=== PATIENT | male | born 1940 | race Caucasian/White ===

== ENCOUNTER 2018-11-12 08:39 | Inpatient (IN) ==
[2018-11-12] MEDS ORDERED: SALINE LOCK IV FLUID XX ONE (08:44)
[2018-11-12] MEDS ORDERED: TYLENOL PO PRN (08:44)
[2018-11-12] MEDS ORDERED: PERCOCET-10 PO PRN (09:49)
[2018-11-12 10:44] LABS: BASO# 0.02 X1000 (0.0-0.2); BASO% 0.2 % (0.0-0.8); EOS# 0.12 X1000 (0.0-0.7); EOS% 1.5 % (0.0-10.0); HEMATOCRIT 43.7 % (42.0-52.0); HEMOGLOBIN 13.6 g/dL (14.0-18.0); IMM GRAN# 0.05 X1000 (0.0-0.04); IMM GRAN% 0.6 % (0.0-0.5); LYMPH# 0.48 X1000 (1.2-3.4); LYMPH% 5.9 % (20.5-51.1); MCH 31.9 PG (27-31); MCHC 31.1 g/dL (33-37); MCV 102.6 FL (81-99); MONO# 0.45 X1000 (0.11-0.59); MONO% 5.5 % (1.7-9.3); MPV 10.3 FL (7.4-10.4); NEUT# 7.05 X1000 (1.4-6.5); NEUT% 86.3 % (42.2-75.2); PLT 183 X1000 (130-400); RBC 4.26 XMIL (4.7-6.1); RDW 16.9 % (11.5-14.5); WBC 8.17 X1000 (4.8-10.8)
[2018-11-12 10:48] LABS: ALLEN TEST YES; BLOOD TYPE ARTERIAL; HCO3-(ACT) 28.4 mmoll (20.0-26.0); METHB 0.6 % (0.0-1.5); O2(CT) 23.2 mL/dL (15.0-23.0); PO2(98.6) 58 mmHg (60-100); SAMPLE BLOOD; SAO2 89.9 % (95.0-100.0); THB 18.9 g/dL (11.5-17.4)
[2018-11-12 10:50] LABS: MODALITY ROOM AIR
[2018-11-12 10:57] LABS: AGAP 12; ALB/GLOB RATIO 1.3; ALBUMIN 3.9 g/dL (3.5-5.0); ALKALINE PHOSPHATASE 90 U/L (32-122); BUN 21 mg/dL (8-22); CALCIUM 10.3 mg/dL (8.8-10.2); CHLORIDE 101 mmol/L (98-107); CK PROFILE 31 U/L (24-204); COSMO 293; CREATININE 0.9 mg/dL (0.7-1.2); ESTIMATED GFR > 60; GLUCOSE 117 mg/dL (70-104); GOT 16 U/L (10-34); GPT 31 U/L (10-44); POTASSIUM 4.3 mmol/L (3.5-5.1); SODIUM 145 mmol/L (136-145); TCO2 32 mmol/L (25-35); TOTAL BILIRUBIN 0.75 mg/dL (0.20-1.00); TOTAL PROTEIN 6.8 g/dL (6.3-8.3)
[2018-11-12 11:05] LABS: PCO2(98.6) 51 mmHg (35-45)
[2018-11-12 11:07] LABS: O2HB 87.8 % (95.0-99.0)
[2018-11-12 11:16] LABS: BANDS 6 % (0-1); LYMPHS 6 % (21-51); MONO 4 % (1-9); SEGS 84 % (42-75)
--- NOTE | 2018-11-12 12:09 | Diag Imaging Result Doc PS360 ---
EXAM: MRI LOW EXT JT W/WO CON-RIGHT 11/12/2018 HISTORY: FALL PAIN RT HIP TECHNIQUE: Axial proton density fat sat, T1, T1 fat sat with contrast, coronal T1 STIR and post contrast T1 fat sat. Sagittal T2 fat sat. COMMENT: There are no previous MR studies of the pelvis. 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 There is an effusion. There is also apparent nondisplaced fracture of the femoral neck. Neither of these abnormalities were visible on the CT of the pelvis dated 07/21/2018. There is bone marrow edema all around the acetabulum particularly posteriorly. There is contrast enhancement in the femoral head and neck as well as in the acetabulum and capsule of the hip. There is some abnormal enhancement anterior to the piriformis muscle and posterior to the hip. 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 Apparent involvement of the femoral neck with inflammatory change and apparently nondisplaced fracture. Correlation with plain radiographs and/or CT is recommended. Electronically signed by Baltazar Barker 11/12/2018 12:07 PM
--- NOTE | 2018-11-12 12:10 | Diag Imaging Result Doc PS360 ---
XRAY HIP UNILATERAL RT - 11/12/2018 INDICATION: RIGHT HIP PAIN TECHNIQUE: COMPARISON: None FINDINGS: There is no fracture or dislocation. There is some mild narrowing of the superior joint space. There is some flattening of the femoral head, or else congenital widening of the proximal femoral neck which may lead to cam type femoral acetabular impingement. There is also moderate vascular calcification of the femoral arteries. IMPRESSION: Osteoarthritis of the right hip flattening of the femoral head. There may be a cam type femoral acetabular impingement. Vascular disease. Electronically signed by Manuel Virgen 11/12/2018 12:08 PM
[2018-11-12] MEDS: NEURONTIN PO SCH ×3 (13:24→16:36)
[2018-11-12] MEDS: LASIX PO SCH ×2 (13:24→23:08)
[2018-11-12] MEDS: ALDACTONE PO SCH (13:24)
--- NOTE | 2018-11-12 16:40 | CONSULTATION ---
DATE OF CONSULTATION: 11/12/2018 CHIEF COMPLAINT: Right hip pain. HISTORY OF PRESENT ILLNESS: Mr. Alcantara is a 78-year-old male who was admitted to the hospital for some shortness of breath and right hip pain. Orthopedics was consulted to evaluate his hip. He has been having hip pain for several months now. It has been progressively getting worse. He has pain in the groin area. Pain is worse when he is up and on it a lot. Does feel better when he is off of it. PAST MEDICAL HISTORY: Depression, diabetes, diabetic neuropathy, reflux, arrhythmia. PAST SURGICAL HISTORY: Prostate resection, 5 back surgeries, thoracotomy, cholecystectomy, kidney surgery, right knee scope. SOCIAL HISTORY: He lives with a spouse. He denies any smoking. MEDICATIONS: Per the medical record. ALLERGIES: Liraglutide REVIEW OF SYSTEMS: Positive for some shortness of breath and right hip pain. PHYSICAL EXAMINATION: General: Well-developed male who is resting in his bed. He is in no acute distress. Head and Neck: Normocephalic, atraumatic. Respirations: Nonlabored breathing. Cardiovascular: Regular pulse. Abdomen: Soft and nondistended. Musculoskeletal: On right hip exam, he has pain with any movement of the hip. He is neurovascularly intact to the right lower extremity with a good 5/5 strength in the muscle groups and good sensation to light touch to all the toes. RADIOGRAPHS: A 2-view of the right hip shows end-stage degenerative changes of the right hip. MRI showed the same thing with some AVN of the head. ASSESSMENT: Right hip osteoarthritis. PLAN: I discussed with Mr. Alcantara about his hip. Unfortunately, he has got a lot of hip osteoarthritis there. He is definitely a candidate for right total hip arthroplasty. He will more than likely need to follow up with one of my partners who does total hip arthroplasty, which is either Dr. Mackay or Dr. Dias. Once he is out of the hospital, he can be worked up on an outpatient basis, and then we can schedule this electively for him and get his hip better. cc: MD Jonathan Mcclendon, DO
[2018-11-12] MEDS: NORVASC PO SCH (23:08)
[2018-11-12] MEDS: LIORESAL PO SCH (23:08)
[2018-11-12] MEDS: MESTINON PO SCH (23:09)
[2018-11-13 00:42] LABS: URINE SOURCE CATH
[2018-11-13 00:45] LABS: BILIRUBIN URINE NEGATIVE (NEGATIVE); BLOOD URINE SMALL (NEGATIVE); COLOR YELLOW; GLUCOSE URINE NEGATIVE (NEGATIVE); KETONE URINE NEGATIVE (NEGATIVE); LEUKOCYTES URINE NEGATIVE (NEGATIVE); NITRITE URINE NEGATIVE (NEGATIVE); PROTEIN URINE NEGATIVE (NEGATIVE); SP GRAVITY URINE 1.012; TURBIDITY URINE CLEAR (CLEAR); UR EPITHELIAL CELLS <10 /HPF (<10); URINE RBC <10 /HPF (<10); URINE WBC <10 /HPF (<10); UROBILINOGEN URINE NORMAL (NORMAL)
[2018-11-13 00:46] LABS: URINE BACTERIA 1+ /HPF
[2018-11-13] MEDS: MESTINON PO SCH ×4 (01:49→16:37)
[2018-11-13] MEDS: ZOFRAN IV PRN (05:44)
[2018-11-13 05:56] LABS: HEMATOCRIT 46.9 % (42.0-52.0); HEMOGLOBIN 14.3 g/dL (14.0-18.0); MCH 31.4 PG (27-31); MCHC 30.5 g/dL (33-37); MCV 103.1 FL (81-99); MPV 9.9 FL (7.4-10.4); RBC 4.55 XMIL (4.7-6.1); RDW 17.2 % (11.5-14.5); WBC 8.06 X1000 (4.8-10.8)
[2018-11-13 06:13] LABS: MAGNESIUM 1.8 mg/dL (1.5-2.7); PHOSPHORUS 3.9 mg/dL (2.7-4.5)
[2018-11-13 06:17] LABS: ALB/GLOB RATIO 1.2; ALBUMIN 3.9 g/dL (3.5-5.0); CALCIUM 9.1 mg/dL (8.8-10.2); CREATININE 1.3 mg/dL (0.7-1.2); POTASSIUM 4.2 mmol/L (3.5-5.1); TOTAL BILIRUBIN 1.27 mg/dL (0.20-1.00); TOTAL PROTEIN 7.2 g/dL (6.3-8.3)
--- NOTE | 2018-11-13 07:49 | EKG Report ---
Test Performed on : 11/13/2018 07:19:41 AM Test Reason : Edema Blood Pressure : / mmHG Vent. Rate : 103 BPM Atrial Rate : 103 BPM P-R Int : 164 ms QRS Dur : 130 ms QT Int : 390 ms P-R-T Axes : 052 089 034 degrees QTc Int : 510 ms Sinus tachycardia. Right bundle branch block Abnormal ECG When compared with ECG of 06-SEP-2015 10:11, No significant change was found Unconfirmed Result
--- NOTE | 2018-11-13 08:32 | Diag Imaging Result Doc PS360 ---
EXAM: CT PELVIS W/CONTRAST INDICATION: Right hip n/d fracture with effusion (infected?) TECHNIQUE: This exam was performed using automated exposure control, adjustment of mA or kV according to patient size, and/or use of iterative reconstruction technique. COMPARISON: CTs dated 07/21/2018 and 04/09/2018 and an MRI dated 11/12/2018 FINDINGS: There is osteonecrosis at the right femoral head that can be seen on the recent MRI but was not present on the previous CTs. There is sclerosis indicating at least part of this is chronic. However, there are linear bony defects at the superior aspect of the femoral head through the affected region that corresponds to linear signal abnormality that is seen on the MRI indicating collapse and fragmentation of the femoral head with an acute component. These are essentially small fractures. No discrete fracture line can be identified involving the the femoral neck specifically. However, linear signal abnormality that extends into the femoral neck seen on the recent MRI is suspicious for a stress phenomenon that may develop into a bouchra fracture. There is a prominent joint effusion. This probably is simply a result of the osteonecrosis and acute collapse. Infectious component is less likely. There are stable bony defects associated with the right ilium, which are likely sites of bone harvest related to prior back surgery. There are extensive surgical changes associated with the lower lumbar spine. Review of the intrapelvic structures reveals uncomplicated diverticulosis coli and extensive aortoiliac atherosclerotic calcification. A Rodriguez catheter is in place. IMPRESSION: Right femoral head osteonecrosis with at least a partial chronic component. However, there is acute fragmentation/collapse at the right femoral head that is probably the cause of the right joint effusion. Electronically signed by Jan Miller 11/13/2018 8:30 AM
--- NOTE | 2018-11-13 08:58 | HISTORY AND PHYSICAL ---
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 He presents to the Internal Medicine service complaining of increasing shortness of breath, lower extremity swelling and progressive right hip pain. He suffered a fall back in August at his residence, was evaluated at that time in the office with plain radiography failing to demonstrate any evidence of acute fracture and was managed conservatively. He returns today with worsening right hip pain, inability to find a position of comfort and inability to bear weight. He denies any fevers chills or night sweats. He fell on August 27. He also reports such issues with urinary incontinence and increased dysuria and his shortness of breath appears to be worsening, longer periods of recovery are reported, previously at 2 to 3 minutes now out at least 15 minutes or more. Historical radiologic studies demonstrating the presence of avascular necrosis. He was considered a candidate for elective total hip arthroplasty, but secondary to long-term use of anticoagulation following thrombosis of venous ligation, it was felt that he could be watched conservatively. He presents now with accelerated pain for surgical re-evaluation. He is admitted to the internal medicine service for further preoperative cardiac workup as well as additional diagnostic imaging and reconsideration for total hip arthroplasty. MEDICATIONS ON ADMISSION: 1. Percocet 10 1 every 6-8 hours p.r.n. 2. Aspirin 325 mg once daily. 3. Neurontin 400 mg t.i.d. 4. Mestinon 60 mg every 4 hours. 5. Vitamin D 1000 international units once daily. 6. Baclofen 10 mg p.o. b.i.d. 7. Metformin 1000 mg once daily. 8. Prevacid 30 mg once daily. 9. Cymbalta 30 mg once daily. 10. Imuran 50 mg once daily. 11. Amlodipine 2.5 mg b.i.d. 12. Bystolic 10 mg once daily. 13. Icar C 1 p.o. daily. 14. Vitamin B12 1000 mcg injectable once a month. 15. Soliris 10 mg/mL, 900 mg every 2 weeks. 16. Atorvastatin 20 mg once daily. 17. Prednisone 20 mg once daily. 18. Lasix 40 mg once daily. 19. Aldactone 12.5 mg once daily. 20. Trulicity 1.5 mg once weekly. PAST MEDICAL HISTORY: As per chart. FAMILY HISTORY: Father at 80 years old, cardiac problems. Mother 28 secondary to complications of diabetes. He has no siblings. Patient is with no children for more than 54 years. He is medically disabled since January 2002 secondary to degenerative low back disease. 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 His initial injury starting in the in 1960. Patient has more than 100 pack year history but quitting in 2010 and an occasional glass a wine 1 to 2 per day. Patient's last annual wellness visit in December 2017 and last CCP physical in June 2018. PAST SURGICAL HISTORY: 1. Laminectomy with fusion in 1996 and 2001. 2. Cervical fusion x2 in 1986. 3. Cholecystectomy in 2008. 4. Knee surgery in 1984 and in 2015. 5. Lung biopsy in 1997. 6. Historical prostate biopsies in 2005 and 2006 reported as normal. 7. TURP in April 2008. 8. Carpal tunnel release in 2009. 9. Neck surgery in 2010. 10. Kidney stone removal in 2005. 11. Additional procedures epidural injections in 08/07 and 11/06, radio ablated procedure for low back pain n 02/06 cystoscopy in September 08. Vein ablation of the lower extremity in 2014 and vein ablation of the right lower extremity complicated by DVT in 2016. HOSPITALIZATIONS: 1. Kidney stone disease and 1970. 2. Percutaneous removal of kidney stones in 2006. 3. Cardiac admission in 2007. 4. Surgery unknown in 2010. 5. And there been no hospitalizations since 2010 as of the fall of 2017. HISTORY: The patient was recently started on GLP-1 for rising hemoglobin A1c from 5.6 to 6.3 as well as accelerated weight gain. He does have overall worsening of proteinuria as well. Despite the presence of peripheral vascular disease as manifested by a carotid disease in 2009, he has multiple risk factors for coronary disease but no definitive diagnosis of atherosclerotic coronary artery disease bu cardiac cath or previous myocardial event (such as an IN). His last stress test noted to be August 2017. He had a calcium score in July 2018 - LAD at 428 right coronary at 172 and circumflex at 175. Some additional studies in June 2018: CT scan of the abdomen and pelvis demonstrating presence of liver cyst bilateral kidney stones, extensive diverticular disease, gastric diverticulum and peripheral vascular disease involving the aorta and iliac system. He has a presence of a chronic right saphenous vein distal thrombosis and a CT scan of the bony pelvis in July 2018 without evidence of fracture. PHYSICAL EXAMINATION: VITAL SIGNS: Vitals on admission blood pressure 120/70, pulse 76, oxygen at 87, temperature 96.5 degrees. Patient weighing 255 with BMI of 42.42. HEENT: Normocephalic, atraumatic. NECK: Soft and supple without lymphadenopathy or bruits. CARDIOVASCULAR: Regular rate and rhythm without murmurs, gallops, or rubs. LUNGS: Clear. ABDOMEN: Obese and protuberant without focal areas of palpatory tenderness, rebound or guarding. EXTREMITIES: 2+ pitting edema. Changes of the lower extremity consistent with chronic venous stasis. He does have some superficial lateral ulcers on the distal left lateral shank. These areas will be assessed over the course of his hospitalization. NEUROLOGICAL: Cranial nerves 2-12 are grossly intact. Patient is alert and oriented without any cognitive deficiencies. He is unable to stand without assistance and unable to stand for more than 1 or 2 minutes without assistance and significant exacerbation of pain. ADMISSION LABORATORY: White blood cell count 8.17, hemoglobin and hematocrit 13.6 and 43.7 with platelets at 183,000. Blood gas obtained showing a pH is 74, pCO2 51, pO2 at 58, bicarb at 28.4, lactate mildly elevated at 2.7, sodium 145, potassium 4 3, chloride 101. BUN and creatinine at 21 and 0.9, glucose at 117 calcium at 10.3, AST and ALT are normal. ProBNP is normal. Urinalysis with the presence of hematuria and 1+ bacteria. Blood cultures are also obtained at the time of admission. 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 The possibility of an infection cannot be excluded., Involvement of the femoral MAC with inflammatory changes and findings consistent with a nondisplaced fracture. Clinical correlation with plain radiography plus or minus CT scan is recommended. X-ray showing osteoarthritis of the right hip and flattening of the femoral head. Possibility of CAM type femoral acetabular impingement is noted and the presence of radiographic vascular disease is noted as well. CT scan of the pelvis bony windows with contrast is pending at the time of dictation. IMPRESSION: A 78-year-old, with history of fall in the context of history of avascular necrosis of the right hip with persistent and accelerated pain involving the right hip with changes about the right hip on MRI that are suggestive of ongoing deterioration. Cannot rule out the presence of superimposed septic hip although the patient is afebrile, hemodynamically stable and continues to have a normal white blood cell count. We will be obtaining blood cultures and re-evaluation with CT scan with bony windows and comparing this to his most recent study in early April. In the interim, workup preoperatively for possible total hip arthroplasty. Last stress test is noted as above. We will seek the opinion of cardiology to reduce his perioperative risk. The patient understands the course of treatment and plan. No further issues at this time. Note is dictated on the morning following admission. cc: Jonathan Van DO MTDNikita
[2018-11-13] MEDS ORDERED: BYSTOLIC PO SCH (09:00)
[2018-11-13] MEDS ORDERED: IMURAN PO SCH ×2 (09:00→11:27)
[2018-11-13] MEDS ORDERED: ICAR-C PO SCH (09:00)
[2018-11-13] MEDS ORDERED: PREDNISONE PO SCH (09:00)
[2018-11-13] MEDS: ASPIRIN PO SCH ×2 (09:59→10:50)
[2018-11-13] MEDS: NEURONTIN PO SCH ×3 (09:59→16:38)
[2018-11-13] MEDS: NORVASC PO SCH (10:00)
[2018-11-13] MEDS: LASIX PO SCH (10:01)
[2018-11-13] MEDS: ALDACTONE PO SCH (10:01)
[2018-11-13] MEDS: LIORESAL PO SCH (10:01)
--- NOTE | 2018-11-13 10:34 | Diag Imaging Result Doc PS360 ---
EXAM: CHEST-PORTABLE 11/13/2018 HISTORY: shortness of breath TECHNIQUE: AP portable at 1019 COMMENT: Patient is rotated slightly to the right. The inspiration is less optimal than on 09/06/2015. There are no definite focal opacities. The possibility of mild interstitial pulmonary edema cannot be excluded however. IMPRESSION: Questionable pulmonary edema. Electronically signed by aBltazar Barker 11/13/2018 10:32 AM
--- NOTE | 2018-11-13 10:41 | PROGRESS NOTE ---
DATE: 11/12/2018 TRANSFER/CRITICAL CARE ICU NOTE: INDICATION FOR TRANSFER FROM THE FLOOR TO THE INTENSIVE CARE UNIT: Hypotensive with blood pressure 100/41, tachycardic at pulse rate of 102 and hypoxic at 85 on room air. INTERVAL CLINICAL HISTORY: Mr. Alcantara was admitted yesterday for inability to ambulate spontaneously on his hip due to acute on chronic fracture. Patient has history of avascular necrosis involving the right hip, was admitted. MRI and CT scan show acute versus subacute fracture of the femoral head. He is currently awaiting definitive orthopedic evaluation and surgical recommendations. I was called this morning at approximately 5:30 with regards to patient having episodes of tremor. Patient was noted to be slightly hypertensive at 147/109 with pulse rate at 90, afebrile, and saturating 100% on 2 L nasal cannula. Rodriguez had been inserted and was noted to have the presence of hematuria, and I was notified accordingly. There were some issues with regards to blood clots within the bladder lumen, and these were expelled through the catheter once the catheter was introduced. Since then, he has had somewhat blood-tinged urine. He has had approximately 1300 mL out. He is being transferred to the intensive care unit following a portable chest x-ray on the floor and ABG, the results of which are pending at this time. We might need additional respiratory assistance and support in the form of BiPAP or even ventilatory support should he continue to decompensate from a respiratory and hemodynamic status. I did discuss with the patient this morning today's happenings, including orthopedic consultation and opinion, neurologic opinion with regards to potential exacerbation of myasthenia gravis, and cardiac opinion with regards to perioperative risk assessment. PHYSICAL EXAMINATION: HEENT: Unremarkable. Cardiac: Tachycardic, but regular rate and rhythm. Lungs: Appear to be clear with poor inspiratory effort. There are no wheezes, rhonchi or rales. Abdomen: Continues to be markedly protuberant and obese without tenderness. Extremities: With marked interval improvement in lower extremity edema. Cool to touch and mild cyanosis suggested in the toes. Neurological: Cranial nerves 2-12 are grossly intact. He does have resting tremor of the upper and lower extremities. LABORATORY: Obtained this morning at approximately 6 o'clock: Sodium 146, potassium 4.2, chloride 98, BUN and creatinine at 21 and 1.3. This would represent a decrease in his kidney function from 0.9 to 1.3. Glucose at 125, calcium at 91, magnesium at 18, phosphorus at 39. AST and ALT are normal. Comparative blood gas is not readily available for review. Complete blood count demonstrating a white blood cell count at 8.06, H and H at 14.3 and 46.9 with platelets at 181. IMPRESSION: A 78-year-old with hypotension and hypoxia, with chronic compensated respiratory failure now with hypoxia. Etiology is queried. Certainly myasthenia gravis should be considered in the differential diagnosis for respiratory compromise. I do feel that it is prudent at this juncture with him clinically declining to be transferred to a higher level of care, and therefore we will be transferring him to the intensive care unit to provide respiratory supportive care as indicated. In the interim, awaiting formal neurologic opinion, awaiting formal orthopedic opinion and awaiting a formal cardiology opinion. There is also a concern that this might represent delirium tremens. The patient has a history of regular alcohol use. This will be explored as the day progresses. Some additional laboratory off this morning's laboratory will be ordered. Awaiting chest x-ray and awaiting ABG. Will likely consult respiratory if indicated and critical care should he decline and require ventilatory management. The patient understands the course of treatment and plan. The is not present at the time of advising the patient that he will be moved to the ICU. No further issues at this time. Note is dictated on the morning of transfer at 10:02 a.m. cc: Jonathan Van DO
[2018-11-13 11:00] LABS: ALLEN TEST YES; BE 7.6 mmoll (-3.0-3.0); BLOOD TYPE ARTERIAL; HCO3-(ACT) 30.8 mmoll (20.0-26.0); METHB 0.7 % (0.0-1.5); O2(CT) 16.9 mL/dL (15.0-23.0); O2HB 93.6 % (95.0-99.0); PCO2(98.6) 47 mmHg (35-45); PO2(98.6) 71 mmHg (60-100); SAMPLE BLOOD; THB 12.8 g/dL (11.5-17.4); pH(98.6) 7.45 (7.35-7.45)
[2018-11-13 11:03] LABS: MODALITY NRB
[2018-11-13] MEDS ORDERED: VITAMIN D PO SCH (11:27)
--- NOTE | 2018-11-13 11:39 | CONSULTATION ---
DATE OF CONSULTATION: 11/13/2018 HISTORY: Mr. Alcantara is 78 years old. He had a spell of shaking this morning with question of neurologic event. History from his attentive is that when she arrived this morning, he seemed to be shaky all over. Description does not sound like clonic activity. At times, he seemed to be shaking one limb more than another, but that was never consistent, sometimes on the right, and sometimes on the left. He seemed to have some trouble speaking clearly to her. The episode resolved in about 45 minutes by report. There is Rodriguez catheter in place and there was no bowel incontinence. There was no tongue biting. There was no postictal state. He reports being awake and aware during the episode. He reports no trouble understanding what his said to him, but he recognized that his speech seemed to be a little bit difficult. He reports no prior similar spell. He has never had diagnosed seizure. reports "TIA" diagnosed 20 years ago with no clear neurologic features to that episode. There was no residual deficit. Our computer chart shows brain MRI with and without contrast 05/08/2016 showing typical white matter changes and nothing remarkable. I do not see any more recent brain imaging report in this computer system. His home medication list has 25 entries. He told me he thinks that is about the right number, and that he takes everything exactly as directed, never misses a dose with anything. He supervises medications himself. There is report of diagnosis of myasthenia gravis made a few years ago. He had presented with facial drooping, possibly eyelid drooping, slurred speech, trouble swallowing. He did not have diplopia. He did not have definite weakness in the limbs. He does not recall details of workup leading to that diagnosis. He has been taking pyridostigmine most of the time since then. He believes it provides benefit, but he reports he does not notice significant change in strength if he is late with a dose. As above, he told me he never misses a dose of anything. He had IVIG infusions in the past. He recently started Soliris, and a few months ago he added azathioprine. All of this is from his and his 's recollection. I do not have any documentation of myasthenia diagnosis and management. Workup here this admission includes lab showing initial hypercalcemia of 10.3, corrected to 9.1 earlier this morning. Blood sugars have been slightly elevated. Creatinine was 0.9 on admission and 1.3 today. Admission ABG showed PO2 58, pCO2 51, and pH 7.4. There is 1+ bacteriuria. PHYSICAL EXAMINATION: On exam now, Mr. Alcantara is awake, alert, and attentive. He seems appropriate. Speech is soft but not dysarthric and not nasal. Language function is intact. Memory of recent and remote events is good. I did not test his cognitive function more thoroughly. Head and neck are unremarkable. Visual thrasher are full tested grossly by confrontational finger counting. Extraocular movements are full. There is no ptosis. Facial motility is little bit diminished bilaterally, but symmetric. Gag is intact. Tongue is midline. Palate elevates in midline. Shoulder shrug is good bilaterally. He has good power in the arms and legs. I did not test him vigorously for fatiguing in the limb muscles due to his reported discomfort in the hip and back with motor testing. He did well on [id number] testing. He has very slight tremulousness now, but there is no classifiable tremor, and no significant shaking. There is no asterixis or myoclonus. Limb tone is symmetric. Plantar response is silent bilaterally. Reflexes are absent at the ankles and 1+ symmetrically at the wrists. He has a stocking pattern of sensory loss on gross testing. I did not test his gait. IMPRESSION: 1. Episode of generalized shaking. Features are not typical of seizure, myoclonus, other specific neurologic or neuromuscular problem. Report that he was awake and aware throughout the episode of generalized shaking is reassuring. I do not have any urgent suggestion for management changes from neurologic standpoint regarding this shaking episode. If he has further episodes, if he has episodes with altered awareness or altered consciousness, or if he has episodes with neurologic change, we might reconsider workup. 2. Previously diagnosed myasthenia gravis. He and confirm he has been very stable in recent months. His minimal trouble with swallowing and coughing is at baseline, by his report. He does not notice any problems in the last few days more than baseline. 3. I encouraged him to be careful with his medicines after discharge, and to keep Neurology followup with Dr. Cruz. Thanks for asking Neurology to see Mr. Alcantara. cc: MD Jonathan Oliva III, DO MTDD
[2018-11-13] MEDS ORDERED: ROCEPHIN 1 GM in NS 50 ML IV SCH (12:00)
[2018-11-13] MEDS ORDERED: VANCOMYCIN 1 GM/NS 1 GM/250 ML IVPB IV SCH (12:00)
[2018-11-13] MEDS: LEVOPHED 8 MG in D5 1/2 NS 250 ML IV SCH (12:39)
--- NOTE | 2018-11-13 14:07 | CARDIOLOGY CONSULTATION ---
DATE: 11/13/2018 FAMILY PHYSICIAN: Dr. Alexandro Van. REASON FOR CONSULTATION: Cardiology was consulted for hypotension, likely sepsis, preoperative evaluation. HISTORY OF PRESENT ILLNESS: Mr. Alcantara is a 81-year-old gentleman with past medical history of spondylosis, multinodular goiter, myasthenia gravis, iron deficiency anemia, avascular necrosis of the right hip, history of thrombosis of the right popliteal vein following saphenous vein ligation, nonobstructive coronary atherosclerosis, diabetes, renal insufficiency, hypertension. He suffered a fall back in August, was evaluated at that time. Has noticed increasing worsening hip pain and this worsened. His radiology studies demonstrated avascular necrosis of his hip. The patient was admitted as part of preoperative workup for consideration of total hip replacement today. He became hypotensive with altered mental status, transferred to ICU, started on Levophed drip and antibiotics. 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 There is acute fragmentation collapse of the right femoral head next. Chest x-ray, questionable pulmonary edema. He is currently unresponsive. History was obtained from the chart. REVIEW OF SYSTEMS: A 14-point review of systems could not be obtained. PAST MEDICAL HISTORY: 1. Last stress test 2017 was negative for ischemia. 2. Coronary calcification. 3. Hypertension. 4. Hyperlipidemia. 5. Diabetes. 6. Peripheral vascular disease. 7. Bilateral carotid disease. 8. Venous insufficiency. 9. Chronic kidney disease. 10. Myasthenia. 11. Sleep apnea. 12. Chronic pain syndrome. MEDICATIONS: 1. Percocet. 2. Aspirin. 3. Neurontin. 4. Mestinon. 5. Baclofen. 6. Metformin. 7. Prevacid. 8. Cymbalta. 9. Imuran. 10. Amlodipine. 11. Bystolic 10. 12. Atorvastatin 20. 13. Prednisone 20. 14. Aldactone 12.5. 15. Trulicity. These were the home medications. In the ICU, he was started on Levophed drip and antibiotics of ceftriaxone, and vancomycin has been started. Blood cultures have been pending. PHYSICAL EXAMINATION: Vital Signs: Blood pressure was 100/41. Heart: First and second heart sounds were heard. The patient is on a Levophed drip. There was no S3 gallop. Respiratory System: Distant breath sounds. Abdomen: Soft. Central nervous system: Could not be assessed. The patient is disoriented, somnolent. LABORATORY EXAMINATION: Sodium 146, potassium 4.2, BUN 21, creatinine 1.3. Hematology: WBC 8, hemoglobin 14.3, platelet count of 181,000, hematocrit 46. Blood cultures taken today as well as yesterday pending. ASSESSMENT AND PLAN: 1. Mr. Jan Alcantara is a 78-year-old gentleman who has been having significant discomfort with hip, has fracture, and surgery is contemplated for the hip from a cardiac standpoint. Today, he had an episode of hypotension, disorientation, and this may be related to sepsis and/or steroid insufficiency. Would recommend continuing Levophed and antibiotics as planned. 2. As far as cardiac status is concerned, electrocardiogram revealed normal sinus rhythm, right bundle branch block. No change from previous. Electrocardiogram. His calcium scores were elevated, however, his stress test in July 2017 revealed no evidence of ischemia. 3. We will get an echocardiogram to assess cardiac and valvular function. 4. Once he is stable from a cardiac standpoint, would recommend proceeding with surgery if required. Given the hypotension episode, it could be elected related to infective etiology in the hip. His white counts were normal, however, this could also be related to hypotension secondary to having been on longstanding steroids. Dr. Van will also adjust medications accordingly. He will also need a CT scan to make sure as to why he is disoriented to rule out any significant intracranial pathology. 5. We will also get an EKG in the morning. 6. Continue with all other medications. Thank you for the consult. We will follow hospital course. cc: MD Jonathan Noel, DO
--- NOTE | 2018-11-13 14:13 | PROGRESS NOTE ---
DATE: 11/13/2018 SUBJECTIVE: We were called to see patient for hypotension and altered mental status. OBJECTIVE: Mr. Alcantara was moved from the floor down to the intensive care unit for concerns with hypoxia and hypotension. He has a history of myasthenia gravis as well as long-term steroid use. He was admitted yesterday for refractory hip pain, this in the context of known avascular necrosis and recent fall, x-rays demonstrating abnormalities within a have suggestive of possible septic arthritis. Considering his precipitous fall in blood pressure it is concerning that this may represent septic shock as a result of a necrotic and potentially infected hip he has been started on fluids with a single bolus of 500, to be followed by another 500 as well as the vasopressors. There is some concern with his myasthenia medicine with concurrent steroid use and the potential for diaphragmatic dysfunction and failure resulting in emergent need for respiratory support. Never the less, he is likely adrenal insufficient. The stress of this infection is likely enough to facilitate myasthenia flare versus adrenal crisis and the steroids might provide additional support. We will start him at 60 mg IV every 8. We will also be I am asking infectious disease to offer us an opinion. Vancomycin has been started as well as Rocephin 1 gram each daily. There may be some concern with regards to peripheral access as well and a central line may be more appropriate in this individual. Admission blood cultures are still pending at the time of this dictation. Current vitals without baseline rate fluids at 65 mL an hour status post 1 bolus of normal saline of 500 mL and now on of vasopressor support, blood pressure 98/50. PLAN: Further management and recommendations as clinical course continues. Cardiology is at the bedside at this time with cardiac opinion. No new and/or additional recommendations at this time. We will follow up later this evening for any update. cc: Jonathan Van DO
[2018-11-13] MEDS: SOLU-MEDROL IV SCH ×2 (14:31→21:00)
[2018-11-13] MEDS: NS 1,000 ML IV PRN ×2 (15:15→23:58)
--- NOTE | 2018-11-13 16:34 | ECHO REPORT ---
ORDER DATE: 11/13/2018 INDICATIONS: Shortness breath, diabetes, lower extremity edema, hip fracture. FINDINGS: 1. The right atrium appears normal in size. 2. There is mild tricuspid regurgitation. RV systolic pressure of 22. 3. Normal RV size and systolic function. 4. I do not see any significant pulmonic insufficiency. 5. Normal left atrial size with a dimension of 3.6 cm. 6. No mitral prolapse. Trace mitral regurgitation. 7. Normal LV size, end-diastolic dimension of 5.2. Normal wall thicknesses with a posterior and interventricular septal wall thickness of 1.1 cm each. Normal LV systolic function. The estimated EF is in the 60% to 65% range with normal wall motion. 8. Aortic valve opens well. It is trileaflet. I do not see any significant stenosis or insufficiency. 9. Aorta appears normal in visualized segments. 10. There may be a scant anterior pericardial effusion, but I believe this is more likely pericardial fat. There is no evidence of tamponade type physiology. 11. On some views, there is a roughly 6.0 cm cystic type lesion that I believe appears in the liver. This is a somewhat compromised difficult view. I would recommend a targeted imaging modality to assess this if clinically indicated. 12. This was a somewhat difficult study with the patient unable to be adequately cooperative with the exam. cc: MD Jonathan Ortiz,
[2018-11-13] MEDS: MAXIPIME 2 GM in NS 100 ML IV SCH (17:17)
--- NOTE | 2018-11-13 17:33 | Diag Imaging Result Doc PS360 ---
EXAM: CT HEAD W/O CONTRAST INDICATION: AMS TECHNIQUE: This exam was performed using automated exposure control, adjustment of mA or kV according to patient size, and/or use of iterative reconstruction technique. COMPARISON: None. FINDINGS: There is patchy low attenuation in the periventricular and subcortical white matter suggesting mild to moderate microangiopathy. There is age-appropriate mild diffuse brain atrophy. There is no definite acute infarct given the limited sensitivity of CT versus MRI. There is no discrete intracranial mass, mass effect, or intracranial hemorrhage. The surrounding soft tissues and bony structures are essentially unremarkable. IMPRESSION: Chronic appearing white matter changes as described. No definite acute intracranial pathology. Electronically signed by Jan Miller 11/13/2018 5:30 PM
--- NOTE | 2018-11-13 17:39 | PROGRESS NOTE ---
DATE: 11/13/2018 P.m. round ICU/critical care note This would be ICU day #1 and hospital day #2. Mr. Alcantara was brought down from the floor this morning after presenting with hypotension and hypoxia. He is currently on vasopressor support with blood pressure at 128/85, saturating at 92% on 100% non-rebreather with a heart rate of 81. Cardiology has seen the patient today making no new and/or additional recommendations. Infectious disease is currently consulting making recommendations for right hip joint aspiration, some adjustments in medication have been made including transitioning from Rocephin to Maxipime and from vancomycin to daptomycin. All oral medications have been temporarily suspended and he has been started on stress dose Solu-Medrol at 60 mg IV q.8. Cumulative I's and O's 2316 in and 1750 out for a total of 566. IMPRESSION: 78-year-old with hypotension and hypoxia with possible right septic arthritis. I appreciate the input of cardiology perhaps perioperatively and Infectious Disease as it relates to medical management. Blood cultures from yesterday's admission continue to be pending. He will remain in the ICU tonight on fluids, IV steroids and vasopressors. I will ask respiratory if they are familiar with following FVC (forced vital capacity) and NIF (negative inspiratory force) as it relates to monitoring myasthenia gravis patients pulmonary function. It is my understanding that these indicators may begin falling prior to a significant change in his ABG. No new and/or additional recommendations at this time. We will continue to follow clinically. I have spoken personally with the who is at the bedside this evening and have made myself available for after hours calls. cc: Jonathan Van DO
[2018-11-13] MEDS: CUBICIN 700 MG in NS 100 ML IV SCH (18:00)
--- NOTE | 2018-11-13 18:24 | INFECTIOUS DISEASE CONSULT REP ---
DATE: 11/13/2018 CONCLUSION: The patient appears to be in a septic condition, the exact etiology of which is uncertain to me. He does have on CT scan a right femoral head osteonecrosis with a right joint effusion. The effusion may be infected. The patient on urinalysis has bacteria but no white cells, but still urinary tract infection is a possibility. Chest x-ray shows pulmonary edema and it does not look like he has a pneumonia. RECOMMENDATIONS: I have discontinued vancomycin and Rocephin, and I put the patient on a combination of daptomycin and cefepime. I have also requested to have the patient's right hip aspirated under CT guidance, and the fluid has been ordered to be cultured and to have a body fluid analysis, which includes cell count and crystals. I am going to go ahead and stop the patient's Crestor since it can interact with daptomycin to increase the risk of muscle toxicity. DISCUSSION: The patient is unable to provide a history and no family member is present. According to the CT scan, the patient was complaining of shortness of breath, lower extremity swelling and progressive right hip pain. His CBC shows a white count of 8060, hemoglobin 14.3 and platelet count 181,000. Arterial blood gases show a pH of 7.45, a pO2 of 71, and a pCO2 of 47. Creatinine is 1.3, GFR is 54. Urinalysis showed bacteria but no white cells. Blood cultures are pending. Chest x-ray shows pulmonary edema. CT scan of the pelvis shows right femoral head osteonecrosis with a right joint effusion. PAST MEDICAL HISTORY: Positive for spondylosis of the lumbar spine, multinodular goiter, myasthenia gravis, lower extremity edema, avascular necrosis of the right hip, benign prostatic hypertrophy, thrombosis of the right popliteal vein following saphenous vein ligation, atherosclerotic peripheral vascular disease, chronic pain syndrome, diabetes with renal involvement, and hypertension. PAST SURGICAL HISTORY: Positive for laminectomy with fusion, cervical fusion, cholecystectomy, knee surgery, lung biopsy, prostate biopsies, transurethral resection of the prostate, carpal tunnel release, neck surgery, kidney stone removal, epidural injections, radioablation procedure for low back pain, cystoscopy, vein ablation of the lower extremity. MEDICATIONS: The patient's home medications include the following: Norvasc, Lipitor, Imuran, baclofen, Celebrex, Lasix, Neurontin, Prevacid, meloxicam, metformin, methocarbamol, Bystolic, oxycodone, Mestinon, Xarelto, Crestor, Ozempic, Aldactone, Flomax and Brintellix. REVIEW OF SYSTEMS: This was unable to be obtained from the patient. PHYSICAL EXAMINATION: Vital signs: Temperature is 99.6 degrees, pulse 79, respirations 23, blood pressure 121/67. The patient is 5 feet 6 inches tall and weighs 253 pounds. Generally this is an obese, elderly male who appears to be ill. Head, eyes, ears, nose and throat: There is no drainage from the nose or ears. When the patient did talk I could not understand what he was saying. Neck: No pain with movement. Lungs clear to auscultation. Cardiovascular: Heart rate is regular. Abdomen is soft and nontender. Neurologic: The patient is lethargic. As mentioned above, he did talk but I could not understand what he was saying. He did move his arms and legs to request. Thank you for the consult. cc: MD Jonathan Spencer, DO
--- NOTE | 2018-11-13 18:39 | OPERATIVE NOTE ---
PROCEDURE DATE: 11/13/2018 PROCEDURE: Left internal jugular vein central venous line placement with ultrasound guidance. PREOPERATIVE DIAGNOSES: 1. Poor venous access. 2. Severe back pain and hip pain. POSTOPERATIVE DIAGNOSES: 1. Poor venous access. 2. Severe back pain and hip pain. DESCRIPTION OF PROCEDURE: We did a preprocedure ultrasound to be sure the left internal jugular vein was patent, and it was. We then lowered the patient to flat position but not a Trendelenburg position. We then prepped and draped the left neck. We then under ultrasound guidance anesthetized the skin. I made a stab incision and accessed the left internal jugular vein. We then passed the guidewire through the needle without difficulty. We dilated the tract and then passed the triple-lumen catheter over the wire. We were able to aspirate blood from each lumen, and irrigated each lumen with saline. We secured the flange to the skin with silk contained within the tray. A Biostep paste was placed at the exit site and a sterile OpSite dressing was applied. He tolerated it well. A chest x-ray was ordered. cc: MD Jonathan Hernandez DO
--- NOTE | 2018-11-13 19:54 | Diag Imaging Result Doc PS360 ---
EXAM: CHEST-PORTABLE INDICATION: cvl placement TECHNIQUE: One view COMPARISON: 11/13/2018 FINDINGS: There is a newly placed left jugular line. The tip projects over the upper center mediastinum and is probably in the brachiocephalic vein. There is no evidence of pneumothorax postplacement. The chest is stable, otherwise. IMPRESSION: Interval placement of a left central line with the tip projecting over the upper center mediastinum, probably in the brachiocephalic vein. No evidence of pneumothorax postplacement. Electronically signed by Jan Miller 11/13/2018 7:52 PM
[2018-11-13] MEDS ORDERED: LIPITOR PO SCH (21:00)
[2018-11-13] MEDS: PERCOCET-10 PO SCH (21:00)
[2018-11-13] MEDS ORDERED: LIORESAL PO SCH (21:00)
[2018-11-13] MEDS ORDERED: NORVASC PO SCH (21:00)
[2018-11-14] MEDS: MAXIPIME 2 GM in NS 100 ML IV SCH ×3 (00:05→16:33)
[2018-11-14 05:12] LABS: ALLEN TEST YES; BLOOD TYPE ARTERIAL; METHB 0.4 % (0.0-1.5); O2(CT) 16.8 mL/dL (15.0-23.0); O2HB 96.9 % (95.0-99.0); PO2(98.6) 133 mmHg (60-100); SAMPLE BLOOD; SAO2 98.5 % (95.0-100.0); THB 12.2 g/dL (11.5-17.4); pH(98.6) 7.35 (7.35-7.45)
[2018-11-14 05:17] LABS: MODALITY BI PAP; PCO2(98.6) 56 mmHg (35-45)
[2018-11-14] MEDS: SOLU-MEDROL IV SCH ×3 (06:15→20:03)
[2018-11-14 06:46] LABS: INR 1.01; PROTIME 14.1 Seconds (11.0-16.0)
[2018-11-14 06:47] LABS: PTT 34.1 Seconds (22.3-41.8)
[2018-11-14] MEDS ORDERED: NS 500 ML IV ONE (06:47)
[2018-11-14 06:56] LABS: BASO# 0.01 X1000 (0.0-0.2); BASO% 0.1 % (0.0-0.8); HEMATOCRIT 38.5 % (42.0-52.0); HEMOGLOBIN 11.6 g/dL (14.0-18.0); IMM GRAN# 0.12 X1000 (0.0-0.04); IMM GRAN% 0.8 % (0.0-0.5); LYMPH# 0.28 X1000 (1.2-3.4); LYMPH% 1.8 % (20.5-51.1); MCH 31.2 PG (27-31); MCHC 30.1 g/dL (33-37); MCV 103.5 FL (81-99); MONO# 0.53 X1000 (0.11-0.59); MONO% 3.4 % (1.7-9.3); MPV 10.6 FL (7.4-10.4); NEUT# 14.77 X1000 (1.4-6.5); NEUT% 93.9 % (42.2-75.2); PLT 142 X1000 (130-400); RBC 3.72 XMIL (4.7-6.1); RDW 17.4 % (11.5-14.5); WBC 15.71 X1000 (4.8-10.8)
[2018-11-14 07:15] LABS: AGAP 13; ALKALINE PHOSPHATASE 68 U/L (32-122); BUN 28 mg/dL (8-22); CALCIUM 8.5 mg/dL (8.8-10.2); CHLORIDE 107 mmol/L (98-107); COSMO 302; CREATININE 1.1 mg/dL (0.7-1.2); ESTIMATED GFR > 60; GLUCOSE 168 mg/dL (70-104); GOT 21 U/L (10-34); GPT 25 U/L (10-44); POTASSIUM 4.2 mmol/L (3.5-5.1); SODIUM 147 mmol/L (136-145); TCO2 27 mmol/L (25-35); TOTAL BILIRUBIN 0.95 mg/dL (0.20-1.00); TOTAL PROTEIN 6.1 g/dL (6.3-8.3)
[2018-11-14 07:21] LABS: LYMPHS 2 % (21-51); MONO 4 % (1-9); SEGS 94 % (42-75)
[2018-11-14] MEDS: PERCOCET-10 PO SCH ×2 (08:26→20:01)
[2018-11-14] MEDS: NS 1,000 ML IV PRN (08:59)
[2018-11-14] MEDS ORDERED: PREDNISONE PO SCH (09:00)
--- NOTE | 2018-11-14 11:59 | PROGRESS NOTE ---
DATE: 11/14/2018 Mr. Alcantara is seen today for his hip pain. He is currently decompensated and may have some evidence of sepsis. He is scheduled to undergo a hip aspiration today just to rule out a infected hip. We will need to follow the results of this. If there is significant hip infection, we may need to consider just debridement and irrigation. Unless he has a significant improvement in his medical condition then he is not going to be a stable surgical candidate for elective hip replacement this Friday. We will follow along the results of the CT aspiration of his hip. cc: MD Jonathan Del Castillo, DO
--- NOTE | 2018-11-14 13:06 | PROGRESS NOTE ---
DATE: 11/14/2018 SUBJECTIVE: This will be hospital day #3, ICU day #2. The patient continues on vasopressor support secondary to hypotension. Over the past 12 to 24 hours the patient's general cognitive presentation has improved significantly. He is alert and communicative, more back towards his baseline, certainly unlike he was yesterday. VITALS: T-max 99.6 degrees, currently at 98.4, blood pressure at 109/66, as low as 85/57. He has been running between 91 to 134 systolic, and diastolic of 52 to 77. Saturation at 94%. Is and Os, are 3392 in and 1950 out for +1.44 L, cumulatively at +1.50 L. DIAGNOSTIC DATA: Laboratories are reviewed this morning. His white blood cell count is 15.71, hemoglobin and hematocrit 11.6 and 38.5, with platelets at 142,000. PT/INR at 14.1 and 1.0. ABG, pH at 7.35, pCO2 at 56, pO2 at 133, lactate at 1.0, saturation at 98.5. Additional labs this morning including chemistry sodium 147, potassium 4.2, chloride 107, bicarb 27, BUN and creatinine at 28 and 1.1. AST and ALT are normal at 21 and 25. Point of care glucose ranging between 72 and 188, likely increased due to Solu-Medrol. Initial blood cultures after 48 hours are noted to be negative. PHYSICAL EXAMINATION: HEENT: Unremarkable. Cardiovascular: Distant heart sounds. Lungs: Clear, with poor inspiratory effort secondary to body habitus. No wheeze or rhonchi. Abdomen: Protuberant, with decreased bowel sounds. He is tender in the right upper quadrant and right lower quadrant to palpation, without rebound or guarding. Extremities: The extremities demonstrate some trace pretibial edema in the right lower extremity and 1+ dorsal pedal edema. The left is unremarkable. Extremities are without cyanosis, but are cool to touch. Neurologic: Cranial nerves 2-12 appear to be grossly intact. IMPRESSION: A 78-year-old, with possible right hip septic arthritis secondary to avascular necrosis complicated by fall, now with ongoing clinical deterioration of the hip and acute fracture by diagnostic imaging. 1. Cardiovascular. He has radiographic coronary disease, without history of [place] or percutaneous intervention. He had a calcium score back in the fall which is noted and has had several historical stress tests perioperatively for procedures in the past, which he has passed without issues. The patient's blood pressure continues to require vasopressor support and Cardiology continues to follow clinically in this regard. Optimization of cardiac status perioperatively is appreciated. The patient's normal globe changer happens to be solutions delivery consultant this weekend, and I have not yet talked to him in this regard. 2. From a respiratory standpoint, the patient continues with supplemental oxygen. Concern over the past 12 to 24 hours for impending respiratory failure secondary to myasthenia gravis flare, NIF is estimated at greater than -60. We will continue to follow this on a b.i.d. schedule. He will continue with nocturnal respiratory support in the form of CPAP. This will be adjusted by Respiratory Therapy. ABG is reviewed today showing a slight increase in bicarbonate, with a slight decrease in pH. We will continue to follow clinically today. He seems to be breathing much better today than he was yesterday, much of this due to his improved cognition. 3. GI. No issues of concern at this time. Considering that he is significantly improved from a cognitive standpoint we will resume his oral medications and advance his diet as tolerated. 4. Orthopedic. Patient presenting with fall, with hip fracture on top of a history of avascular necrosis of the right hip. Infectious Disease recommending right hip arthrocentesis. I have talked personally with the interventional radiologist today who his willing to proceed with this procedure, however, ultimately he will likely need his hip replaced secondary to the presence of baseline avascular necrosis and now complicated by a nondisplaced fracture. He continues on coverage for septic arthritis per Infectious Disease. He remains afebrile. 5. Hematology. Elevated white blood cell count, likely due to steroids. 6. Infectious Disease. Blood cultures to date are noted to be negative. Hip aspirate will be cultured for the presence of microorganism. DISPOSITION: The patient remains a full code. He is markedly improved from yesterday's initial presentation to the ICU. I have expressed concern that he still requires vasopressor support. He appears to be tolerating this without much difficulty. We will continue to follow clinically in this regard. Note is dictated on the morning of rounds. cc: DO WILLY Martinez
[2018-11-14] MEDS ORDERED: MORPHINE IV ONE (13:07)
--- NOTE | 2018-11-14 14:13 | Diag Imaging Result Doc PS360 ---
EXAM: CT DRAIN ABDOMEN ABSCESS W/IMG INDICATION: septic R hip arthritis TECHNIQUE: COMPARISON: 11/13/2018 FINDINGS: Risks, benefits, and alternatives were discussed with the patient and informed consent was obtained. The patient was placed in a supine position and was prepped and draped in sterile fashion. 2 mg of IV morphine was administered for the procedure and local anesthesia was achieved with 1% lidocaine solution. Using CT guidance, a 20-gauge spinal needle was inserted into the right hip joint capsule at approximately 4 mL of blood-tinged synovial fluid was aspirated. This was sent for laboratory analysis. There were no known complications. IMPRESSION: Technically successful CT-guided right hip arthrocentesis. Electronically signed by Jan Miller 11/14/2018 2:11 PM
[2018-11-14] MEDS: LEVOPHED 8 MG in D5 1/2 NS 250 ML IV SCH (14:17)
[2018-11-14] MEDS: NS 1,000 ML IV SCH (14:17)
[2018-11-14] MEDS: MESTINON PO SCH ×2 (14:17→20:02)
[2018-11-14] MEDS: NEURONTIN PO SCH ×2 (14:17→16:34)
[2018-11-14 14:54] LABS: BODY FLUID SOURCE SYNOVIAL FLUID
[2018-11-14 14:55] LABS: WBC BF 5690 /cumm
[2018-11-14 15:18] LABS: MONOS 16 %; POLYS 84 %
--- NOTE | 2018-11-14 15:59 | CARDIOLOGY PROGRESS NOTE ---
DATE: 11/14/2018 CHIEF COMPLAINT: Pain in the hip, abdominal distention. Shortness of breath. SUBJECTIVE: is feeling somewhat better. He has been given antibiotics and IV fluids. He is on oxygen. His chest x-ray yesterday was read as no evidence of pneumothorax. Chest was stable. His EKG today shows sinus rhythm with right bundle branch block and a nonspecific ST in inferolateral leads. His white count is 15,710. He does have neutrophilia. His blood gases on BiPAP assistance showed a pH of 7.35, CO2 of 56, pO2 of 133. Sodium 147, potassium 4.2, BUN 28, creatinine 1.1. His C-reactive protein is very high at 310.14. That is consistent with acute inflammatory process. OBJECTIVE: Vital signs: Blood pressure 109/66, pulse 86, respirations 21, temperature 98.4. General: He is awake, follows commands. HEENT: Unremarkable. Chest: Diminished breath sounds at bases. Heart: Heart sounds regular and rhythmic. I do not hear a gallop or murmur. Abdomen: His abdomen is distended, slightly tympanitic. Extremities: Showed no significant edema. Neurological: Follow commands, moves all 4 extremities. IMPRESSION: 1. 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 2. The patient has abnormal electrocardiogram with a history of coronary atherosclerosis with a negative stress test done most recently on July 2017. Last echocardiogram was done 11/13 and it shows normal left ventricular systolic function. 3. History of myasthenia gravis and chronic pain syndrome. RECOMMENDATION: At this time, the patient is being considered as candidate for hip surgery. Dr. Mackay has been involved in the case. From a cardiology viewpoint, I find no contraindication to proceeding. I will be following him after the surgery. Thank you for the opportunity to participate in his care. cc: MD Jonathan Mcclendon DO
[2018-11-14] MEDS: HUMALOG SUBQ SCH ×2 (16:33→20:02)
[2018-11-14] MEDS: CUBICIN 700 MG in NS 100 ML IV SCH (16:33)
[2018-11-14] MEDS: GLUCOPHAGE PO SCH (20:02)
[2018-11-15] MEDS: MESTINON PO SCH ×4 (02:07→20:46)
[2018-11-15] MEDS: MAXIPIME 2 GM in NS 100 ML IV SCH ×3 (02:07→16:03)
[2018-11-15] MEDS: NS 1,000 ML IV SCH ×2 (03:08→13:29)
[2018-11-15] MEDS: SOLU-MEDROL IV SCH ×3 (05:42→20:50)
[2018-11-15 06:00] LABS: BASO# 0.01 X1000 (0.0-0.2); BASO% 0.1 % (0.0-0.8); HEMATOCRIT 33.9 % (42.0-52.0); HEMOGLOBIN 10.4 g/dL (14.0-18.0); IMM GRAN# 0.08 X1000 (0.0-0.04); IMM GRAN% 0.6 % (0.0-0.5); LYMPH# 0.36 X1000 (1.2-3.4); LYMPH% 2.7 % (20.5-51.1); MCH 31.7 PG (27-31); MCHC 30.7 g/dL (33-37); MCV 103.4 FL (81-99); MONO# 0.44 X1000 (0.11-0.59); MONO% 3.3 % (1.7-9.3); MPV 10.4 FL (7.4-10.4); NEUT# 12.27 X1000 (1.4-6.5); NEUT% 93.3 % (42.2-75.2); PLT 126 X1000 (130-400); RBC 3.28 XMIL (4.7-6.1); RDW 17.1 % (11.5-14.5); WBC 13.16 X1000 (4.8-10.8)
[2018-11-15] MEDS: PREVACID SOLUTAB PO SCH (06:19)
[2018-11-15 06:28] LABS: LYMPHS 2 % (21-51); MONO 4 % (1-9); SEGS 94 % (42-75)
[2018-11-15 06:41] LABS: AGAP 12; ALB/GLOB RATIO 1.1; ALKALINE PHOSPHATASE 68 U/L (32-122); BUN 26 mg/dL (8-22); CALCIUM 7.6 mg/dL (8.8-10.2); CHLORIDE 109 mmol/L (98-107); COSMO 296; CREATININE 0.8 mg/dL (0.7-1.2); ESTIMATED GFR > 60; GLUCOSE 119 mg/dL (70-104); GOT 27 U/L (10-34); GPT 28 U/L (10-44); POTASSIUM 3.9 mmol/L (3.5-5.1); SODIUM 146 mmol/L (136-145); TCO2 25 mmol/L (25-35); TOTAL BILIRUBIN 0.61 mg/dL (0.20-1.00); TOTAL PROTEIN 5.7 g/dL (6.3-8.3)
[2018-11-15] MEDS: HUMALOG SUBQ SCH ×4 (06:51→20:50)
[2018-11-15] MEDS: ZOFRAN IV PRN (08:13)
[2018-11-15] MEDS: PERCOCET-10 PO SCH ×2 (08:19→20:46)
[2018-11-15] MEDS: IMURAN PO SCH (08:19)
[2018-11-15] MEDS: GLUCOPHAGE PO SCH ×2 (08:19→20:50)
[2018-11-15] MEDS: NEURONTIN PO SCH ×3 (08:20→16:03)
--- NOTE | 2018-11-15 09:22 | PROGRESS NOTE ---
DATE: 11/15/2018 SUBJECTIVE: Seeing Mr. Alcantara today for follow-up of his DJD of the hip. He did undergo successful aspiration of the hip yesterday. Gram stain showed 2+ white blood cells, but no organisms. There is only roughly 4-5 mL of aspirate. Clinically, he is slightly better today. Cardiology has felt like he is stable. He continues to require intermittent oxygen and ICU support at the present time. I have discussed with him that unless he has a significant improvement in his medical condition and is certainly stable, I would not necessarily recommend proceeding with elective hip replacement this Friday. We will currently leave him on the schedule. However, it may be better to maximize his medical evaluation and even discharge him where he is stable for several days or up to a week prior to considering an elective hip replacement. We will check his medical condition again tomorrow, but at this point, I am somewhat reluctant to pursue an elective hip replacement given his overall medical status. cc: MD Jonathan Del Castillo, DO
[2018-11-15] MEDS ORDERED: CALCIUM GLUCONATE IV PUSH ONE (10:06)
[2018-11-15] MEDS ORDERED: LASIX IV ONE (10:11)
--- NOTE | 2018-11-15 11:00 | PROGRESS NOTE ---
DATE: 11/15/2018 INDICATION FOR PROLONGED HOSPITALIZATION: Awaiting final culture. DISPOSITION: Right hip joint arthrocentesis for rule out septic joint. Over the past 24 hours the patient has been weaned off vasopressor support and has been off for now nearly 10 hours. His current blood pressure 126/56, heart rate at 80, saturating 92% on 50% Ventimask. Consultative notes from Cardiology and Orthopedics are reviewed. Infectious Disease has not yet rounded on the patient. Patient underwent a right hip joint aspiration yesterday per Interventional Radiology. 4 mL of blood-tinged synovial fluid was aspirated. There are 2+ white blood cells, but no organisms seen. Culture is pending at the time of dictation. Patient has no complaints or concerns this morning with the exception of persistent right hip pain. OBJECTIVE: Vitals: Mean arterial pressure at 108. Respiratory rate at 19. Pulse at 78 saturating 94% on 50% Ventimask. HEENT: Unremarkable. Presence of left internal jugular central venous line is noted. Normocephalic, atraumatic. Pupils are unremarkable. Neck: Otherwise unremarkable. Cardiovascular: Distant heart sounds with regular rate and rhythm. There are no murmurs, gallops, or rubs. Lungs: With decreased breath sounds throughout without evidence of rales or rhonchi. Abdomen: Persistent with protuberance with normoactive bowel sounds. Nonspecific tenderness the right upper and right lower quadrant are still appreciated. Extremities: Demonstrating the presence of trace to 1+ pitting edema in the right lower extremity, as well as dorsal pedal edema. Some early dorsal pedal edema is noted in the left. Persistence of superficial ulceration with surrounding cellulitis at the left lateral shank. Neurologic: Cranial nerves 2-12 are grossly intact. Patient is alert oriented x3 without any cognitive deficiencies. LABORATORY: Additional labs for today. White blood cell count 13.16, hemoglobin and hematocrit at 10.4 and 33.6 with platelets at 126,000. Sodium at 146, chloride at 109, potassium at 3.9. BUN and creatinine at 26 and 0.8. AST and ALT at 27 and 28 respectively. Calcium at 7.6, falling from an admission at 10.3 to 9.1 to 8.5, now to 7.6. Historical lactate at 1.6. Historical folate at 28.6. Additional labs forthcoming for tomorrow, including a CBC, a CMP and a D-dimer as well as an iron panel. Joint aspirate is currently under review for the presence of bacterial organism and B12 is currently pending. Fecal occult blood analysis is anticipated as well. INPUT AND OUTPUT: He is +4.95 L up. IMPRESSION: A 78-year-old with avascular necrosis of the right hip with subsequent collapse, inability to bear weight. He has been evaluated by Orthopedics and underwent a joint aspirate yesterday to rule out the presence of septic arthritis. I have spoken to Orthopedics who expresses reluctance with proceeding secondary to multiple comorbidities. Certainly if the hip culture is positive, he is a contraindication for a total hip arthroplasty secondary to need for long-term IV antibiotics and then reconsideration after approximately 3 months. In the event that it is not infected, further medical maximization is indicated. Concerns would be transitioning back to need for vasopressors. Additional concerns with falling hemoglobin and hematocrit and falling platelets and now a bowel movement which appears to be some melanotic in nature. He has been off of vasopressors since 12:30 this morning. We will continue to follow in this regard. We have resumed many of his oral medications. I appreciate Infectious Disease's input, Cardiology's input, as well as Orthopedics input on this very complicated case. There are no new and/or additional recommendations at this time. The patient has been off vasopressors and is otherwise hemodynamically stable. He could theoretically be a candidate for transfer later this evening or tomorrow should he remain clinically stable, he can be moved back to the 4th floor for ongoing medical management. cc: Jonathan Van DO
--- NOTE | 2018-11-15 11:10 | Diag Imaging Result Doc PS360 ---
EXAM: CHEST-PORTABLE INDICATION: Hypoxia TECHNIQUE: One view COMPARISON: 11/13/2018 FINDINGS: The position of the left central line has not changed. Interstitial markings appear slightly less prominent than the previous study suggesting marginal improvement of the already very mild interstitial edema. Mildly prominent central vasculature suggesting mild pulmonary venous congestion is stable. No new consolidation is identified. Cardiac silhouette is stable. IMPRESSION: Marginal decrease in prominence of the interstitial markings suggesting improvement of the already mild interstitial edema. Stable chest, otherwise. Electronically signed by Jan Miller 11/15/2018 11:08 AM
--- NOTE | 2018-11-15 11:33 | CARDIOLOGY PROGRESS NOTE ---
DATE: 11/15/2018 CHIEF COMPLAINT: The patient was hypotensive, septic. SUBJECTIVE: Mr. Alcantara is in good spirits today. He has some discomfort in the hip. Yesterday he underwent CT-guided hip aspiration which has yielded inflammatory fluid suggesting an inflammatory process. He had 2+ white cells on the Gram stains. No germs were isolated. Culture is ongoing at this time. His Levophed was discontinued, and his blood pressure is holding well. OBJECTIVE: This morning, vital signs show blood pressure 126/56, pulse 78, respirations 19, temperature is 99.2. He is awake. He is on a partial rebreather mask. HEENT is unremarkable. Chest: Symmetrical breath sounds. I do not hear rales. Heart sounds are regular and rhythmic. No gallop or murmur. His telemetry shows sinus rhythm. His ECG this morning showed sinus rhythm with right bundle. That is pretty much the pattern that he has had before. Abdomen is nontender. Extremities showed no significant edema. Neurologic: Follows commands. Moves all 4 extremities. DIAGNOSTIC DATA: White cell count is 13,160, hemoglobin 10.4, hematocrit 33.9, platelet count is 126,000. Sodium is 146, potassium 3.9, BUN is 26, creatinine 0.8. Albumin is 3.0. His blood gases from yesterday showed pCO2 of 56, pH is 7.35, pO2 is 133. IMPRESSION: 1. The patient had episode of hypotension, probably related to sepsis. He is clinically better. 2. Coronary atherosclerosis with negative stress test in the past. 3. Abnormal EKG with right bundle branch block. No evidence of congestive heart failure. Echocardiogram and pro BNP are normal. 4. History of myasthenia gravis. 5. Chronic hypercarbic respiratory failure/dysfunction. 6. History of chronic pain syndrome. RECOMMENDATIONS: At this time, the patient appears to be stable cardiac smith. We will observe on current management per Dr. Jonathan Van and Infectious Disease Service. At this time, we will stand by. I would suggest to consider discussing with pulmonary process improvement consultant regarding the logistics of getting him through general anesthesia in case the decision is made to proceed with hip surgery. cc: MD Jonathan Mcclendon, DO CHLOED
[2018-11-15] MEDS: CUBICIN 700 MG in NS 100 ML IV SCH (16:03)
[2018-11-16] MEDS: MAXIPIME 2 GM in NS 100 ML IV SCH ×3 (00:19→15:59)
[2018-11-16] MEDS: MESTINON PO SCH ×4 (02:26→21:04)
[2018-11-16] MEDS: SOLU-MEDROL IV SCH ×3 (05:33→21:04)
[2018-11-16] MEDS: ZOFRAN IV PRN (05:36)
[2018-11-16 06:14] LABS: BASO# 0.01 X1000 (0.0-0.2); BASO% 0.1 % (0.0-0.8); HEMATOCRIT 34.5 % (42.0-52.0); HEMOGLOBIN 10.5 g/dL (14.0-18.0); IMM GRAN# 0.06 X1000 (0.0-0.04); IMM GRAN% 0.6 % (0.0-0.5); LYMPH# 0.31 X1000 (1.2-3.4); MCH 31.4 PG (27-31); MCHC 30.4 g/dL (33-37); MCV 103.3 FL (81-99); MONO# 0.34 X1000 (0.11-0.59); MONO% 3.3 % (1.7-9.3); NEUT# 9.52 X1000 (1.4-6.5); PLT 134 X1000 (130-400); RBC 3.34 XMIL (4.7-6.1); RDW 17.1 % (11.5-14.5); WBC 10.24 X1000 (4.8-10.8)
[2018-11-16] MEDS: HUMALOG SUBQ SCH ×4 (06:29→21:05)
[2018-11-16 06:30] LABS: AGAP 10; ALB/GLOB RATIO 1.1; ALKALINE PHOSPHATASE 56 U/L (32-122); BUN 26 mg/dL (8-22); CALCIUM 8.2 mg/dL (8.8-10.2); CHLORIDE 111 mmol/L (98-107); COSMO 296; CREATININE 0.8 mg/dL (0.7-1.2); ESTIMATED GFR > 60; GLUCOSE 111 mg/dL (70-104); GOT 21 U/L (10-34); GPT 32 U/L (10-44); IRON SATURATION 40 %; POTASSIUM 3.9 mmol/L (3.5-5.1); SODIUM 146 mmol/L (136-145); TCO2 25 mmol/L (25-35); TIBC 203 ug/dL; TOTAL BILIRUBIN 0.47 mg/dL (0.20-1.00); TOTAL IRON 81 ug/dL (53-167); TOTAL PROTEIN 5.7 g/dL (6.3-8.3); UNBOUND IRON 122 ug/dL (112-346)
[2018-11-16] MEDS: PREVACID SOLUTAB PO SCH (06:30)
[2018-11-16 06:40] LABS: LYMPHS 4 % (21-51); MONO 2 % (1-9); SEGS 94 % (42-75)
--- NOTE | 2018-11-16 07:13 | EKG Report ---
Test Performed on : 11/16/2018 06:59:41 AM Test Reason : abnormal ECG/respiratory failure Blood Pressure : / mmHG Vent. Rate : 067 BPM Atrial Rate : 067 BPM P-R Int : 164 ms QRS Dur : 136 ms QT Int : 448 ms P-R-T Axes : 057 067 034 degrees QTc Int : 473 ms Normal sinus rhythm. Right bundle branch block Abnormal ECG When compared with ECG of 15-NOV-2018 07:21, (Unconfirmed) No significant change was found Unconfirmed Result
[2018-11-16] MEDS: NS 1,000 ML IV SCH (08:04)
--- NOTE | 2018-11-16 08:08 | EKG Report ---
Test Performed on : 11/15/2018 07:21:16 AM Test Reason : EKG Blood Pressure : / mmHG Vent. Rate : 082 BPM Atrial Rate : 082 BPM P-R Int : 170 ms QRS Dur : 130 ms QT Int : 418 ms P-R-T Axes : 059 053 007 degrees QTc Int : 488 ms Normal sinus rhythm. Right bundle branch block Abnormal ECG When compared with ECG of 14-NOV-2018 05:19, (Unconfirmed) No significant change was found Unconfirmed Result
--- NOTE | 2018-11-16 08:12 | EKG Report ---
Test Performed on : 11/14/2018 05:19:34 AM Test Reason : hypotension Blood Pressure : / mmHG Vent. Rate : 080 BPM Atrial Rate : 080 BPM P-R Int : 178 ms QRS Dur : 138 ms QT Int : 412 ms P-R-T Axes : 045 066 008 degrees QTc Int : 475 ms Normal sinus rhythm. Right bundle branch block T wave abnormality, consider lateral ischemia Abnormal ECG When compared with ECG of 13-NOV-2018 07:19, Nonspecific T wave abnormality, worse in Inferior leads T wave inversion now evident in Lateral leads Unconfirmed Result
--- NOTE | 2018-11-16 08:29 | Diag Imaging Result Doc PS360 ---
EXAM: CT ANGIOGRM PULMONARY ARTERIES 11/16/2018 HISTORY: Hypoxia TECHNIQUE: This exam was performed using automated exposure control, adjustment of mA or kV according to patient size, and/or use of iterative reconstruction technique. COMMENT: There are no filling defects in the pulmonary arteries. 3-D MIPS were performed. There is atelectasis versus pneumonia in both lower lobes. The thoracic aorta is without evidence of aneurysm or dissection. There are some calcifications. There is some groundglass opacification in both upper lobes. There is platelike opacity posteriorly in the right upper lobe. There are multiple cysts in the liver. There has been cholecystectomy. There is an apparent diverticulum from the gastric fundus. There are some coronary calcifications. There are calcifications in both subclavian arteries. There are spondylotic changes in the thoracic spine. No evidence of acute bony disease is present. IMPRESSION: No evidence of pulmonary emboli. Bilateral pleural effusions, atelectasis and/or pneumonia. Electronically signed by Baltazar Barker 11/16/2018 8:27 AM
[2018-11-16] MEDS: IMURAN PO SCH (09:03)
[2018-11-16] MEDS: PERCOCET-10 PO SCH ×2 (09:03→21:05)
[2018-11-16] MEDS: NEURONTIN PO SCH ×3 (09:03→15:59)
[2018-11-16] MEDS: ZYVOX PO SCH ×2 (09:57→21:04)
--- NOTE | 2018-11-16 10:38 | INFECTIOUS DISEASE PROGRESS NO ---
DATE: 11/16/2018 PRESENT ILLNESS: The patient I think has pneumonia. RECOMMENDATIONS: I plan to continue with cefepime. I am going to discontinue daptomycin and instead place the patient on Zyvox. DISCUSSION: Patient had presented in a septic condition, and the exact cause was not initially discovered. He did have fluid in his hip. This has been aspirated and the culture is negative and thus, I doubt he has septic arthritis. He is had a CT angiogram that did not show pulmonary emboli, but it did show bilateral either pneumonia or atelectasis. The hip aspirate had a white count of only 5690, and 84% were polymorphonuclear. The crystals are not yet, back and as mentioned above, the culture is negative. His blood cultures are sterile. MEDICATIONS: The patient had been on daptomycin and cefepime, and as mentioned above, I am going to continue cefepime but stop daptomycin and start the patient on Zyvox. PHYSICAL EXAMINATION: Vital Signs: Temperature is 98 degrees, pulse 75, respirations 25, blood pressure 130/59. General: This is a somewhat ill-appearing elderly male. He is in no acute distress at this time. Head, eyes, ears, nose, and throat: He can hear my spoken words and see near objects. He does not have any white patches on his tongue. Neck: The patient has an internal jugular catheter in place. The site is not erythematous or swollen. Lungs: Clear to auscultation. Cardiovascular: Heart rate is regular. Abdomen: Soft and nontender. Neurologic: The patient is awake. He can move his extremities. There is no tremor. Thorax: The patient has an increased AP diameter of the chest. Neurologic: Patient is alert. He can move his extremities. There is no tremor. Integument: No rash. DIAGNOSTIC STUDIES: CBC today shows a white count of 10,240, hemoglobin 10.5, and platelet count 134,000. Creatinine 0.8, GFR is greater than 60. Liver function studies are normal. The hip synovial fluid white blood cell count was 5690 with 84% polymorphonuclears. Crystals are pending. Blood cultures are sterile. CT angiogram as mentioned above showed atelectasis versus pneumonia. ASSESSMENT AND PLAN: As mentioned above, I think the patient may have pneumonia. I am going to continue cefepime and put the patient on Zyvox instead of daptomycin because daptomycin does not achieve a good concentration in the lungs. PATIENT'S COMORBIDITIES: 1. The patient is elderly. 2. He has myasthenia gravis. 3. Avascular necrosis of the right hip. 4. Diabetes with renal involvement. cc: MD Jonathan Spencer DO
[2018-11-16] MEDS ORDERED: LASIX IV ONE (13:31)
[2018-11-16] MEDS: 1/2 NS 1,000 ML IV SCH (13:49)
[2018-11-16] MEDS: DUONEB (A & A) INH SCH ×2 (15:37→20:51)
--- NOTE | 2018-11-16 16:40 | PROGRESS NOTE ---
DATE: 11/16/2018 SUBJECTIVE: Mr. Alcantara is in the hospital being treated for pneumonia and to be evaluated to see if he can undergo a total hip replacement of his right hip. Reports he has felt better since he has been in the hospital. He also reports that his hip pain has increased. He reports he has had some trouble breathing while in the hospital. OBJECTIVE DATA: There is good range of motion of the right hip with some crepitus. There is anterior joint line tenderness. There is negative Homans sign. The patient is having some tenderness to the right lateral hip. There is no redness or signs of infection about the hip. ASSESSMENT: 1. Arteriogram scans indicate possible pneumonia. 2. Degenerative joint disease of the right hip with avascular necrosis. PLAN: We will plan on holding off on his elective surgery at this time until his pneumonia has been resolved. Dictated by MICHAEL Lobato for Jan Mackay MD cc: MICHAEL Lobato MD Jeffrey A. Johnson, DO AGUILERA
--- NOTE | 2018-11-16 18:50 | PROGRESS NOTE ---
DATE: 11/16/2018 INDICATION FOR PROLONGED HOSPITALIZATION: Collapsed right hip secondary to osteonecrosis and recent fall, without evidence of septic arthritis by joint aspiration, now complicated by persistent hypoxia and a CT scan suggestive of bibasilar atelectasis versus pneumonia. Patient is not felt to be a good surgical candidate at this time. He is off vasopressors now for more than 48 hours. Patient is stable for transfer to floor for further hospital treatment, and plans for potential discharge. Patient is without complaints; however, this morning he was noted to have a nonspecifically elevated D-dimer. A CT angiogram was performed, demonstrating findings consistent with no evidence of pulmonary embolism, bilateral pleural effusions, atelectasis, or pneumonia suggested, and also the presence of a gastric diverticulum and known peripheral and coronary artery disease. Today, the patient has been seen by Orthopedics, by Pulmonary, as well as Infectious Disease. Some modification of daptomycin transitioning to Zyvox is noted based on lung parenchyma penetration. VITAL SIGNS: Blood pressure 125/63, respirations at 20, pulse at 75, saturating 94% on 6 L. Inputs and outputs cumulatively are 7.0 L positive. LABORATORY DATA: Laboratory from this morning demonstrate sodium at 146, potassium 3.9, chloride 111, BUN and creatinine at 26 and 0.8, and glucose ranging between 117 and 124. Iron saturation normal at 40, total iron normal at 81. AST and ALT are unremarkable. Stool culture for occult blood is noted to be positive. Synovial fluid with white blood cells and no organisms, and hip culture preliminary from 11/14/2018 noted to be negative. Admission blood cultures from 11/12/2018 noted to be negative. PHYSICAL EXAMINATION: HEENT: Unremarkable with the exception of left external jugular venous catheter. Cardiovascular: Regular rate and rhythm without murmurs, gallops, or rubs. Lungs: Decreased breath sounds in the posterior bases. Abdomen: Protuberant, without focal areas of tenderness or guarding. Extremities: Benign. Neurological: Cranial nerves 2 through 12 are grossly intact. Patient is alert and oriented x3 without any cognitive deficiencies. IMPRESSION: A 78-year-old with bilateral pneumonia, presumed to be aspirative in nature. He is now a contraindication for proceeding with elective hip revision or hip arthroplasty on the right. This will be temporarily delayed. Some adjustment in his antibiotics has been recommended by Infectious Disease. The patient is no longer considered critical care, at risk, or on ventilatory support or pressor therapy at this time, and is stable for transfer to the floor for ongoing inpatient medical management. We did discuss the possibility of several more days of intravenous medication, then eventually transitioning to oral, with discharge to home health and then interval followup in the next 2 to 3 weeks for elective right total hip arthroplasty. We will continue to follow clinically in this regard. The patient and understand the course of treatment and plan. No further issues at this time. cc: Jonathan Van DO
--- NOTE | 2018-11-16 20:48 | PULMONOLOGY CONSULTATION ---
DATE: 11/16/2018 REQUESTING PHYSICIAN: Dr. Jonathan Van. REASON FOR CONSULTATION: Maximize pulmonary status prior to surgery. HISTORY OF PRESENT ILLNESS: Mr. Alcantara is a 78-year-old white male with a 100 pack year history for tobacco (nonsmoker since 2010), history of myasthenia gravis, morbid obesity with a BMI greater than 40, with increasing right hip pain due to avascular necrosis and increasing shortness of breath. The patient reports he has had a cough productive of yellow-green sputum for the last 7 days. The patient has a history of myasthenia gravis, and currently is on Mestinon and Imuran. During this hospitalization, the patient has had transient hypotension with blood pressures into the 60s. He has been evaluated by Dr. Driscoll. His right hip was aspirated, but cultures were negative. He underwent a CT scan of the thorax with pulmonary angiogram which reveals bibasilar infiltrates, but no evidence of pulmonary emboli. He is currently being evaluated for possible total hip arthroplasty tomorrow afternoon. PAST MEDICAL HISTORY: 1. History of hiatal hernia, identified on barium swallow in 2011. 2. History of cricopharyngeal achalasia. 3. History of pharyngeal diverticulum. 4. History of myasthenia gravis, currently on Imuran and Mestinon. 5. Cervical fusion. 6. Status post lumbar laminectomy. 7. Status post cholecystectomy. 8. Status post knee surgery. 9. History of prostate surgery and TURP. 10. History of nephrolithiasis. 11. Avascular necrosis, as per above. SOCIAL HISTORY: Greater than 100 pack year history for tobacco. The patient stopped smoking in 2010 prior to his cervical neck surgery. 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 FAMILY HISTORY: Noncontributory to current presentation. REVIEW OF SYSTEMS: Positive for increased shortness of breath, occasional dysphagia, occasional reflux, recent onset sputum production. PHYSICAL EXAMINATION: General: Reveals an obese white male resting comfortably and in no distress. Vital Signs: He has been afebrile during this hospitalization. BP 125/59, heart rate 78, respiratory rate 15, oxygen saturation 94% on 6 L per nasal cannula. HEENT: Pupils are equal and reactive. Oropharynx is clear. Neck: Supple. Chest: Reveals bibasilar crackles with rhonchi over the large airways. Cardiac: S1, S2. Abdomen: Obese and soft. Extremities: Without edema. LABORATORIES: CT scan as per HPI. Negative inspiratory force is greater than 60. The FEV1 approaches 1 L on bedside spirometry. Arterial blood gas: pH 7.35, pCO2 of 56, PO2 of 133. IMPRESSION: A 78-year-old with bibasilar pneumonia, hypercapnic respiratory failure which is chronic, acute hypoxemic respiratory failure during this hospitalization, extensive tobacco history with possible chronic obstructive pulmonary disease, history of myasthenia gravis with an excellent negative inspiratory force, obesity, hypercapnic respiratory failure, likely multifactorial, with chronic obstructive pulmonary disease and obesity playing a significant role, history of cricopharyngeal achalasia with a significant hiatal hernia with reflux. With the patient's pneumonia, immunosuppression, and recent contrast use, I would not recommend proceeding with surgery tomorrow. I agree with Dr. Driscoll' plan of treating his pneumonia for at least 7 days. The pattern of pneumonia suggests either aspiration indirectly through reflux or direct aspiration with eating. RECOMMENDATIONS: 1. Continue oxygen for hypoxemic respiratory failure. 2. Continue BiPAP at bedtime and as needed for hypercapnic respiratory failure. 3. Agree with antibiotics per Infectious Disease. 4. Gastroesophageal reflux precautions. The patient should be out of bed when eating. He should eat a small meal early in the evening. He should not snack after supper. He should maintain the head of his bed elevated at all times. 5. Recommend barium swallow to evaluate for cricopharyngeal achalasia, aspiration, and gastroesophageal reflux. 6. The patient will be a moderate to high risk surgical procedure for respiratory decompensation following hip replacement given his obesity, myasthenia gravis, immunosuppression, and presumptive chronic obstructive pulmonary disease. cc: MD Jonathan Hannon DO
[2018-11-17] MEDS: MAXIPIME 2 GM in NS 100 ML IV SCH ×4 (01:46→16:07)
[2018-11-17] MEDS: MESTINON PO SCH ×4 (01:48→20:38)
[2018-11-17] MEDS: DUONEB (A & A) INH SCH ×4 (03:32→19:51)
[2018-11-17] MEDS: 1/2 NS 1,000 ML IV SCH ×2 (05:36→17:33)
[2018-11-17] MEDS: SOLU-MEDROL IV SCH ×3 (05:36→20:39)
[2018-11-17] MEDS: HUMALOG SUBQ SCH ×4 (06:34→20:48)
[2018-11-17] MEDS: PREVACID SOLUTAB PO SCH (06:35)
--- NOTE | 2018-11-17 09:53 | Diag Imaging Result Doc PS360 ---
EXAM: BA SWALLOW W/VIDEO SPEECH THER INDICATION: aspiration TECHNIQUE: COMPARISON: 04/25/2016 FINDINGS: There is no aspiration or airway penetration with barium of any consistency. There was a small amount of residual vallecular barium after swallowing. No cricopharyngeus hypertrophy is appreciated. Limited views of the lower esophagus reveal mild spasm involving and delayed passage of contrast through the GE junction. IMPRESSION: Mild spasm involving the distal esophagus and delayed passage of contrast through the GE junction. Please see speech pathology report for full details. Electronically signed by Jan Miller 11/17/2018 9:51 AM
[2018-11-17] MEDS: NEURONTIN PO SCH ×3 (09:55→20:39)
[2018-11-17] MEDS: IMURAN PO SCH (09:55)
[2018-11-17] MEDS: ZYVOX PO SCH ×2 (09:55→20:38)
[2018-11-17] MEDS: PERCOCET-10 PO SCH ×2 (09:59→20:39)
--- NOTE | 2018-11-17 12:49 | PROGRESS NOTE ---
DATE: 11/17/2018 Mr. Alcantara is seen today. I do appreciate Dr. Bernardo's consultation and opinion regarding his overall medical health. At this point in time, we will temporarily sign off and reschedule his hip replacement when his medical condition stabilizes. We have discussed this with Mr. Alcantara. I think this would be in his best interest. We will be available as needed once his medical condition stabilizes and improves. cc: MD Jonathan Del Castillo, DO
[2018-11-17 14:53] LABS: GPT 30 U/L (10-44)
[2018-11-17 15:12] LABS: ALB/GLOB RATIO 1.4; ALBUMIN 3.4 g/dL (3.5-5.0); ALKALINE PHOSPHATASE 58 U/L (32-122); GOT 15 U/L (10-34); TOTAL BILIRUBIN 0.57 mg/dL (0.20-1.00); TOTAL PROTEIN 5.8 g/dL (6.3-8.3)
[2018-11-17 15:13] LABS: AGAP 11; CALCIUM 8.7 mg/dL (8.8-10.2); CHLORIDE 107 mmol/L (98-107); SODIUM 144 mmol/L (136-145); TCO2 26 mmol/L (25-35)
[2018-11-17 15:28] LABS: BUN 27 mg/dL (8-22); ESTIMATED GFR > 60; GLUCOSE 141 mg/dL (70-104)
[2018-11-17] MEDS ORDERED: GAMUNEX-C 10% IV ONE (17:00)
--- NOTE | 2018-11-17 17:57 | INFECTIOUS DISEASE PROGRESS NO ---
DATE: 11/17/2018 PRESENT ILLNESS: Mr. Alcantara is being treated for pneumonia. 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 MEDICATIONS: He is receiving cefepime 2 g IV every 8 hours and Zyvox 600 mg by mouth every 12 hours. PHYSICAL EXAMINATION: Vital Signs: Temperature is 98 degrees, pulse rate 66, respiratory rate 14, blood pressure 137/55, O2 saturations 97% on 6 L nasal cannula. General: This is a morbidly obese chronically ill-appearing elderly gentleman, lying in the bed, currently in no acute distress. HEENT: Atraumatic, normocephalic. Oral mucous membranes are pink and moist. Conjunctivae are pink. Neck: Supple. Trachea is midline. There is a left intrajugular triple- lumen catheter in place. That site is without any edema or erythema. Respiratory: Lung sounds are clear in the upper lobes. Rales noted to the mid and bases. Cardiovascular: Heart rate and rhythm are regular. Normal sinus rhythm with a bundle branch block on the monitor. Abdomen is soft, obese, and nontender. Bowel sounds are active. Neurologic: He is awake, alert, and oriented. Able to move around in the bed independently. No tremor is noted. DIAGNOSTIC STUDIES: No CBC today. His creatinine is 1, estimated GFR is greater than 60. Total bilirubin 0.57, AST 15, ALT 30, alkaline phosphatase 58. His IgA with is 81, IgG 451. Blood cultures have shown no growth. Also there is no growth to the right hip aspirate. No imaging reports today. ASSESSMENT AND PLAN: Mr. Alcantara is receiving cefepime and Zyvox broad-spectrum coverage for pneumonia, which we will continue at this time. Today he has a low immunoglobulin level with an IgG of 451. We will give him [address] Nascimento is seeing the patient and will follow his immunoglobulin levels upon discharge, with monthly IVIG treatments. These plans have been discussed with and recommended by Dr. Driscoll. COMORBIDITIES: 1. Elderly. 2. Morbidly obese. 3. Myasthenia gravis. 4. Avascular necrosis of the right hip. 5. Diabetes mellitus. Dictated by MICHAEL Morrow for Frandy Driscoll MD This chart was documented by, MICHAEL Morrow and accurately reflects the services performed, treatment plan and medical decisions as attested by the providers signature Frandy Driscoll MD. cc: MD Jonathan Spencer DO MTDD
[2018-11-17 17:59] LABS: COSMO 294
--- NOTE | 2018-11-17 18:55 | PROGRESS NOTE ---
DATE: 11/17/2018 SUBJECTIVE: The patient has been subsequently transferred from the Intensive Care Unit to the floor and is now currently in room #418. VITAL SIGNS: This morning, upon seeing the patient, blood pressure 129/60, pulse at 63, respirations at 20, temperature 97.6, saturating 90% on 6 L. Inputs and outputs cumulatively are plus 7.862 liters. Inputs and outputs over the past 24 hours, 3195 in and 2050 out, for plus 1.14 liters. IMAGING STUDIES: He has a barium swallow which has been performed today showing mild spasm involving the distal esophagus and delay of contrast through the GE junction. Pulmonary function testing demonstrating FEV1, FVC at 85% with FEV1 at 1.15 liters at 45% and FVC at 1.35 liters at 38%. FEF 25-75 at 1.223 liters at 68%. CONSULTATIONS: Pulmonary consultative note is reviewed. Management recommendations are appreciated. Infectious Disease note and Orthopedic note for 11/17/2018 are reviewed as well. He will be receiving IVIG 20 grams today at the recommendation of Infectious Disease. LABORATORY DATA: Laboratory for today including a chemistry: Sodium 144, potassium 4.0, chloride 197, BUN 27, creatinine 1.0, glucose 141, calcium 87, AST 30, ALT 58. IgG level at 451. IgM level at 23. IgA level at 81. Low IgG level, low IgM level are noted. PHYSICAL EXAMINATION: HEENT: Unremarkable. Persistence of central venous line in the left neck is noted. Cardiovascular: Distant heart sounds with normal sinus rhythm. Lungs: Poor inspiratory effort with decreased breath sounds in the base. Crackles clearing with repetitive bleeding. Abdomen: Obese without focal areas of tenderness. Normoactive bowel sounds. Extremities: Benign without cyanosis or edema. Neurological: Cranial nerves 2 through 12 appear to be grossly intact. IMPRESSION: A 78-year-old with chronic right-sided hip avascular necrosis, status post collapse/fracture, most likely due to recent traumatic fall. Now, with probable aspiration pneumonia complicated by low IgG. The patient continues on dual antibiotic coverage per Infectious Disease recommendations. Pulmonary function testing showing decreased FEV1. He will receive supplemental IVIG and additional recommendations to follow. I would like to discuss removing the central line and transitioning oral antibiotics, transitioning from intravenous to oral antibiotics in anticipation of discharge with home health care in the next two to three days. We will defer at this time of any surgical intervention, approaching the right hip. No new or additional recommendations at this time. cc: Jonathan Van DO
[2018-11-17] MEDS ORDERED: LASIX IV ONE (21:21)
[2018-11-17] MEDS ORDERED: 1/2 NS 1,000 ML IV SCH (21:30)
--- NOTE | 2018-11-17 21:37 | PULMONOLOGY PROGRESS NOTE ---
DATE: 11/17/2018 SUBJECTIVE: The patient is awake, alert, and conversant. He is having hip pain but is without other complaints. OBJECTIVE: The patient has been afebrile for the last 24 hours. Blood pressure 143/83, heart rate 70, respiratory rate 20, oxygen saturation 95% on 5 L per nasal cannula.HEENT: Pupils are equal and reactive. Oropharynx appears clear. Neck: Supple. Chest: Reveals crackles in both lung bases. Cardiac Exam: S1-S2. Abdomen: Obese and soft. Extremities: Reveal trace edema. LABORATORIES: Barium swallow was reviewed. The patient had no difficulty with initiation and swallowing barium. No evidence of aspiration. The rehabilitation attendant's report was reviewed. There is a concern of nocturnal reflux to the level of the vocal cords. Immunoglobulin G is markedly reduced at 451 with normal IgA and mild reduction in IgM. Sodium 144, potassium 4.0, chloride 107, bicarbonate 26, BUN 27, creatinine 1.0. IMPRESSION: A 78-year-old with: 1. Hypoxemic respiratory failure. 2. COPD. 3. Chronic hypercapnic respiratory failure. 4. Immunodeficiency associated with Imuran use and severe reduction in IgG. 5. Bilateral pneumonia. 6. Morbid obesity. 7. Myasthenia gravis. RECOMMENDATIONS: 1. Agree with replacement of immunoglobulin level. He has received 20 g of immunoglobulin today. I would recommend an additional 20 g tomorrow if he has had no increase in his BUN and creatinine, given his immunosuppression associated with Imuran. 2. Continue antibiotics per Infectious Disease. 3. Nocturnal reflux precautions. The patient was encouraged to eat a small meal at supper, elevate the head of his bed, and not eat after supper. cc: MD Jonathan Hannon DO
[2018-11-18] MEDS: MAXIPIME 2 GM in NS 100 ML IV SCH ×2 (00:40→08:25)
[2018-11-18] MEDS: MESTINON PO SCH ×5 (00:40→21:01)
[2018-11-18] MEDS: DUONEB (A & A) INH SCH ×4 (03:37→20:35)
[2018-11-18 05:50] LABS: BASO# 0.02 X1000 (0.0-0.2); BASO% 0.3 % (0.0-0.8); HEMATOCRIT 37.3 % (42.0-52.0); HEMOGLOBIN 11.4 g/dL (14.0-18.0); IMM GRAN# 0.19 X1000 (0.0-0.04); IMM GRAN% 2.9 % (0.0-0.5); LYMPH# 0.51 X1000 (1.2-3.4); LYMPH% 7.7 % (20.5-51.1); MCH 30.8 PG (27-31); MCHC 30.6 g/dL (33-37); MCV 100.8 FL (81-99); MONO# 0.39 X1000 (0.11-0.59); MONO% 5.9 % (1.7-9.3); MPV 10.4 FL (7.4-10.4); NEUT# 5.54 X1000 (1.4-6.5); NEUT% 83.2 % (42.2-75.2); PLT 137 X1000 (130-400); RDW 16.8 % (11.5-14.5); WBC 6.65 X1000 (4.8-10.8)
[2018-11-18] MEDS: PREVACID SOLUTAB PO SCH (06:06)
[2018-11-18] MEDS: SOLU-MEDROL IV SCH ×2 (06:06→18:04)
[2018-11-18 06:10] LABS: AGAP 11; ALB/GLOB RATIO 1.1; ALBUMIN 3.3 g/dL (3.5-5.0); ALKALINE PHOSPHATASE 56 U/L (32-122); BUN 25 mg/dL (8-22); CALCIUM 8.1 mg/dL (8.8-10.2); CHLORIDE 105 mmol/L (98-107); COSMO 293; CREATININE 0.9 mg/dL (0.7-1.2); ESTIMATED GFR > 60; GLUCOSE 130 mg/dL (70-104); GOT 13 U/L (10-34); GPT 30 U/L (10-44); POTASSIUM 3.8 mmol/L (3.5-5.1); SODIUM 144 mmol/L (136-145); TCO2 28 mmol/L (25-35); TOTAL BILIRUBIN 0.72 mg/dL (0.20-1.00); TOTAL PROTEIN 6.4 g/dL (6.3-8.3)
[2018-11-18] MEDS: HUMALOG SUBQ SCH ×4 (06:19→23:47)
[2018-11-18] MEDS ORDERED: LASIX IV ONE (06:56)
[2018-11-18] MEDS: PERCOCET-10 PO SCH ×2 (08:25→20:59)
[2018-11-18] MEDS: NEURONTIN PO SCH ×3 (08:26→20:59)
[2018-11-18] MEDS: IMURAN PO SCH (08:26)
[2018-11-18] MEDS: GLUCOPHAGE PO SCH ×2 (08:26→21:01)
[2018-11-18] MEDS: ZYVOX PO SCH (08:26)
[2018-11-18] MEDS ORDERED: GAMUNEX-C 10% IV ONE (10:00)
--- NOTE | 2018-11-18 11:13 | Diag Imaging Result Doc PS360 ---
CHEST-2 VIEWS - 11/18/2018 INDICATION: hypoxia COMPARISON: 11/15/2018 FINDINGS: Stable left central line in good position. Stable mild cardiomegaly. Stable hazy infiltrate or atelectasis in the left lung base. No pneumothorax or large pleural effusion. IMPRESSION: Mild cardiomegaly. Hazy infiltrate or atelectasis at the lateral left lung base stable from prior. Electronically signed by Manuel Virgen 11/18/2018 11:11 AM
[2018-11-18] MEDS: CEFTIN PO SCH ×2 (18:02→21:03)
[2018-11-18] MEDS: DOXYCYCLINE PO SCH (18:03)
--- NOTE | 2018-11-18 18:36 | INFECTIOUS DISEASE PROGRESS NO ---
DATE: 11/18/2018 PRESENT ILLNESS: The patient is being treated for pneumonia. He has an immunoglobulin deficiency with an IgG level of 451. Also, it was noted in the patient's hip that was aspirated the synovial fluid was positive for gout crystals. Therefore, it would appear the patient has gout. MEDICATIONS: Currently the patient is on cefepime and Zyvox. PHYSICAL EXAMINATION: Vital Signs: Temperature is 97.7 degrees, pulse 74, respirations 20, blood pressure 130/80. General: This is an obese, chronically ill-appearing, elderly male. He is in no acute distress. Head, eyes, ears, nose, and throat: He can hear my spoken words and see near objects. He does not have any white patches on his tongue. Neck: No pain with movement. Lungs: There were bibasilar rales. Cardiovascular: Heart rate is regular. Abdomen: Soft and nontender. Neurologic: The patient is alert. He can move his extremities. There is no tremor. LAB AND X-RAY: Chest x-ray shows a left lower lobe infiltrate that is getting better. IgG level was 451, IgA was 81. Liver function studies were normal. Creatinine is 0.9. GFR is greater than 60. CBC shows a white count of 6,650, hemoglobin 11.4, and platelet count 137,000. ASSESSMENT AND PLAN: Patient has pneumonia, immunoglobulin deficiency, and gout based by finding gout crystals in the patient's hip synovial fluid. I have talked to Dr. Van and our plan is to change the patient to oral antibiotics, namely Ceftin 500 mg p.o. every 12 hours and doxycycline 100 mg p.o. every 12 hours for another 7 days. The patient will be seen in follow up by Dr. Van. As regarding the patient's low IVIG, Dr. Nascimento is going to get the patient on monthly injections of IVIG. COMORBIDITIES: The patient is elderly. He is obese. He has myasthenia gravis as well as avascular necrosis of the right hip and diabetes mellitus. I am available to see the patient on a p.r.n. basis. He will be having follow up with Dr. Van and with Dr. Nascimento for his immunoglobulin infusions. cc: MD Jonathan Spencer, DO
--- NOTE | 2018-11-18 21:56 | PULMONOLOGY PROGRESS NOTE ---
DATE: 11/18/2018 SUBJECTIVE: The patient is awake, alert, and conversant. He reports his shortness of breath has diminished. His cough is now nonproductive. OBJECTIVE: Vital Signs: The patient has been afebrile for the last 24 hours. Blood pressure 129/78, heart rate 73, respiratory rate 21, oxygen saturation 97%. HEENT: Pupils are equal and reactive. Oropharynx is clear. Neck: Supple. Chest: Reveals crackles in both lung bases. Cardiac exam: S1, S2. Abdomen: Obese and soft. Extremities: Reveal trace edema. LABORATORIES: White blood count normal at 6.65, hemoglobin 11.4, platelet count 137,000, sodium 144, potassium 3.8, chloride 105, bicarbonate 28, BUN 25, creatinine 0.9. Microbiology reveals no new data. IMPRESSION: A 78-year-old with: 1. Chronic obstructive pulmonary disease. 2. Bilateral pneumonia. 3. Immunoglobulin deficiency. 4. Chronic immunosuppression due to Imuran. 5. Chronic hypercapnic respiratory failure. 6. Obesity. 7. Myasthenia gravis. 8. Severe arthritis in the right hip with associated crystals and fluid. RECOMMENDATIONS: 1. Continue antibiotics per Infectious Disease. 2. The patient has received 60 g of immunoglobulin, and this should be more than adequate. 3. Continue nocturnal reflux precautions. This was discussed with the patient. 4. Anticipate outpatient antibiotics with rescheduling of his right hip surgery for 2 to 3 weeks. cc: MD Jonathan Hannon,
--- NOTE | 2018-11-18 22:35 | DISCHARGE SUMMARY ---
ADMISSION DATE: 11/12/2018 DISCHARGE DATE: DISCHARGE DIAGNOSES: 1. 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 2. Hypotension and hypoxia complicated by altered mental status. Etiology queried. Patient requiring approximately 36 hours of vasopressor support in the ICU. 3. Anemia with heme positive stool, clinically stable. No indication for transfusion during this admission. 4. Aspirative pneumonia likely secondary complication to altered mental status. 5. Leukocytosis likely steroid mediated. 6. Respiratory compromise requiring 100% Ventimask support, improved with aggressive pulmonary toilet and diuresis. 7. Abnormal screening for respiratory disease, pulmonary function test demonstrating FEV1/FVC at 85%, FEV1 at 1.15 L at 45%, FVC at 38% at 1.35 L and FEF 25/75 at 1.23 L at 68%. Abnormal swallowing study consistent with esophageal spasm in the distal portion with delayed passage of contrast through the gastroesophageal junction. This may represent distal esophageal stricture. 8. 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 IgM deficient CONSULTATIONS DURING ADMISSION: Including Orthopedics (acute fx), Infectious Disease (r/o septic arthritis/aspiration pneumonia), Pulmonary (hypoxia, MG respiratory failure, COPD, aspiration pneumonia), General Surgery (CVL placement) and Cardiology (zuleyma-operative cardiac clearance) and Heme/Onc (IgG and IgM deficiency). PROCEDURES DURING ADMISSION: Includin. MRI of the right hip on admission for fall and right-sided pain, inability to bear weight. Findings consistent with chronic ischemic necrosis of the femoral head with marked inflammatory changes in and around the joint space. The possibility of infection cannot be ruled out. Recommendations for followup CT scan. 2. CT scan of the pelvis demonstrating right femoral osteo head necrosis with at least partial chronic component. Acute fragmentation and collapse is suggested. 3. CT-guided right hip arthrocentesis 4 mL of blood-tinged synovial fluid is aspirated with negative bacterial culture. 4. CT angiogram for elevated D-dimer, hypoxia and hypotension demonstrating evidence of platelike opacity in the right upper lobe. Ground-glass opacification in the upper lobes. Diverticulum in the gastric fundus. Radiographic evidence of coronary disease. No evidence of pulmonary embolism. Aspiration pneumonia is suggested. 5. A barium swallow on 11/17/2018 with findings as mentioned above. 6. Pulmonary function test with findings as mentioned above. 7. Central Line placement for peripheral access HOSPITAL COURSE: The patient was admitted on the from the Internal Medicine Clinic after presenting following a fall with inability to bear weight and ambulate on the right hip secondary to intractable pain. Has a previous history of avascular necrosis on the right and has been deemed a high-risk operative candidate. Considering recent fall and inability to bear weight, he was admitted to the internal medicine service for further diagnostic workup. An MRI on admission demonstrated evidence of acute on chronic changes. A subsequent CT scan of the pelvis was performed demonstrating questionable findings of possible septic arthritis. Infectious Disease and Orthopedics were consulted for assistance and management. On the morning following his admission, he was noted to be hypotensive with blood pressure 100/41, tachycardic to a pulse of 102 and hypoxic on room air. It was felt that the patient was in impending respiratory distress and possibly early sepsis. He was subsequently transferred to the intensive care unit and placed on vasopressors. He continued on vasopressors with some mild improvement over 24 to 36 hours. Blood cultures obtained from admission returned as negative. Cardiology was consulted as was pulmonology for assistance with respiratory management. Considering increased need for oxygen, a CT angiogram was ordered of the chest demonstrating the presence of probable aspiration. Antibiotics were adjusted and changed. Patient remained hemodynamically stable, off of vasopressors and was subsequently transferred to the floor where he has continued to recover. He continues to remain hemodynamically stable and afebrile. The central venous line in the left neck was discontinued the night prior to discharge. He was also transitioned to oral antibiotic coverage for ongoing medical management of aspiration pneumonia. DISPOSITION: The patient is to be discharged to home on the morning of 11/19/2018, this in conjunction with home health care and supplemental oxygen. He will follow up in the near future with regards to Orthopedics for re-evaluation of elective total right hip arthroplasty. In the interim, he will need to finish a full 10-day course of oral antibiotics at the discretion of infectious disease. I will be in in the morning to re-evaluate for final disposition, review medications and assist with discharge and coordination of home oxygen tomorrow morning. Otherwise there are no new and/or acute issues at this time. The patient understands the course of treatment and plan. Note is dictated on the evening of rounds. cc: DO WILLY Martinez
[2018-11-19] MEDS: MESTINON PO SCH ×2 (01:47→09:05)
[2018-11-19] MEDS: DUONEB (A & A) INH SCH ×2 (03:55→10:03)
[2018-11-19] MEDS: SOLU-MEDROL IV SCH (05:53)
[2018-11-19] MEDS: DOXYCYCLINE PO SCH (05:59)
[2018-11-19] MEDS: PREVACID SOLUTAB PO SCH (06:00)
--- NOTE | 2018-11-19 07:22 | DISCHARGE SUMMARY ---
ADMISSION DATE: 11/12/2018 DISCHARGE DATE: 11/19/2018 ADDENDUM: DISCHARGE MEDICATIONS: Include: 1. Imuran 50 mg once daily. 2. Ceftin 500 mg b.i.d. This is a new medication with prescription provided. 3. He does have doxycycline as well, 100 mg b.i.d. This is a new prescription with a hard copy provided. 4. Gabapentin 400 mg t.i.d. 5. Metformin 1000 mg once a day. 6. Percocet 10 mg b.i.d. p.r.n. 7. Mestinon 60 mg every 6 hours. 8. Aspirin 325 mg once daily. 9. Lipitor 20 mg once daily. 10. Baclofen 10 mg p.o. b.i.d. 11. Lasix 40 mg once daily. 12. Iron replacement 1 tablet once daily. 13. Robaxin 75 mg t.i.d. 14. Bystolic 10 mg daily. 15. Crestor 10 mg once daily. 16. Aldactone 12.5 mg at bedtime. 17. Flomax 0.4 mg p.o. at bedtime. DISPOSITION: The patient is released to home with [facility]. DISCHARGE INSTRUCTIONS: He will need some durable medical supplies including supplemental oxygen, both a portable source and a home concentrator. Each of these will be set at 2 L per nasal cannula, indication COPD, hypoxia and aspiration pneumonia. He will continue 10 days of oral antibiotic therapy for aspiration pneumonia specifically as directed by Infectious Disease and in agreement with Pulmonology. In the next 2 to 3 weeks, he will need to see Orthopedics for re- evaluation for semielective right total hip arthroplasty and I would like to see the patient back no later than 7 days from discharge for post hospital follow up as indicated. Patient and understand the course of treatment and plan. No further issues at this time. Note is dictated on the morning of discharge. cc: Jonathan Van DO
[2018-11-19] MEDS: HUMALOG SUBQ SCH ×2 (08:04→11:44)
[2018-11-19] MEDS: IMURAN PO SCH (09:06)
[2018-11-19] MEDS: CEFTIN PO SCH (09:06)
[2018-11-19] MEDS: NEURONTIN PO SCH (09:06)
[2018-11-19] MEDS: GLUCOPHAGE PO SCH (09:06)
[2018-11-19] MEDS: PERCOCET-10 PO SCH (09:07)
[2018-11-19 11:44] VITALS: BP 136/61
[2018-11-19] MEDS ORDERED: NEURONTIN PO SCH (15:00)
--- NOTE | 2018-11-19 19:37 | HEMO/ONC CONSULTATION ---
DATE: 11/19/2018 ADMITTING PHYSICIAN: Dr. Jonathan Van REQUESTING PHYSICIAN: Dr. Jonathan Van We appreciate this consult. CHIEF COMPLAINT: IgG deficiency. HISTORY OF PRESENT ILLNESS: Mr. Alcantara is a pleasant 78-year-old male with a history of spondylosis of the lumbosacral spine, multinodular goiter, myasthenia gravis, iron-deficiency anemia, avascular necrosis of the right hip, BPH, right popliteal vein DVT, peripheral vascular disease, chronic pain syndrome, diabetes mellitus type 2, chronic kidney disease, and hypertension. The patient presented to his primary care provider with complaints of shortness of breath, lower extremity swelling, and progressive right hip pain. Patient suffered a fall back in August, but underwent x-rays which revealed no evidence of fracture. The patient was managed conservatively. Mr. Alcantara was ultimately admitted secondary to worsening right hip pain and inability to bear weight as well as deconditioning. Radiologic studies at [facility] reveal presence of avascular necrosis. The patient was considered for total hip arthroplasty but has been on long-term anticoagulation secondary to thrombosis of venous ligation. Surgery is currently following. Upon admission, he patient also experienced episodes of generalized shaking. The patient does have a history of myasthenia gravis. Neurology was consulted. Seizure was ultimately ruled out. The patient is followed by Dr. Cruz of Neurology and has been on Solaris. He does have a history of immunoglobulin treatment but has not recently been treated with immunoglobulins and patient was found to have an IgG deficiency on this admission. We are consulted for IVIG replacement. PAST MEDICAL HISTORY: As in HPI. PAST SURGERY HISTORY: 1. Laminectomy with fusion. 2. Cervical fusion x2. 3. Cholecystectomy. 4. Knee surgery x2. 5. Lung biopsy. 6. Prostate biopsies. 7. Transurethral resection of the prostate. 8. Carpal tunnel release. 9. Neck surgery. 10. Kidney stone removal. FAMILY HISTORY: Negative for any hematologic or oncologic problem. SOCIAL HISTORY: The patient has a 100 pack year history of smoking cigarettes and quit in 2010. He drinks an occasional glass of wine and does not use illicit drugs. MEDICATIONS ON ADMISSION: 1. Percocet. 2. Aspirin 325 mg. 3. Neurontin. 4. Mestinon. 5. Vitamin D. 6. Baclofen. 7. Metformin. 8. Prevacid. 9. Cymbalta. 10. Imuran. 11. Amlodipine. 12. Bystolic. 13. Icar C. 14. Vitamin B12. 15. Delirium. 16. Atorvastatin. 17. Prednisone. 18. Lasix. 19. Aldactone. 20. Trulicity. ALLERGIES: No known drug allergies. REVIEW OF SYSTEMS: A 14 point review of systems was obtained and is negative except as mentioned in HPI. PHYSICAL EXAMINATION: General: Mr. Alcantara is a 78-year-old male, lying supine in bed. He is somewhat ill appearing but in no immediate distress. Vital Signs: Temperature 97.6 degrees, blood pressure 129/62, heart rate 63, respirations are 20, O2 saturation is 90% on 6 L nasal cannula O2. HEENT: Normocephalic, atraumatic. Mucous membranes are pale and moist. Sclerae is anicteric. Extraocular movements intact. Neck: Supple. Lungs: With decreased breath sounds in bilateral bases. Cardiovascular: S1-S2 is heard without murmur, rub or gallop. Abdomen: Nondistended. Extremities: No clubbing or cyanosis. The patient does have 1+ bilateral lower extremity edema. Dermatologic: No rashes, bruises or lesions. Neurologic: The patient is awake, alert, and oriented x3. He has no focal deficits. LABORATORY DATA: Hemoglobin 10.5, hematocrit 34.5, white blood cell count 10.24, platelets 134,000, sodium 146, potassium 3.9, chloride 111, CO2 is 25, BUN 26, creatinine 0.8, and glucose is 111. Calcium is 8.2, iron saturation is 40%. IgA date is 81, IgG 451, IgM 23. ASSESSMENT AND PLAN: 1. IgG/IgM deficiency. The patient does have a history of IVIG treatment secondary to myasthenia gravis. He has been transitioned to Solaris. We will schedule the patient for IVIG replacement and make a followup appointment for next dose of IVIG in 4 weeks. 2. Avascular necrosis of the right hip with questionable sepsis. Arthroplasty is currently delayed. The patient is on cefepime. Surgery is currently following. 3. Hypoxemic respiratory failure. The patient is on nasal cannula O2. Hypoxemia has improved. 4. Bilateral pneumonia likely secondary to aspiration. The patient is currently on cefepime and being followed by Infectious Disease. 5. Myasthenia gravis. The patient is followed by Dr. Cruz. He is currently on Solaris and has had no recent exacerbation. 6. We will follow along with you and make further recommendations pending outcomes. The above reflects the history, exam, assessment and plan of Dr. Nascimento. Dictated by MICHAEL Guerrero for Simon Nascimento MD cc: MICHAEL Guerrero MD Jeffrey A. Johnson, DO
== END 2018-11-19 14:03 | disposition home health service (06) | DRG 553 ==
LOC: DIRADM 08:39 → 4N 08:50 → ICU 11-13 11:19 → 4N 11-16 22:13
PROVIDERS: ADMIT Internal Medicine; ATTEND Internal Medicine
CPT/HCPCS: 49041; 49405; 49406; 70450; 71010; 71020; 71045; 71046; 71275; 72193; 73502; 73723; 74230; 80053; 81001; 82270; 82550; 82746; 82784; 82805; 82948; 83540; 83550; 83605; 83735; 83880; 84100; 84425; 85025; 85027; 85379; 85610; 85651; 85730; 86140; 87040; 87070; 87205; 89051; 92611; 93005; 93010; 93306; 93970; 94640; 94660; 94760; 94761; 94799; 97110; 97116; 97162; 97530; A9270; A9579; J0610; J0692; J0696; J0878; J1561; J1815; J1940; J2270; J2405; J2920; J2930; J3370; J7030; J7040; J7500; J7506; J7512; Q9967; XXXXX

== ENCOUNTER 2018-12-10 22:47 | Inpatient (IN) ==
[~2018-12-10 22:47] MED LIST: LASIX IV ONE; NS 1,000 ML IV PRN; SALINE LOCK IV FLUID XX ONE
--- NOTE | 2018-12-10 23:24 | HISTORY AND PHYSICAL ---
ATTENDING PHYSICIAN: Jonathan Van DO ADMITTING PHYSICIAN: Jonathan Van DO CHIEF COMPLAINT: Intractable right-sided hip pain secondary to avascular necrosis. HISTORY OF PRESENT ILLNESS: This is a 78-year-old gentleman with a past medical history consistent with spondylosis of the lumbosacral spine, considered a nonoperative candidate secondary to multiple historical interventions in the past; multinodular goiter; myasthenia gravis; lower extremity edema secondary to multifactorial causes; iron-deficiency anemia; BPH; historical thrombosis of the right popliteal vein, followed by saphenous vein ligation; atherosclerotic peripheral vascular disease; chronic pain syndrome; diabetes with renal involvement; hypertension. He presents to the emergency room this evening with complaints of intractable right hip pain and unable to find a position of comfort. He was admitted to the Internal Medicine service approximately 11/12/2018 for intractable hip pain and underwent several days of evaluation, including a right arthrocentesis for rule-out septic joint. This returned as unremarkable. He was not felt to be a surgical candidate at that time secondary to being relatively unstable. He has now been out of the hospital for 4 weeks and continues to suffer with ongoing pain. He takes narcotic therapy q.6-8 hours p.r.n., and has not had a period of relief. He was recently seen in the past 24-48 hours for hypotension and altered mental status, and was released to home. He is admitted to the Internal Medicine service for evaluation and consultation with Orthopedics for arranging for right total hip arthroplasty. MEDICATIONS: On admission including Percocet 10 mg every 6 to 8 hours p.r.n.; aspirin 325 mg once daily; Neurontin 400 mg t.i.d.; Mestinon 60 mg every 6 hours; vitamin D supplement 1000 International Units once daily; baclofen 10 mg p.o. b.i.d.; metformin 1000 mg once daily; Prevacid 30 mg once daily; Cymbalta 30 mg once daily; Imuran 50 mg once daily; amlodipine 25 mg b.i.d.; Bystolic 10 mg once daily; Icar-C 1 p.o. daily; supplemental B12; Soliris 10 mg/mL 900 mg every 2 weeks; atorvastatin 20 mg once daily; Lasix 40 mg once daily; Aldactone 12.5 mg once daily. He has been historically on prednisone as well and Trulicity, but these have been stopped. PAST MEDICAL HISTORY: As per HPI. FAMILY HISTORY: Father at 80 years old. Mother at 28 secondary to diabetic complications. He is an only child. The patient is for more than 54 years, and has been medically disabled since 01/2002 secondary to advanced degenerative low back disease. 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 His initial injury started in the in 1960. The patient has more than [id number] history, after quitting in 2010. He has a rare glass of wine. 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 PAST SURGICAL HISTORY: Laminectomy with fusion in 1996 and 2001; cervical fusion x2 in 1986; cholecystectomy in 2008; knee surgery in 1984 and in 2015; lung biopsy in 1997; historical prostate biopsies in 2005 and 2006, reported as normal; TURP in 2007; carpal tunnel release in 2009; neck surgery in 2010; kidney stone removal in 2005. Additional procedures including epidural injections in 2013 and 2014, as well as radioablation procedures for low back pain in 01/2015; cystoscopy in 08/2014; ablation of the lower extremity in 2014; ablation of the right lower extremity complicated by DVT in 2016. Most recent procedures including right hip joint aspiration for rule out septic joint. Culture noted to be negative. Patient having a central line placement during his last admission, secondary to poor peripheral access. HOSPITALIZATIONS: Kidney stone in 1969; percutaneous removal of kidney stones in 2006; cardiac admission in 2007; some unknown surgery in 2010; hospitalization in 10/2018 for intractable right hip pain secondary to avascular necrosis, rule out presence of septic hip. PHYSICAL EXAMINATION: Pending at the time of dictation. DIAGNOSTIC DATA: Most recent studies including a pulmonary function test done in November: FEV1 at 1.15 L or 45% of predicted; FVC at 1.35 L or 38% of predicted; FEV1/FVC ratio at 85% of predicted; FEF 25-75% at 1.23 L at 68% of predicted. The patient having a CT-guided right hip arthrocentesis, with no evidence of septic arthritis by culture. CT scan obtained and compared to historical studies, demonstrating right femoral head osteonecrosis and a partial chronic component. Acute fragment and/or collapse at the right femoral head is a probable cause of recent joint pain and effusion. MRI of the right hip dated 11/12/2018 showing chronic ischemic necrosis of the femoral head, with marked inflammatory changes in and around the joint space; partial collapse versus nondisplaced fracture is noted. The patient also has history of known avascular necrosis. IMPRESSION AND PLAN: A 78-year-old gentleman with intractable right hip pain secondary to known history of avascular necrosis, with recent fall complicated by partial collapse, status post recent admission and discharge for septic arthritis rule-out. Patient now presenting to the Internal Medicine service via the emergency room for progressive and persistent right hip pain. He is expressing interest in right total hip arthroplasty for definitive management and pain relief. He will be admitted to the Internal Medicine service with orthopedic consultation and pain management. No further issues at this time. Note is dictated in the emergency room prior to the patient's arrival. cc: Jonathan Van DO
[2018-12-10 23:56] LABS: BASO# 0.02 X1000 (0.0-0.2); BASO% 0.3 % (0.0-0.8); EOS# 0.06 X1000 (0.0-0.7); EOS% 0.8 % (0.0-10.0); HEMATOCRIT 38.1 % (42.0-52.0); HEMOGLOBIN 11.6 g/dL (14.0-18.0); IMM GRAN# 0.04 X1000 (0.0-0.04); IMM GRAN% 0.5 % (0.0-0.5); LYMPH# 0.54 X1000 (1.2-3.4); LYMPH% 7.2 % (20.5-51.1); MCH 31.6 PG (27-31); MCHC 30.4 g/dL (33-37); MCV 103.8 FL (81-99); MONO# 1.08 X1000 (0.11-0.59); MONO% 14.4 % (1.7-9.3); MPV 10.2 FL (7.4-10.4); NEUT# 5.74 X1000 (1.4-6.5); NEUT% 76.8 % (42.2-75.2); PLT 188 X1000 (130-400); RBC 3.67 XMIL (4.7-6.1); RDW 17.5 % (11.5-14.5); WBC 7.48 X1000 (4.8-10.8)
[2018-12-11 00:08] LABS: INR 0.85; PROTIME 12.4 Seconds (11.0-16.0)
[2018-12-11 00:17] LABS: AGAP 10; ALB/GLOB RATIO 1.2; ALBUMIN 3.5 g/dL (3.5-5.0); ALKALINE PHOSPHATASE 80 U/L (32-122); BUN 17 mg/dL (8-22); CHLORIDE 102 mmol/L (98-107); COSMO 291; ESTIMATED GFR > 60; GLUCOSE 111 mg/dL (70-104); GOT 19 U/L (10-34); GPT 24 U/L (10-44); SODIUM 145 mmol/L (136-145); TCO2 33 mmol/L (25-35); TOTAL BILIRUBIN 0.83 mg/dL (0.20-1.00); TOTAL PROTEIN 6.4 g/dL (6.3-8.3)
[2018-12-11 03:04] LABS: URINE SOURCE CATH
[2018-12-11 03:07] LABS: BILIRUBIN URINE NEGATIVE (NEGATIVE); BLOOD URINE MODERATE (NEGATIVE); COLOR YELLOW; GLUCOSE URINE NEGATIVE (NEGATIVE); KETONE URINE NEGATIVE (NEGATIVE); LEUKOCYTES URINE NEGATIVE (NEGATIVE); NITRITE URINE NEGATIVE (NEGATIVE); PROTEIN URINE TRACE mg/dL (NEGATIVE); SP GRAVITY URINE 1.011; TURBIDITY URINE CLEAR (CLEAR); UROBILINOGEN URINE NORMAL (NORMAL)
[2018-12-11 03:08] LABS: UR EPITHELIAL CELLS <10 /HPF (<10); URINE BACTERIA NEGATIVE /HPF; URINE RBC TNTC /HPF (<10); URINE WBC <10 /HPF (<10)
--- NOTE | 2018-12-11 06:44 | Diag Imaging Result Doc PS360 ---
CHEST-PORTABLE - 12/10/2018 INDICATION: Pre-op COMPARISON: 12/09/2018 FINDINGS: There is mild cardiomegaly. No infiltrates or edema. No pneumothorax or significant pleural effusion. IMPRESSION: Mild cardiomegaly but no acute disease. Electronically signed by Manuel Virgen 12/11/2018 6:41 AM
--- NOTE | 2018-12-11 07:25 | EKG Report ---
Test Performed on : 12/11/2018 05:54:47 AM Test Reason : Pre-op Blood Pressure : / mmHG Vent. Rate : 092 BPM Atrial Rate : 092 BPM P-R Int : 166 ms QRS Dur : 132 ms QT Int : 372 ms P-R-T Axes : 046 073 020 degrees QTc Int : 460 ms Normal sinus rhythm. Right bundle branch block Abnormal ECG When compared with ECG of 09-DEC-2018 13:50, (Unconfirmed) Vent. rate has increased BY 35 BPM Confirmed by Birdie NEVILLE, Omid ([id number]) on 12/11/2018 11:43:47 AM
[2018-12-11] MEDS ORDERED: ALDACTONE PO SCH (09:00)
[2018-12-11] MEDS ORDERED: BYSTOLIC PO SCH (09:00)
[2018-12-11] MEDS ORDERED: LASIX IV ONE (09:58)
[2018-12-11] MEDS: CRESTOR PO SCH (10:29)
[2018-12-11] MEDS: LIORESAL PO SCH ×2 (10:30→20:40)
[2018-12-11] MEDS: GLUCOPHAGE PO SCH (10:30)
[2018-12-11] MEDS: NORVASC PO SCH ×2 (10:31→20:40)
[2018-12-11] MEDS: NEURONTIN PO SCH ×3 (10:31→16:34)
[2018-12-11] MEDS: LOVENOX SUBQ SCH (10:33)
[2018-12-11] MEDS: LASIX PO SCH ×3 (10:33→16:33)
[2018-12-11] MEDS: PRILOSEC PO SCH (10:50)
[2018-12-11] MEDS: IMURAN PO SCH ×2 (10:50→16:42)
--- NOTE | 2018-12-11 10:54 | PROGRESS NOTE ---
DATE: 12/11/2018 INDICATION FOR PROLONGED HOSPITALIZATION: Refractory right hip pain with known avascular necrosis and partial collapse, inability to bear weight. The patient is admitted for pain management as well as anticipated right total hip arthroplasty early next week. The patient was admitted last night through the emergency room to the Internal Medicine Service for pain management and orthopedic consultative opinion. Orthopedics is at the bedside this morning. In agreement for probable total hip arthroplasty on Friday of next week, he will be added to the surgery schedule. In the interim, further optimization of patient's chronic medical conditions prior to surgery is anticipated. The patient carries a diagnosis of myasthenia gravis and is at risk for respiratory compromise. He was started on IVIG infusions at his last admission with marked improvement and missed his Hematology appointment this morning for scheduling monthly IVIG. He continues on cholinesterase inhibitors and basal/maintenance steroids. The last time he was admitted, he needed stress dose steroids and responded favorably. He also continues on immunosuppressive therapy, specifically Imuran. We will be seeking the ongoing opinion of Neurology. While hospitalized as an inpatient, patient had a thorough evaluation at the last admission, including Pulmonary and Cardiology. These services may be needed should he clinically decline. VITALS: This morning blood pressure of 106/55, pulse at 87, temperature 97.8 degrees, saturating 93% on Venturi mask. Weight at 244. Intake/output: 474 in and 1000 out for - 526. Outstanding urine and blood cultures are noted. LABORATORY ON ADMISSION: White blood cell count 7.48, H and H at 11.6 and 38.1 with platelets at 188. PT/INR at 12.4 and 0.85. Sodium at 145, potassium 4.0, chloride 102, bicarbonate at 33. BUN and creatinine at 17 and 1.0, glucose at 111. AST and ALT are normal. Urine with evidence of proteinuria, as well as moderate amount of blood. Bacteria is noted to be negative. Culture is pending. IMAGING: Barium swallow performed last visit demonstrating spasm in the distal esophagus and a delay of contrast through the GE junction. Chest x-ray in the emergency room on presentation failing to demonstrate evidence of focal consolidation or mass. PHYSICAL EXAMINATION: HEENT: Unremarkable with the exception of dry mucosal membranes. Neck: Soft and supple. Cardiovascular: Distant heart sounds. Lungs: Poor inspiratory effort without wheezes, rhonchi or rales. Abdomen: Protuberant. Nonspecific tenderness noted in the right lower medial quadrant, but without guarding or rebound. Extremities: With 3+ peripheral edema and chronic stasis changes noted complicated by cellulitis bilaterally about the ankles and distal shank. There is significant bruising of the distal portion of the left foot secondary to recent trauma. Neurologic: Cranial nerves are unremarkable. Patient is noted to have generalized tremulousness. He denies any shortness of breath, and states that his hip continues to hurt. IV medication for pain is provided with relief. IMPRESSION: A 78-year-old gentleman with avascular necrosis of the right hip complicated by historical fall and partial collapse now with refractory pain. Patient having been admitted approximately 4 weeks ago for refractory pain and undergoing evaluation for rule out septic arthritis. Evaluation and cultures were noted to be negative. He now presents for surgical consideration. We will be arranging for surgery anticipated for next week, December 14. In the interim, optimization of pulmonary status and cardiovascular status. We will be asking Neurology for opinion with regards to the initiation of IVIG considering that he is already on baseline steroids and immunosuppressive therapy. Repeat immunoglobulins are being ordered at this time. Despite having a fever to 101.8 last night, he is afebrile right now, and no antibiotics have been initiated pending return of blood and urine cultures. Certainly, if he was to spike another fever, a lower threshold for initiation of broad-spectrum antibiotics would be considered. IV diuretic and ongoing clinical follow up with regards to lower extremity edema is indicated, and we will continue to follow through the weekend in anticipation of surgery for next week. We will be consulting Hematology/Oncology and that the patient was supposed to have an appointment today for scheduling monthly IVIG infusions and he missed that appointment secondary to his admission. Patient and understand the course of treatment and plan. No further issues at this time. Note is dictated on the morning of rounds. cc: DO WILLY Martinez
[2018-12-11] MEDS: PREDNISONE PO SCH (11:36)
--- NOTE | 2018-12-11 12:57 | ORTHOPAEDICS PROGRESS NOTE ---
DATE: 12/11/2018 SUBJECTIVE: Mr. Alcantara was recently admitted to the hospital again for some mild confusion as well as his ongoing hip pain. He has been admitted by Dr. Van. We have discussed possibly doing his hip replacement next Friday since he is in the hospital. I will check back with him Friday to see how he is doing medically. If he is in his best possible medical condition as of Friday, will consider a right hip replacement on Friday of next week. cc: MD Jonathan Del Castillo, DO
--- NOTE | 2018-12-11 15:16 | CONSULTATION ---
DATE OF CONSULTATION: 12/11/2018 HISTORY OF PRESENT ILLNESS: Mr. Alcantara is 78 years old. Consult order for Neurology states "on steroid and Imuran, recommendation for IVIG". Mr. Alcantara has a diagnosis of myasthenia made in recent years. He reports using IVIG in the past and switching to Solaris in recent months. He has tolerated Soliris and believes there has been benefit. He believes his problems with myasthenia are stable. His medicine list includes azathioprine and pyridostigmine. He told me he also takes prednisone but I do not see that on his medicine list. Medicine list is about 20 items and he reports he takes them correctly without supervision and is certain he does not make mistakes. Dr. Cruz is his treating neurologist. Mr. Alcantara told me his main problem now is pain in the legs, worse on the right, mostly around the groin, dull, aching, worse with bearing weight. He feels a little bit weak in the legs, but believes that is not like what he has experienced with myasthenia in the past. He notices some numbness in the feet and that is chronic. He believes that he began to have leg pain about 2 months ago after a fall. PHYSICAL EXAMINATION: On exam, Mr. Alcantara is awake, alert, attentive. He seems appropriate. Speech is not dysarthric or nasal. Language function is intact. I did not test his cognitive function. Head and neck are unremarkable. Visual thrasher are full, tested grossly by confrontational finger counting. He has good lateral eye movement. Upgaze is reasonable for age. There is no ptosis. He has good forced eyelid closure and forehead wrinkling without evidence of fatiguing. Tongue is midline. Gag is intact. Palate is midline. Shoulder shrug is good. He has good power in the arms. Effort was relatively limited in testing the legs. He reports this is due to discomfort. He has good power distally in the legs. Plantar response is silent bilaterally. Reflexes are absent at the ankles. There is a stocking pattern of sensory loss, similar on the left and right, extending nearly to the knee bilaterally. He has good pinprick and light touch appreciation over the palms. I did not test his gait. IMPRESSION: 1. Previous diagnosis of myasthenia gravis. He reports stable recently. His current history does not sound like myasthenic weakness. I do not find any definite fatiguing or other typical myasthenia deficit on bedside exam. I was not able to examine the proximal leg muscle power vigorously due to his limited effort and reported discomfort. He could have proximal leg weakness associated with myasthenia, but that seems relatively unlikely since he reports his problems with myasthenia have been bulbar with facial drooping, eyelid drooping, slurred speech, dysphagia. Limb weakness has not been a prominent feature with his myasthenic syndrome, by his report. 2. Leg pain. This does not seem to be neurologic. Features are not typical of a radiculopathy. 3. Clinical evidence of peripheral neuropathy, presumed diabetic neuropathy. If he is taking prednisone, that could aggravate blood sugar control. 4. Polypharmacy. RECOMMENDATIONS: I do not have any urgent suggestion. His report to me is that problems have been present for a few months, worse in recent weeks, but not acute. If he does not seem improved by Friday, we might consider EMG study to make sure he does not have a diabetic radiculoneuritis syndrome, proximal muscle weakness due to myopathy, significant myasthenic weakness, cholinergic weakness. He does not have any other features of cholinergic excess and specifically denies nausea, stomach cramps, diarrhea. Thanks for asking Neurology to see Mr. Alcantara. cc: MD Jonathan Oliva III, DO CHLOED
[2018-12-11] MEDS: MESTINON PO SCH ×3 (16:31→20:39)
[2018-12-11] MEDS ORDERED: ROCEPHIN 1 GM in NS 50 ML IV ONE (19:04)
[2018-12-11] MEDS ORDERED: VANCOMYCIN 1 GM/NS 1 GM/250 ML IVPB IV ONE (19:06)
[2018-12-11] MEDS: CYMBALTA PO SCH (20:40)
[2018-12-11] MEDS: LIPITOR PO SCH (20:40)
[2018-12-11] MEDS: ASPIRIN PO SCH (20:40)
[2018-12-11] MEDS: FLOMAX PO SCH (20:40)
[2018-12-11] MEDS: CLINIMIX E 4.25%-5% SOLUTION 1,000 ML IV SCH (22:01)
[2018-12-11] MEDS: TYLENOL PO SCH (22:02)
[2018-12-12] MEDS: LASIX PO SCH (06:21)
[2018-12-12] MEDS: PRILOSEC PO SCH (06:21)
[2018-12-12] MEDS: IMURAN PO SCH ×3 (06:21→19:13)
[2018-12-12] MEDS: CLINIMIX E 4.25%-5% SOLUTION 1,000 ML IV SCH ×3 (06:30→19:53)
[2018-12-12 06:51] LABS: EOS# 0.03 X1000 (0.0-0.7); EOS% 0.4 % (0.0-10.0); HEMATOCRIT 32.5 % (42.0-52.0); HEMOGLOBIN 10.3 g/dL (14.0-18.0); IMM GRAN# 0.03 X1000 (0.0-0.04); IMM GRAN% 0.4 % (0.0-0.5); LYMPH% 5.4 % (20.5-51.1); MCHC 31.7 g/dL (33-37); MCV 104.2 FL (81-99); MONO# 0.81 X1000 (0.11-0.59); MPV 10.6 FL (7.4-10.4); NEUT# 6.08 X1000 (1.4-6.5); NEUT% 82.8 % (42.2-75.2); PLT 161 X1000 (130-400); RBC 3.12 XMIL (4.7-6.1); RDW 17.7 % (11.5-14.5); WBC 7.35 X1000 (4.8-10.8)
[2018-12-12 07:14] LABS: AGAP 11; ALKALINE PHOSPHATASE 63 U/L (32-122); BUN 20 mg/dL (8-22); CALCIUM 8.7 mg/dL (8.8-10.2); CHLORIDE 100 mmol/L (98-107); COSMO 294; CREATININE 0.9 mg/dL (0.7-1.2); ESTIMATED GFR > 60; GLUCOSE 144 mg/dL (70-104); GOT 18 U/L (10-34); GPT 18 U/L (10-44); POTASSIUM 4.2 mmol/L (3.5-5.1); SODIUM 145 mmol/L (136-145); TCO2 34 mmol/L (25-35); TOTAL BILIRUBIN 0.98 mg/dL (0.20-1.00)
[2018-12-12] MEDS: DILAUDID IV PRN (07:33)
[2018-12-12] MEDS ORDERED: LASIX IV ONE (10:38)
[2018-12-12] MEDS: CRESTOR PO SCH (10:56)
[2018-12-12] MEDS: GLUCOPHAGE PO SCH (10:57)
[2018-12-12] MEDS: LIORESAL PO SCH ×2 (10:58→21:06)
[2018-12-12] MEDS: NEURONTIN PO SCH ×3 (10:59→19:06)
[2018-12-12] MEDS: MESTINON PO SCH ×4 (10:59→21:07)
[2018-12-12] MEDS: TYLENOL PO SCH ×3 (11:00→19:12)
[2018-12-12] MEDS: LOVENOX SUBQ SCH (11:01)
[2018-12-12] MEDS: PREDNISONE PO SCH (11:01)
--- NOTE | 2018-12-12 11:49 | PROGRESS NOTE ---
DATE: 12/12/2018 HISTORY OF PRESENT ILLNESS: Indication for prolonged hospitalization, refractory right hip pain secondary to avascular necrosis with partial collapse, awaiting surgery for next Friday, now with a positive blood culture of undetermined clinical significance. This may be a true bacteremia versus superficial/cutaneous contaminant. He was started on IV antibiotics yesterday. He has remained afebrile. This morning, he is noted to be slightly hypotensive at 96/59, he is alert oriented without any cognitive issues. The family reports that yesterday afternoon that he was altered. The nursing staff reported that to me in conjunction with the positive blood culture. He seems to be generally improved. His vital signs this morning, temperature 97.5 degrees, pulse rate at 65, blood pressure 96/59, saturating 94% on Venti mask. Intake and output, 1132 in and 2950 for -1818. Cumulatively, he is down approximately 2.3 L during this hospitalization. Additional blood cultures from the left antecubital fossa as well as urine culture are pending at the time of dictation. Gram positive cocci are suggested in the right antecubital and he continues on IV antibiotics which he will transition to alternate, see below. No other complaints or concerns this morning. I did express to the patient my concern that if this represented bacteremia, that this would be an adverse finding and would likely disqualify him from progressing to total hip arthroplasty next Friday. This may further be complicated by need for long-term antibiotics considering that he has a positive blood culture and a previous history of avascular necrosis and refractory hip pain, re-evaluation of the pelvis and comparison to historical study approximately 4 weeks ago is anticipated. There may be a focal source of abscess. PHYSICAL EXAMINATION: HEENT: Unremarkable. Cardiovascular: Distant heart sounds, but regular rate and rhythm. Lungs: With decreased inspiratory effort but without wheezes, rhonchi or rales. Abdomen: Obese with decreased bowel sounds. Nonspecific tenderness without guarding or rebound is noted in the right lower quadrant (another reason for repeating the CT scan within the context of positive blood culture and a fever on admission). Extremities: With persistent 3+ pitting edema, the right lower extremity greater than the left lower extremity. There are chronic venous stasis changes as well complicated by localized cellulitis and superficial ulcerations. This may also be a source of potential infection. Persistence of bruising of the distal left foot secondary to recent trauma. Neurological: Cranial nerves 2-12 appear to be grossly intact. Patient is alert and oriented x3 without any cognitive deficiencies. LABORATORY DATA: For today, white blood cell count 7.35, hemoglobin and hematocrit at 10.3 and 32.5 with platelet count at 161,000. Sodium at 145, potassium 4.2, chloride 100, bicarb at 34, BUN and creatinine at 2 and 0.9. Glucose ranging between 101 and 217. Total protein decreased at 6.0, albumin decreased at 3.5. 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 IMPRESSION AND PLAN: A 78-year-old gentleman with refractory right hip pain secondary to avascular necrosis complicated by historical fall with partial collapse, awaiting total hip arthroplasty. He was admitted 2 days ago for refractory pain and surgical consideration. However, he has now had a positive blood culture which further complicates his preoperative clinical course. He also carries a diagnosis of myasthenia gravis as well as IgG deficiency and is under the care of Neurology as well as Hematology Oncology. We will be consulting with Infectious Disease after transitioning to broad-spectrum antibiotics. We will be transitioning to cefepime and Zyvox and consulting with Infectious Disease doctor tomorrow. I have advised the patient that this might be local superficial/cutaneous contaminant but final ID is pending. Over the course of the next 24 to 48 hours, he should be on adequate coverage based on transitioning to these alternate medications. With regards to lower extremity edema, this is multifactorial. He is on prednisone, he is on Neurontin, he is on Norvasc. He has a known history of chronic venous insufficiency status post ablative procedures historically. Since he hypotensive, we will be holding his antihypertensives including the Norvasc, the Bystolic and the Aldactone and following clinically. An additional dose of IV Lasix is provided as well. Continue to follow for electrolyte disturbances in this regard. We will be proceeding with CT scan of the abdomen and pelvis as discussed at the bedside with the patient and friend of the family. No new and/or additional issues or considerations at this time. The patient understands the course of treatment and plan. cc: Jonathan Van DO
[2018-12-12] MEDS: MAXIPIME 1 GM in NS 50 ML IV SCH ×2 (12:09→22:00)
--- NOTE | 2018-12-12 14:25 | Diag Imaging Result Doc PS360 ---
CT ABDOMEN/PELVIS W/WO CONTRAS - 12/12/2018 INDICATION: Right hip/pelvis with 1 (+) Blood cx COMPARISON: 11/13/2018 FINDINGS: On the noncontrast exam, there are bilateral nonobstructing renal stones, three and the right kidney and two in the left. These measure up to 6 mm. On the contrast-enhanced exam, there is some atelectasis and scarring in the right lung base. No infiltrates. Heart size is normal. There are several benign cysts in the liver and both kidneys. The pancreas, spleen, and adrenals are normal. There is a catheter in the urinary bladder. There are numerous diverticula of the descending and sigmoid colon. No bowel obstruction or inflammation. No free air or abnormal fluid collections. Prostate is atrophic or absent. Urinary bladder and rectum are normal. There is severe vascular disease of the femoral arteries. There are extensive fusion laminectomy changes of the lower lumbar spine. No acute or suspicious bony lesion. There is some chronic remodeling of the right hip with flattening of the superior femoral head. The appearance is compatible with avascular necrosis with collapse.. IMPRESSION: 1. Diverticulosis coli. 2. 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 3. Nonobstructing bilateral renal stones. This exam was performed using automated exposure control, adjustment of mA or kV according to patient size, and/or use of iterative reconstruction technique Electronically signed by Manuel Virgen 12/12/2018 2:22 PM
[2018-12-12] MEDS: ZYVOX 600 MG/D5W 600 MG/300 ML IVPB IV SCH ×2 (14:35→22:00)
[2018-12-12] MEDS ORDERED: ROCEPHIN 1 GM in NS 50 ML IV SCH (19:15)
[2018-12-12] MEDS: ASPIRIN PO SCH (21:05)
[2018-12-12] MEDS: FLOMAX PO SCH (21:06)
[2018-12-12] MEDS: CYMBALTA PO SCH (21:06)
[2018-12-12] MEDS: LIPITOR PO SCH (21:06)
[2018-12-13] MEDS: CLINIMIX E 4.25%-5% SOLUTION 1,000 ML IV SCH ×3 (05:25→20:54)
[2018-12-13] MEDS: PRILOSEC PO SCH (06:35)
[2018-12-13] MEDS: IMURAN PO SCH ×3 (06:35→16:19)
[2018-12-13] MEDS: DILAUDID IV PRN (08:57)
[2018-12-13] MEDS: TYLENOL PO SCH ×3 (09:04→16:19)
[2018-12-13] MEDS: MESTINON PO SCH ×4 (09:05→20:53)
[2018-12-13] MEDS: LIORESAL PO SCH ×2 (09:06→20:53)
[2018-12-13] MEDS: CRESTOR PO SCH (09:06)
[2018-12-13] MEDS: NEURONTIN PO SCH ×3 (09:07→16:19)
[2018-12-13] MEDS: PREDNISONE PO SCH (09:07)
[2018-12-13] MEDS: LOVENOX SUBQ SCH (09:08)
[2018-12-13] MEDS: MAXIPIME 1 GM in NS 50 ML IV SCH (09:08)
--- NOTE | 2018-12-13 10:09 | INFECTIOUS DISEASE PROGRESS NO ---
DATE: 12/13/2018 SUBJECTIVE: Patient has 1/2 blood cultures positive for Enterococcus. I agree with Dr. Van that the blood culture could be a contaminant but I think that it does represent in this situation a pathogen. The patient is having excruciating pain in his right hip. He tells me it has been worse in the last 1 to 4 days and I am concerned that given the positive blood culture that the patient may have septic hip arthritis, even though the last time he was in when we aspirated his hip, nothing grew, but there were gout crystals found. The patient has an immunoglobulin deficiency but he is on a program to get it regularly through Dr. Nascimento and his IgG and IgA values are normal during this hospitalization. RECOMMENDATIONS: I have switched the patient from his current antibiotics to ampicillin 2 g IV every 6 hours. I would suggest doing the following studies: An echocardiogram, another aspiration of the patient's right hip for cell count and culture and finally a colonoscopy to see where the enterococcal bacteremia originates. It does not appear to originate from the urinary tract because the patient's urine culture is negative. The patient did tell me that it was years ago when he had a colonoscopy also. Also, a CT scan has been done of the abdomen and pelvis and it showed diverticulosis and avascular necrosis of the right hip and nonobstructing renal calculi. MEDICATIONS: The patient has been switched now to ampicillin. OBJECTIVE: Vital Signs: Temperature is 99.6 degrees, pulse 74, respirations 20, blood pressure 116/59. General: This is an ill-appearing elderly male. He is in no acute distress except when I passively moved his hip it did cause him to have pain. Head, Eyes, Ears, Nose, and Throat: He can hear my spoken words and see near objects. There is no white coating on his tongue. Neck: No meningismus. Lungs: Clear to auscultation. Cardiovascular: Regular heart rate. Abdomen: Soft and nontender. Bones, joints, muscles: As mentioned above, movement of the patient's right hip causes him to have a lot of pain. Neurologic: Patient is alert. He can move his extremities, but moving the patient's right hip did cause him to have a lot of pain. LABORATORY AND X-RAY: CBC shows a white count of 7350, hemoglobin 10.3 and platelet count is 161,000. Creatinine is 0.9. GFR is greater than 60. Liver function studies are normal. IgG is 735. IgA is 78. Urinalysis was negative for white cells and bacteria; however, it did show red blood cells, 1 out of 2 blood cultures were positive for Enterococcus. Urine culture was negative. CT scan of the abdomen and pelvis showed diverticulosis and avascular necrosis of the hip and nonobstructing renal calculi. Chest x-ray showed cardiomegaly. ASSESSMENT AND PLAN: 1. Patient has what I think is an enterococcal bacteremia and I do not think the blood culture is a contaminant. I have switched the patient to ampicillin. As mentioned above, I would suggest aspirating the patient's hip and also obtaining an echocardiogram to look for the possibility of endocarditis given that the patient has a positive blood culture for Enterococcus. 2. Comorbidities: He is elderly. He is obese. He has myasthenia gravis as well as avascular necrosis of the right hip. He also has diabetes and he also has gout, has evidence of having crystals seen from the patient's hip aspirate done during his last admission to the hospital. cc: MD Jonathan Spencer DO
[2018-12-13] MEDS: AMPICILLIN 2 GM/NS 2 GM/100 ML IVPB IV SCH ×3 (10:30→22:00)
[2018-12-13] MEDS: CYMBALTA PO SCH (20:52)
[2018-12-13] MEDS: ASPIRIN PO SCH (20:52)
[2018-12-13] MEDS: FLOMAX PO SCH (20:52)
[2018-12-13] MEDS: LIPITOR PO SCH (20:53)
--- NOTE | 2018-12-13 21:18 | PROGRESS NOTE ---
DATE: 12/13/2018 INDICATION FOR PROLONGED HOSPITALIZATION: Patient is Enterococcus faecalis D positive on 1 of 2 blood cultures. His urine cultures are negative. I have relayed this information to the patient this morning on rounds and I personally talked to infectious disease with recommendations to follow. Vitals this morning, blood pressure 116/59, temperature at 99.6 degrees, pulse at 74, respirations at 20, saturating 100% on pulse oximetry via Ventimask, T-max 99.6 degrees. Last time the patient had fever greater than 101.8 was on admission on 12/11 at 7:20 a.m. Overnight no significant findings or issues are noted. I's and O's 2307 in and 3727 out for -1.4 L, cumulatively he is down 3.74 L for this hospitalization. LABORATORIES: For 12/13, no significant laboratories are ordered for today. Reports for review including CT scan of the abdomen and pelvis demonstrating some atelectasis in the right lung base without evidence of infiltrates, benign-appearing cysts both in the liver and the kidney, numerous diverticula of the descending colon and sigmoid colon. No evidence of inflammation or obstruction. Urinary bladder and rectum appear to be normal. Severe vascular disease of the femoral arteries bilaterally are noted and extensive fusion via laminectomy changes in the lower spine are noted as well. Persistence of avascular necrosis of the right hip with compatible collapse. Cultures to date including negative urine culture, 1 blood culture at 48 hours is negative, 2nd blood culture at 48 hours is consistent with enterococcus faecalis, sensitivity to ampicillin, sensitivity to vancomycin. PHYSICAL EXAMINATION: HEENT: Unremarkable. Cardiovascular: Regular rate and rhythm without murmurs, gallops, or rubs. Lungs: Clear. Abdomen: Soft and protuberant with decreased bowel sounds. Compression hose of the bilateral lower extremities are noted with some mild interval improvement in lower extremity edema. The right continues to be more edematous than the left at 2+ pitting, persistence of distal ecchymosis of the left foot is noted. Cranial nerves 2-12 appear to be grossly intact. Patient is alert and oriented x3 without any cognitive deficiencies. IMPRESSION: 78-year-old with sepsis as manifested by multiple systemic inflammatory response syndrome criteria (fever 101.8, RR 20+, HR 90+) and now a positive blood culture for enterococcus faecalis now with clinic criteria for sepsis due to bacteremia. Etiology is queried but suspect for bowel etiology versus possible septic right hip. Awaiting final disposition and recommendations from Infectious Disease. Lower extremity edema again is multifactorial; he has several medications which can be contributing towards lower extremity edema including but not limited to multiple medications as well as known history of chronic venous hypertension. His last cardiac echocardiogram is noted to be 2016, a repeat cardiac echocardiogram is being considered. PA pressures at that time were noted to be 26 to 31 mmHg and ejection fraction estimated at 55 to 60 percent. Will await final recommendations from infectious disease. I suspect that he will not be a candidate for total hip arthroplasty on Friday. I did briefly discussed with Infectious Disease the possibility of obtaining followup blood cultures versus long-term peripheral access with a peripherally inserted central catheter line should he need prolonged intravenous antibiotics. Initial and preliminary recommendations from Infectious Disease will likely include repeating cardiac echocardiogram as well as repeating right hip CT guided arthrocentesis for culture. In the interim we continue to follow clinically. We are currently holding the multiple antihypertensives secondary to hypotension yesterday. His blood pressure is interval improved up from 96/59 to 143/59, we continue to follow clinically in this regard. The patient understands the course of treatment and plan. Note is dictated on the evening of 12/13/2018. Rounds were performed earlier this morning. cc: DO WILLY Martinez
[2018-12-14] MEDS: DILAUDID IV PRN ×2 (03:58→10:38)
[2018-12-14] MEDS: AMPICILLIN 2 GM/NS 2 GM/100 ML IVPB IV SCH ×4 (03:59→23:00)
[2018-12-14] MEDS: PRILOSEC PO SCH (06:15)
[2018-12-14] MEDS: IMURAN PO SCH ×3 (06:15→18:23)
[2018-12-14] MEDS: MESTINON PO SCH ×4 (08:35→20:54)
[2018-12-14] MEDS: LOVENOX SUBQ SCH ×2 (08:36→13:20)
[2018-12-14] MEDS: TYLENOL PO SCH ×3 (08:36→18:23)
[2018-12-14] MEDS: PREDNISONE PO SCH (08:36)
[2018-12-14] MEDS: LIORESAL PO SCH ×2 (08:36→20:54)
[2018-12-14] MEDS: NEURONTIN PO SCH ×3 (08:36→18:23)
[2018-12-14] MEDS: CRESTOR PO SCH (09:00)
[2018-12-14] MEDS ORDERED: AYR NASAL SPRAY NAS PRN (10:50)
[2018-12-14] MEDS: CLINIMIX E 4.25%-5% SOLUTION 1,000 ML IV SCH ×2 (11:08→18:41)
[2018-12-14] MEDS: GAMUNEX-C 10% IV ONE ×2 (15:32→20:41)
--- NOTE | 2018-12-14 16:05 | INFECTIOUS DISEASE PROGRESS NO ---
DATE: 12/14/2018 PRESENT ILLNESS: The patient has an enterococcal bacteremia, and I think there is a good possibility that the infection has invaded the right hip to cause septic arthritis. MEDICATIONS: The patient is on ampicillin 2 g IV every 6 hours. PHYSICAL EXAMINATION: Vital Signs: Temperature is 98 degrees, pulse 80, respirations 20, blood pressure is 125/65. General: This is an ill-appearing elderly male. He is in no acute distress. Head, Eyes, Ears, Nose, and Throat: He can hear my spoken words and see near objects. He does not have any white patches on his tongue. Neck: He is not having any pain when his head is moved. Lungs: Clear to auscultation. Cardiovascular: Regular heart rate. Abdomen: Soft and nontender. Bones, Joints, Muscles: Any movement of the patient's right hip causes him to have pain. Neurologic: Patient is alert. He can move his extremities. There is no tremor. DIAGNOSTIC STUDIES: There is no new lab or radiographic study for today. ASSESSMENT AND PLAN: I have ordered blood cultures for tomorrow to see if the patient's bacteremia is clearing. I have also ordered for the patient to have his right hip aspirated and for the aspirate fluid to be sent to the lab for the following tests: Gram stain, C & S, body fluid analysis including cell count and test for crystals, and culture of the fluid. Already today, Dr. Van has ordered an echocardiogram for the patient, with which I agree. I will be planning on treating the patient for at least 2 weeks with IV ampicillin with day 1 being the first day that the repeat blood cultures are sterile, and if the patient has infection in his right hip with Enterococcus, then he will require at least a 6-week course of treatment. PATIENT'S COMORBIDITIES: 1. He is elderly. 2. He has myasthenia gravis. 3. Avascular necrosis of the right hip. 4. He has diabetes. 5. He also has gout. cc: MD Jonathan Spencer, DO AGUILERA
--- NOTE | 2018-12-14 16:40 | Diag Imaging Result Doc PS360 ---
EXAM: US GUIDE,BIOPSY 12/14/2018 HISTORY: US guided aspiration of R hip TECHNIQUE: Ultrasound-guided aspiration of right hip. COMMENT: The risks and benefits of the procedure including the possibility of bleeding infection or reaction to lidocaine was discussed with the patient and he agreed to the procedure. Following sterile preparation of the skin anteriorly and administration 1% lidocaine to the skin and deeper soft tissues, a 20-gauge spinal needle was advanced into the anterior hip joint space and subsequently 3 mL of thick, turbid, pinkish-orange fluid was aspirated. This was sent to the laboratory. There are no immediate complications. IMPRESSION: Successful right hip aspiration. Electronically signed by Baltazar Barker 12/14/2018 4:38 PM
--- NOTE | 2018-12-14 17:58 | ORTHOPAEDICS CONSULTATION ---
DATE: 12/14/2018 HISTORY OF PRESENT ILLNESS: This is a 78-year-old male who was admitted to the hospital with right hip pain and avascular necrosis of the hip. Orthopedics was consulted to come see the patient. He has recently been on the schedule to obtain a total hip arthroplasty, but has not been a good surgical candidate recently due to infection. He underwent an aspiration of the right hip today, which showed thick turbid pink discharge fluid and this has been sent to the lab without results. PAST MEDICAL HISTORY: 1. Multinodular goiter. 2. Myasthenia gravis. 3. Iron deficiency anemia. 4. BPH. 5. DVT. 6. Peripheral vascular disease. 7. Chronic pain syndrome. 8. Diabetes. 9. Hypertension. 10. Lower extremity edema due to multiple factors. MEDICATIONS: 1. Percocet 10 mg q. 6 to 8 p.r.n. pain. 2. Aspirin 325 daily. 3. Neurontin 400 mg t.i.d. 4. Mestinon 60 mg q.6. 5. Vitamin D supplement daily. 6. Baclofen 10 mg b.i.d. 7. Metformin 1000 mg daily. 8. Prevacid 30 mg daily. 9. Cymbalta 30 mg daily. 10. Imuran 50 mg daily. 11. Amlodipine 25 mg b.i.d. 12. Bystolic 10 mg daily. 13. Icar C 1 tab daily. 14. B12 supplement. 15. Alaris 10 mg/mL, 900 mg every 2 weeks. 16. Lipitor 20 mg daily. 17. Lasix 40 mg daily. 18. Aldactone 12.5 mg daily. PAST SURGICAL HISTORY: He has had a laminectomy with fusion, cervical fusion x2, cholecystectomy, knee surgery, lung biopsy and prostate biopsy that were normal, TURP, carpal tunnel release, neck surgery, lithotripsy, epidural injections, cystoscopy, and ablation of the lower extremity. He has also had central line placement in the past due to poor peripheral access. PHYSICAL EXAMINATION: General: Patient is awake, alert, sitting in the bed. HEENT: Head is atraumatic, normocephalic. Eyes equal, round, reactive. Neck: Supple. Chest: Equal chest expansion rise and fall. Abdomen: Soft, nontender. Right lower extremity: There is moderate to severe tenderness to the anterior portion of the hip. There is decreased range of motion due to pain. There is mild swelling to the hip. No redness or signs of infection. There is good capillary refill. There is good pedal pulses. There is negative Homans sign at this time. LABORATORY DATA: White blood cells 7.35, red blood cells 3.12, hemoglobin 10.3, hematocrit 32.5, platelets 161,000. INR 0.85. Sodium 145, potassium 4.2, chloride 100, BUN 20, creatinine 0.9, glucose 144. ProBNP is 1038. The urine shows trace protein and moderate blood. CT of the pelvis shows chronic avascular necrosis of the right hip with some collapse. ASSESSMENT: Degenerative joint disease right hip with possible septic joint. PLAN: We cannot plan a total hip replacement at this time due to the possibility of infection in the joint. We will need to rule out endocarditis and review the aspiration of the joint per Infectious Disease. Infectious Disease will obtain blood cultures tomorrow and we will review those to see if they are getting better. If he is to require a washout of his hip joint, we may do that tomorrow. We will keep an eye on him while he is in the hospital at this time. We will check back on him in the morning. Dictated by MICHAEL Lobato for Jan Mackay MD cc: MICHAEL Lobato MD Jeffrey A. Johnson, DO
[2018-12-14 18:35] LABS: ALLEN TEST YES; BE 8.8 mmoll (-3.0-3.0); BLOOD TYPE ARTERIAL; METHB 0.9 % (0.0-1.5); O2(CT) 12.2 mL/dL (15.0-23.0); PCO2(98.6) 49 mmHg (35-45); SAMPLE BLOOD; SAO2 78.7 % (95.0-100.0); THB 11.3 g/dL (11.5-17.4); pH(98.6) 7.45 (7.35-7.45)
[2018-12-14 18:36] LABS: HCO3-(ACT) 31.3 mmoll (20.0-26.0); MODALITY CANNULA; O2HB 76.7 % (95.0-99.0); PO2(98.6) 43 mmHg (60-100)
[2018-12-14] MEDS ORDERED: NS 500 ML IV SCH (20:30)
--- NOTE | 2018-12-14 20:37 | PROGRESS NOTE ---
DATE: 12/14/2018 INDICATION FOR PROLONGED HOSPITALIZATION: Gram-positive cocci with Enterococcus faecalis bacteremia, 1 culture positive, #2 culture negative, urine culture negative at this time. Infectious Disease recommending ongoing treatment with ampicillin 2 g IV q.6 hours and has suggested that this systemic infection may be originating from a septic right hip. Patient underwent ultrasound-guided aspiration of the right hip today. 3 mL of thick turbid fluid was aspirated. I do not see any preliminary fluid culture reports at this time. Orthopedics have also been by to evaluate for possible joint lavage tomorrow. This evening at the bedside, the patient appears to be somewhat obtunded and lethargic. He is saturating 93% on 6 L of nasal cannula. Based on altered mental status, an ABG is obtained demonstrating a pH of 745, a pO2 at 43, a pCO2 of 49, saturating 78.7%. I suspect that hypoxia is likely mediating his altered state. We will be transitioning him back to Ventimask and that I think that he is probably desaturating secondary to mouth breathing. Ins and outs are reviewed, 1534 in and 3200 out for -1666. Cumulatively during this hospitalization, he is down about 5.245 L. There are no laboratories for review today. Sugars have been running between 111 and 217 since admission. OBJECTIVE: General: Patient appears to be somewhat lethargic and difficult to follow conversation. HEENT: Grossly unremarkable. Cardiovascular: With distant heart sounds. Systolic murmur is noted at the right upper sternal border. Lungs: With decreased respiratory/breath sounds throughout. No wheezing, rhonchi or rales. Abdomen: Continues to be protuberant with hypoactive bowel sounds. No focal areas of tenderness. Extremities: Markedly improved with loose and wrinkling skin consistent with a significant amount of diuresis. Stasis ulcers of the lower extremity appear to be healing. Mild erythema about the right lateral ankle is noted. Some trace pretibial edema is persistent, but the dorsal pedal edema and ankle edema appears to be significantly improved. Neurological: Cranial nerves are not assessed. Patient is arousable but quickly drifts back into snoring. Vitals at the time of evaluation: Temperature 97.9 degrees, pulse at 81, respirations at 18, blood pressure at 152/34. IMPRESSION: 1. A 78-year-old male status post admission for intractable right hip pain, sepsis by clinical criteria including presence of multiple systemic inflammatory response syndrome criteria and the presence of gram-positive bacteremia, the right hip thought as a potential source also potential within the bowel. I have contacted the GI specialist this evening for a definitive opinion and recommendation. He will be seen in the morning with regards to potential colonoscopy for Friday. 2. Cardiovascular: Patient having had cardiac echo today to rule out the presence of infectious endocarditis as potential source for gram-positive bacteremia. Cardiac echo is pending at the time of dictation. From a pulmonary standpoint, patient at risk for aspiration secondary to underlying myasthenia gravis. He continues with negative inspiratory force at -60 per RT notation. An ABG obtained suggesting poor ventilatory status secondary to saturation at less than 80% and PaO2 at 43. We will be transitioning him off of nasal cannula to Ventimask and repeating the ABG in the next 3 hours. A chest x-ray will be ordered with interval comparison. He has received 1 chest x-ray upon admission. No significant findings were noted at that time. 3. Infectious disease: Multiple potential sources for gram-positive bacteremia including a potential septic right hip status post joint arthrocentesis with culture pending. Pulmonary source possible, cardiac source possible and certainly bowel source as a possibility. We will continue to follow clinically at this time. He continues on ampicillin 2 g IV q.6 per infectious disease. 4. Hematology/oncology. 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 Recent IgG levels are within normal limits. Anemia not otherwise specified. A repeat CBC is anticipated for tomorrow. 5. Neurologic/altered mental status with increasing drowsiness. Patient is able to be roused. This certainly has had an adverse effect on his ventilatory status secondary to abnormal ABG as mentioned above. Patient will be using his home CPAP tonight in that he is intolerant of the BiPAP, which has been provided by the hospital at the bedside. DISPOSITION: Patient's last colonoscopy noted to be 2015. He has not been offered any additional colonoscopy secondary to age, over the age of 77. I do think that with the anemia, nonspecific abdominal pain and gram-positive bacteremia, ruling out the bowel as a potential source is reasonable. We will await cultures of joint aspirate, continue IV antibiotics and supportive pulmonary care. If the culture from the hip is positive, then joint lavage would be indicated, and I will defer to Orthopedics in this regard. The patient and understand the course of treatment and plan. No further issues at this time. Note is dictated on the evening of rounds. cc: Jonathan Van, DO AGUILERA
--- NOTE | 2018-12-14 20:42 | Diag Imaging Result Doc PS360 ---
EXAM: CHEST-PORTABLE 12/14/2018 HISTORY: Hypoxia and AMS TECHNIQUE: AP portable at 2032 COMMENT: There is cardiomegaly. There is increased pulmonary vascularity. The inspiration is less optimal than on 12/10/2018. There may be some subsegmental atelectasis in the right base. IMPRESSION: Cardiomegaly. Minimal atelectasis. Electronically signed by Baltazar Barker 12/14/2018 8:39 PM
[2018-12-14 20:52] LABS: ALLEN TEST YES; BE 9.6 mmoll (-3.0-3.0); BLOOD TYPE ARTERIAL; HCO3-(ACT) 32.4 mmoll (20.0-26.0); METHB 0.8 % (0.0-1.5); O2(CT) 13.1 mL/dL (15.0-23.0); O2HB 95.9 % (95.0-99.0); PO2(98.6) 95 mmHg (60-100); SAMPLE BLOOD; SAO2 98.2 % (95.0-100.0); THB 9.6 g/dL (11.5-17.4)
[2018-12-14 20:53] LABS: BODY FLUID SOURCE SYNOVIAL FLUID; MONOS 2 %; POLYS 98 %; WBC BF 24100 /cumm
[2018-12-14 20:54] LABS: MODALITY VENTIMASK; PCO2(98.6) 58 mmHg (35-45)
[2018-12-14] MEDS: LIPITOR PO SCH (20:54)
[2018-12-14] MEDS: ASPIRIN PO SCH (20:54)
[2018-12-14] MEDS: FLOMAX PO SCH (20:54)
[2018-12-14] MEDS: CYMBALTA PO SCH (20:54)
[2018-12-15] MEDS: CLINIMIX E 4.25%-5% SOLUTION 1,000 ML IV SCH ×2 (03:34→13:43)
[2018-12-15] MEDS: AMPICILLIN 2 GM/NS 2 GM/100 ML IVPB IV SCH ×4 (04:09→22:50)
[2018-12-15] MEDS: TYLENOL PO SCH ×4 (05:23→17:04)
[2018-12-15] MEDS: PRILOSEC PO SCH ×3 (05:23→20:55)
[2018-12-15 06:28] LABS: INR 0.96; PROTIME 13.6 Seconds (11.0-16.0)
[2018-12-15 06:35] LABS: EOS# 0.04 X1000 (0.0-0.7); EOS% 0.8 % (0.0-10.0); HEMATOCRIT 30.3 % (42.0-52.0); IMM GRAN# 0.02 X1000 (0.0-0.04); IMM GRAN% 0.4 % (0.0-0.5); LYMPH# 0.38 X1000 (1.2-3.4); MCH 31.5 PG (27-31); MCHC 29.7 g/dL (33-37); MCV 105.9 FL (81-99); MONO# 0.45 X1000 (0.11-0.59); MONO% 9.5 % (1.7-9.3); MPV 10.1 FL (7.4-10.4); NEUT# 3.87 X1000 (1.4-6.5); NEUT% 81.3 % (42.2-75.2); PLT 181 X1000 (130-400); RBC 2.86 XMIL (4.7-6.1); WBC 4.76 X1000 (4.8-10.8)
[2018-12-15 07:16] LABS: AGAP 1; ALB/GLOB RATIO 0.6; ALBUMIN 2.4 g/dL (3.5-5.0); ALKALINE PHOSPHATASE 49 U/L (32-122); BUN 24 mg/dL (8-22); CALCIUM 8.4 mg/dL (8.8-10.2); CHLORIDE 102 mmol/L (98-107); COSMO 280; CREATININE 0.6 mg/dL (0.7-1.2); ESTIMATED GFR > 60; GLUCOSE 105 mg/dL (70-104); GOT 19 U/L (10-34); GPT 19 U/L (10-44); MAGNESIUM 2.2 mg/dL (1.5-2.7); PHOSPHORUS 2.9 mg/dL (2.7-4.5); POTASSIUM 3.9 mmol/L (3.5-5.1); SODIUM 138 mmol/L (136-145); TCO2 35 mmol/L (25-35); TOTAL BILIRUBIN 0.48 mg/dL (0.20-1.00); TOTAL PROTEIN 6.3 g/dL (6.3-8.3)
--- NOTE | 2018-12-15 07:37 | EKG Report ---
Test Performed on : 12/15/2018 07:18:09 AM Test Reason : Pre=op Blood Pressure : / mmHG Vent. Rate : 083 BPM Atrial Rate : 083 BPM P-R Int : 160 ms QRS Dur : 130 ms QT Int : 400 ms P-R-T Axes : 057 077 027 degrees QTc Int : 470 ms Normal sinus rhythm. Right bundle branch block Abnormal ECG When compared with ECG of 11-DEC-2018 05:54, No significant change was found Confirmed by Birdie NEVILLE, Omid ([id number]) on 12/15/2018 9:08:19 AM
[2018-12-15] MEDS: IMURAN PO SCH ×4 (09:31→15:31)
[2018-12-15] MEDS: BYSTOLIC PO SCH (09:32)
[2018-12-15] MEDS: CRESTOR PO SCH (09:32)
[2018-12-15] MEDS: LIORESAL PO SCH ×2 (09:32→20:55)
[2018-12-15] MEDS: PREDNISONE PO SCH (09:32)
[2018-12-15] MEDS: GLUCOPHAGE PO SCH (09:32)
[2018-12-15] MEDS: LOVENOX SUBQ SCH (09:34)
[2018-12-15] MEDS: MESTINON PO SCH ×4 (09:34→20:54)
[2018-12-15] MEDS: MORPHINE IV PRN (10:02)
[2018-12-15] MEDS ORDERED: GOLYTELY PO ONE (14:00)
--- NOTE | 2018-12-15 18:09 | GASTROENTEROLOGY CONSULTATION ---
DATE: 12/15/2018 REASON FOR CONSULTATION: Bacterial infection, rule out GI cause. HISTORY OF PRESENT ILLNESS: This is a 78-year-old white male, who is known to our practice. He had actually recently been in our office on 12/03/2018 for some upper GI symptoms. The patient had stated he had not been feeling lately, he had recently been in the hospital, and was treated for pneumonia. He was also reporting problems with his myasthenia gravis and was reporting getting choked and dysphagia. During his hospitalization, he had had a modified barium swallow that showed spasms involving the distal esophagus and delayed passage of contrast through the GE junction. He states he did report getting choked at times. At the time of our office visit, we had advised him to follow strict antireflux measures and continue his PPI daily, follow the chin tuck method in for swallowing. Since that office visit, he had apparent workup to prepare for possible right hip replacement and had been following with Dr. Mackay. Apparently he has had some issues with chronic infection. He was admitted for intractable right side hip pain secondary to avascular necrosis. He was admitted to the hospital on 12/10/2018. He had drainage of his hip. He had a blood culture that showed Enterococcus faecalis. He is currently being followed by Dr. Driscoll with Infectious Disease. He had a urine culture that showed no growth. Gram stain of his hip showed no bacteria seen. Further blood cultures are pending. Today, patient was awake and alert. His family was at the bedside. He had an O2 Ventimask in place. He has reported some loose stools off and on. I believe his last colonoscopy was in 2013. No reported blood in the stool or black stools. Nurse check reported a dark brown stool today. 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 PAST SURGICAL HISTORY: Laminectomy, nephrostomy tube, carpal tunnel surgery, colonoscopy in 2013, EGD 2015, cholecystectomy 2008, history of knee replacement, lithotripsy, neck surgery. ALLERGIES: Dilaudid causing altered mental status. Victoza causing nausea and vomiting. HOME MEDICATIONS: Amlodipine 2.5 mg twice a day, aspirin 325 mg every night, Lipitor 20 mg every night, Imuran 50 mg daily, baclofen 10 mg twice a day, cefuroxime 200 mg twice a day, vitamin D 1000 units daily, vitamin B12 of 1000 mcg IM as directed, doxycycline 1 tablet twice a day, Cymbalta 30 mg every night, Soliris 30 mL IV as directed, Lasix 40 mg daily, Neurontin 400 mg 3 times a day, vitamin C with iron daily, Prevacid 30 mg every morning, Glucophage 2 every day, Bystolic 10 mg daily, Percocet 10/325 three times a day, Mestinon 960 mg 4 times a day, Aldactone 12.5 mg daily. REVIEW OF SYSTEMS: Per History of Present Illness. PHYSICAL EXAMINATION: Vital Signs: Temperature 97.6 degrees, pulse 73, respirations 22, blood pressure 141/67. Generally, patient is awake and alert. He is able to help with some information, and his family is at the bedside. HEENT: Normocephalic. Respiratory: Lung sounds essentially clear, decreased breath sounds. Abdomen: Nontender. Positive bowel sounds. Extremities: With bilateral lower extremity edema noted, but family states that has improved. He has bruising on his left foot. He states it is from his walker. DIAGNOSTIC RESULTS: Laboratory: Hematology: WBC 4.76, hemoglobin 9.0, hematocrit 30.3, MCV 105.9, platelet 181,000. Chemistry: Sodium 138, potassium 3.9, chloride 102, CO2 of 35, BUN 24, creatinine 0.6, glucose 105, calcium 8.4, phosphorus 2.9, magnesium 2.2, total bilirubin 0.48, AST 19, ALT 19, alkaline phosphatase 49. Microbiology: Blood culture showing Enterococcus faecalis, group B. 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 ASSESSMENT AND PLAN: 1. Avascular necrosis with right hip pain. Following with Orthopedics. The patient had plans to have a hip replacement, but that is unable to be done at this time due to his active infection. 2. History of multiple infections, recent pneumonia, now with bacteremia. Dr. Driscoll with Infectious Disease is following. Gastroenterology was asked to see patient to rule out gastrointestinal causes of bacterial infection. We will proceed with a colonoscopy for further evaluation. I have discussed the case with the family on options of proceeding with colonoscopy, and they wish to proceed. Hopefully he will be able to drink the colon prep. We will plan for colonoscopy on Friday. Further plans to be made according to findings. Thank you for this consultation. I have discussed this case with Dr. Falk. Dictated by MICHAEL Bustamante for Corby Falk MD cc: MICHAEL Hawley MD Jeffrey A. Johnson, DO MTDD
--- NOTE | 2018-12-15 18:09 | INFECTIOUS DISEASE PROGRESS NO ---
DATE: 12/15/2018 PRESENT ILLNESS: The patient has an enterococcal bacteremia. While the patient is bacteremic, it may have hematogenously involved the metal that the patient has on his spine and/or the prosthetic knee that the patient has in place. Also as mentioned yesterday, I am concerned that he may have infection in the right hip as well. MEDICATIONS: The patient is on ampicillin 2 g IV every 6 hours. Day 1 of treatment will be the first day that the repeat blood cultures are negative. PHYSICAL EXAMINATION: Vital Signs: Temperature is 97.5 degrees, pulse 76, respirations are 24, blood pressure is 124/69. General: This is an ill-appearing elderly male. He is in no acute distress. Head/eyes/ears/nose/throat: He can hear my spoken words and see near objects. He does not have any white coating on his tongue. He does not have any perioral ulcers. Neck: He is not having any pain when he moves his head. Lungs: Clear to auscultation. Cardiovascular: Regular heart rate. Abdomen: Soft and nontender. Bones, joints, muscles: The patient's knees are not swollen and when I bend them, it is not painful. Neurologic: The patient is alert. He can move his extremities. There is no tremor. LAB AND X-RAY STUDIES: Chest x-ray shows no infiltrate. CBC shows a white count of 4760 hemoglobin 9, platelet count 181,000. Creatinine is 0.6. GFR is greater than 60. A culture from the patient's hip is pending. Gram stain from the hip shows no organisms. White blood cell count from the hip aspirate is 24,100. Immunoglobulin levels and specifically IgG and IgA are normal. ASSESSMENT AND PLAN: The patient has enterococcal bacteremia which may have hematogenously infected the patient's metal that he has on his spine and/or his prosthetic knee joint. My plan will be to treat with IV ampicillin for 6 weeks with day 1 being the first day that the repeat blood cultures are sterile. As regarding the patient's possible septic hip arthritis if the culture is negative and the white blood cell count was not high, then most likely there is not infection in there and surgery could be continued. The hip aspirate did not show that there were any crystals suggestive of gout being present. Therefore, it does not appear the patient has gout causing his hip pain and the hip leukocytosis. The patient has an echocardiogram pending which will tell us if there is a possibility of endocarditis. Also patient will have a colonoscopy to see if there is some lesion from which the enterococcal bacteremia came from. COMORBIDITIES: He is elderly. He has myasthenia gravis. He has avascular necrosis of the right hip. He is a diabetic. cc: MD Jonathan Spencer, DO
--- NOTE | 2018-12-15 19:33 | PROGRESS NOTE ---
DATE: 12/15/2018 INDICATION FOR PROLONGED HOSPITALIZATION: Awaiting follow-up blood culture for Enterococcus bacteremia, currently undergoing a prep for colonoscopy on 12/16/2018, hypoxia/desaturation complicated by altered mental status, improved with supplemental oxygen via Ventimask, ongoing orthopedic consultation, ongoing GI consultation, and ongoing infectious disease consultation SUBJECTIVE: Over the past 24 hours the patient has been re-evaluated by GI and will be undergoing a colonoscopy tomorrow for ongoing anemia, nonspecific, and historical abdominal pain, heme- positive stools and Enterococcus bacteremia. The patient is also noted to have knee prosthesis and lumbar spine hardware, putting him at long-term risk for secondary seeding of these prostheses. Infectious Disease has recommended a minimum of 6 weeks of IV ampicillin pending return and final disposition of followup cultures. A PICC line will be placed once his bacteremia has been cleared. I did discuss with the family tonight the possibility of long-term IV infusion over the course of the next 6 weeks. He underwent a joint aspirate which was not consistent with septic arthritis of the right hip. We continue to follow clinically in this regard. OBJECTIVE: Most Recent Set of Vitals: Blood pressure 141/67, respirations at 20, temperature at 97.6 degrees, saturating 99% on 15 L of Venturi mask. I's and O's: 63449 in and 3200 out, for - 1.66 L. Over the past 24 hours, 2426 in and 1200 out for +1.2 L. Cumulatively he is -4 0.6 L down. HEENT: Unremarkable. Cardiovascular: Regular rate and rhythm with distant heart sounds. Lungs: With decreased respiratory effort but without wheezes rhonchi or rales. Abdomen: Protuberant with hypoactive bowel sounds. Extremities: Markedly improved with decreased peripheral edema, persistence of superficial and healing stasis ulcers with dark areas of eschar. Unna boots are in place. Persistence of ecchymosis of the distal left foot. Neurologic: Cranial nerves II-XII are grossly intact. Patient is alert oriented x3 without any cognitive deficiencies. LABORATORY DATA FROM TODAY: Hemoglobin and hematocrit 9.0 and 30.3. These are trending downward from admission, 11 and 38. White blood cell count at 4.76, platelets at 181. PT/INR at 13.6 and 0.96. Sodium 138, potassium 3.9, chloride 102, bicarb 35, BUN and creatinine 24 and 0.6. Sugar between 105 and 165. Calcium 8.4, phosphorus normal at 2.9, magnesium normal at 2.9. AST and ALT at 19 and 19 respectively. Albumin down from 3.5 on admission to 2.4. A prealbumin will be ordered. Synovial aspirate: White blood cells at 24,100, no crystals, and negative Gram stain. No bacteria seen. DIAGNOSTIC DATA: EKG obtained this morning demonstrated a normal sinus rhythm with a normal axis. Nonspecific ST and T-wave changes inferiorly in 3 and aVF. Presence of right bundle branch block is seen in the V1, V2 and V3. Nonspecific ST-segment depression is suggested in V3. EKG is reviewed on admission. ST-segment morphology is different in V3. This may be secondary to lead malplacement between V2 and V3. Clinical correlation is recommended. We will continue to follow clinically in this regard. IMPRESSION: A 78-year-old gentleman with avascular necrosis of the right hip complicated by partial collapse, further complicated by gram-positive bacteremia, specifically Enterococcus. Etiology and source is queried. Cardiac echo is pending to rule out the presence of endocarditis, either valvular or otherwise, as potential source. The patient is status post joint aspirate without evidence of septic joint at this time and is undergoing a bowel prep for endoscopy tomorrow. I have spoken with Dr. Driscoll of Infectious Disease. Once his bacteremia is cleared, then patient will be a candidate for a PICC line placement and then 6 weeks of IV ampicillin. I did discuss with the patient and tonight inability to provide this service over this period of time at home, and a long-term facility which specializes in IV infusion will be needed. I will be consulting with social staff worker in this regard. There are no new and/or additional issues at this time. Patient and understand the course of treatment and plan. We continue to follow clinically in this regard. Note is dictated on the evening of rounds. cc: Jonathan Van DO
[2018-12-15] MEDS: FLOMAX PO SCH (20:55)
[2018-12-15] MEDS: CYMBALTA PO SCH (20:55)
[2018-12-15] MEDS: LIPITOR PO SCH (20:55)
[2018-12-15] MEDS: ASPIRIN PO SCH (23:02)
--- NOTE | 2018-12-15 23:18 | ECHO REPORT ---
ORDER DATE: 12/14/2018 SUMMARY: 1. A very difficult study for interpretation due to very limited acoustic window quality. 2. Aortic valve without evidence of structural abnormality. Aortic valve appears to open adequately on 2-dimensional images. Doppler of aortic valve is suboptimal. Mitral and tricuspid valves are without gross structural abnormality. Pulmonic valve is not seen. The aortic root is grossly normal in size. 3. Grossly normal left ventricular dimensions suggested. Estimated left ejection fraction appears to be at least 60%. No obvious wall motion abnormality can be appreciated. Left atrium, right atrium, right ventricle are grossly normal in size. 4. No pericardial effusion. 5. Inferior vena cava not well demonstrated. CONCLUSIONS: 1. Very difficult study for interpretation due to very limited acoustic window quality. 2. No obvious valvular abnormality evident. 3. Normal left ventricular ejection fraction without obvious wall motion abnormality. 4. If clinically indicated, consider echocardiography with echo contrast agent or transesophageal echocardiography. cc: MD Jonathan Cordoba,
[2018-12-16] MEDS: MORPHINE IV PRN ×2 (00:21→21:36)
[2018-12-16] MEDS: CLINIMIX E 4.25%-5% SOLUTION 1,000 ML IV SCH ×3 (00:22→20:48)
[2018-12-16] MEDS: ZOFRAN IV PRN (04:12)
[2018-12-16] MEDS: AMPICILLIN 2 GM/NS 2 GM/100 ML IVPB IV SCH ×4 (04:17→21:40)
[2018-12-16 06:23] LABS: BASO# 0.01 X1000 (0.0-0.2); BASO% 0.2 % (0.0-0.8); EOS# 0.04 X1000 (0.0-0.7); EOS% 0.6 % (0.0-10.0); HEMATOCRIT 25.1 % (42.0-52.0); HEMOGLOBIN 7.4 g/dL (14.0-18.0); IMM GRAN# 0.02 X1000 (0.0-0.04); IMM GRAN% 0.3 % (0.0-0.5); LYMPH# 0.43 X1000 (1.2-3.4); LYMPH% 6.9 % (20.5-51.1); MCH 31.4 PG (27-31); MCHC 29.5 g/dL (33-37); MCV 106.4 FL (81-99); MONO# 0.52 X1000 (0.11-0.59); MONO% 8.4 % (1.7-9.3); MPV 9.6 FL (7.4-10.4); NEUT# 5.19 X1000 (1.4-6.5); NEUT% 83.6 % (42.2-75.2); PLT 192 X1000 (130-400); RBC 2.36 XMIL (4.7-6.1); WBC 6.21 X1000 (4.8-10.8)
--- NOTE | 2018-12-16 07:30 | PROGRESS NOTE ---
DATE: 12/16/2018 INDICATION FOR PROLONGED HOSPITALIZATION: GI bleeding as manifested by hematochezia and falling hemoglobin and hematocrit. Admission hemoglobin and hematocrit at 11.6 and 38.1, and now 7.4 and 25.1. The patient is in the process of being prepped for a colonoscopy. I have personally spoken to GI this morning, who is in agreement that an EGD would be indicated for evidence of active and historical bleeding. During the colonoscopy prep process he is anticipated for a colonoscopy earlier this afternoon. We will go ahead and type and cross for 2 units of packed red blood cells and provide those as transfusion. During the morning hours, his vitals showed blood pressure 136/62, respirations at 16, saturating 99% on Venturi mask. Temperature 97.6 degrees. Pulse at 81. Is and Os are 3393 in and 2500 out, for +893. Cumulatively during his hospitalization he is negative 3.3 1 L. Laboratory for this morning shows a white blood cell count of 6.21, hemoglobin and hematocrit of 7.4 and 25.1, with platelets at 192,000. C-reactive protein noted to be 37.17, this is significantly down from previous admission at 310. Pre-albumin is also noted to be down at 16.2 consistent with mild protein malnutrition. GI consultative notes and Infectious Disease notes are reviewed from 12/15/2018. Blood cultures from 12/15/2018 are outstanding at this time. OBJECTIVE: HEENT: Unremarkable. Cardiovascular: Regular rate and rhythm. Lungs: Clear, but poor inspiratory effort. Abdomen: The abdomen continues to be protuberant. Patient reporting right lower quadrant discomfort last night. Mildly tender on examination, without rebound or guarding. Extremities: Unchanged. Interval improvement in lower extremity edema as well as stasis ulcers and localized erythema. Improving ecchymosis of the left distal foot. Neurologic: Cranial nerves 2-12 are grossly intact. The patient is alert and oriented x3 without any cognitive deficiencies. IMPRESSION AND PLAN: A 78-year-old, with multiple medical problems including but not limited to, admission for sepsis secondary to gram-positive Enterococcus, etiology and source queried. Currently in the process of being prepped for colonoscopy, now with a precipitous fall in his hemoglobin and hematocrit. Patient to be transfused 2 units of packed red blood cells and proceed with endoscopy evaluation, both upper and lower, after further discussion with GI specialists. The patient continues with IV ampicillin q.6 hours. We will begin making arrangements for long- term facility to provide 6 weeks of ongoing IV antibiotic therapy secondary to patient's history of knee and spinal prosthesis. He continues with avascular necrosis, with collapse of the right hip, and is not a surgical candidate at this time secondary to bacteremia. I will follow up later this evening for evening rounds. Further notation, the patient understands course of treatment and plan. No further issues at this time. Note is dictated on the morning of rounds. cc: Jonathan Van DO
[2018-12-16] MEDS: IMURAN PO SCH ×3 (08:07→16:08)
[2018-12-16] MEDS: PRILOSEC PO SCH (08:07)
[2018-12-16] MEDS: LOVENOX SUBQ SCH (11:10)
[2018-12-16] MEDS: BYSTOLIC PO SCH (11:31)
[2018-12-16] MEDS: CRESTOR PO SCH (12:12)
[2018-12-16] MEDS: TYLENOL PO SCH ×3 (12:16→18:00)
[2018-12-16] MEDS: GLUCOPHAGE PO SCH (12:17)
[2018-12-16] MEDS: MESTINON PO SCH ×4 (12:17→21:42)
[2018-12-16] MEDS: PREDNISONE PO SCH (12:17)
[2018-12-16] MEDS: LIORESAL PO SCH ×2 (12:17→21:40)
[2018-12-16] MEDS ORDERED: DIPRIVAN 1% ONE ×2 (12:39→16:55)
--- NOTE | 2018-12-16 16:36 | INFECTIOUS DISEASE PROGRESS NO ---
DATE: 12/16/2018 PRESENT ILLNESS: The patient has an enterococcal bacteremia which may have hematogenously infected the metal that the patient has in his spine and his prosthetic knee, and possibly the hip as well. MEDICATIONS: This is day #2 of treatment with ampicillin 2 g IV every 6 hours. Repeat blood cultures were drawn yesterday. PHYSICAL EXAMINATION: Vital Signs: Temperature is 97.5, pulse 97, respirations 20, blood pressure 121/54. General: This is an ill-appearing elderly male. He is in no acute distress. He is wearing an oxygen mask today. Head, Eyes, Ears, Nose and Throat: He can hear my spoken words and see near objects. He does not have any white patches on his tongue. Neck: It does not hurt him when he turns his head. Lungs: Clear to auscultation. Cardiovascular: Regular heart rate. Abdomen: Soft and nontender. Bones / Joints / Muscles: No knee swelling. Neurologic: The patient is alert. He can move his extremities, but he is very weak. LAB AND X-RAY: CBC today shows a white count of 6210, hemoglobin 7.4 and platelet count 192,000. Repeat blood cultures are pending. Culture from the patient's right hip remains negative. ASSESSMENT AND PLAN: The patient has an enterococcal bacteremia which hematogenously may have infected the metal on his spine and his prosthetic knee joint and his right hip, also. Fortunately, it does not look like any of these structures are infected at this time. I am going to treat the patient for 6 weeks with IV ampicillin. Thus far, the patient's hip culture remains negative. COMORBIDITIES: He is elderly. He has myasthenia gravis. He has avascular necrosis of the right hip and finally he is a diabetic. cc: MD Jonathan Spencer, DO CHLOED
[2018-12-16] MEDS ORDERED: FENTANYL ONE (17:10)
[2018-12-16] MEDS ORDERED: EPINEPHRINE SYRINGE ONE (17:19)
[2018-12-16] MEDS ORDERED: GLUCAGON ONE (17:23)
[2018-12-16] MEDS ORDERED: PROTONIX 80 MG in NS 80 ML IV ONE (18:12)
--- NOTE | 2018-12-16 19:55 | OPERATIVE NOTE ---
PROCEDURE DATE: 12/16/2018 PROCEDURES: 1. Esophagogastroduodenoscopy. 2. Hemorrhage control. 3. Colonoscopy. PREOPERATIVE DIAGNOSES: 1. Acute gastrointestinal bleed, anemia secondary gastrointestinal bleed. 2. Right lower quadrant pain. 3. Enterococcus bacteremia, possible gastrointestinal source/tumor. HISTORY: This is a 78-year-old gentleman who had been complaining of pain in the right lower quadrant area, and during hospitalization he had blood cultures drawn, which grew Enterococcus faecalis in his blood. There is question of possible gastrointestinal tract tumor resulting in his bacteremia. He was being prepared for colonoscopy to identify that. During the prep last night, he started having some melenic stool and some maroon-colored stool. His hemoglobin and hematocrit dropped significantly. With possibility of upper GI bleed, EGD was added to the colonoscopy. DESCRIPTION OF PROCEDURE: Informed consent was obtained from the patient. The patient was brought to the endoscopy unit and was premedicated as per Anesthesia. After adequate sedation, while he was lying in left lateral position, the gastroscope was introduced into the posterior pharynx and advanced under direct vision into the esophagus. Esophagus in its entire length appeared to be normal. No esophagitis, webs, rings, varices were seen. The scope was then passed through the esophagus into the stomach. Stomach was examined both in straight and retroflexed view, which revealed normal cardia, fundus, and body; however, in the antrum, I saw some blood trickling down from the pylorus. The scope was then passed through the pylorus through the normal pylorus into the duodenal bulb where I saw some bright red blood pooled into the duodenal bulb. Vigorous irrigation and suctioning was employed to find the spot of his bleeding. Second portion of the duodenum appeared to be normal, but right at the junction between the bulb and the second portion of the duodenum, there was a linear ulcer noted which was on the medial side. There was some constant oozing from that site. Using a sclerotherapy needle, I injected 1:10,000 epinephrine in aliquots of 0.5 mL. A total of about 3 mL were injected in and around the area getting a good blanching and tamponade effect. The bleeding almost ceased. Then I went ahead and proceeded to apply two Endo clips on the site. It was adequately deployed and again no further bleeding was noted. The scope was then withdrawn. Patient was then repositioned for colonoscopy. Digital rectal exam was performed, which was normal except had melenic stool on my finger stalk. The scope was then introduced into the rectum. I was able to advance the scope after vigorous irrigation and suctioning to cleanse the area, and the scope was advanced all the way up to the cecum. The cecum was identified by ileocecal valve and appendiceal orifice. The scope was then passed through the normal ileocecal valve into terminal ileum where the terminal ileum was coated with dark altered blood, which was again cleansed and suctioned out. Then visualized portion of the terminal ileum did not reveal any pathology. The scope was withdrawn back into the cecum, back through the parts of colon, all the way up to the rectum, paying careful attention to details. Preparation was fair except for the patches of altered blood, which was mostly in the left colon and in the terminal ileum. I did not see any other spots where the visualization of the colon was hindered in any ways. The visualized portion of the colon did not reveal any polyps, tumors, cancers. Retroflexed view of rectum revealed no pathology either. Scope was then removed. Patient tolerated the procedure well. No complications were noted. Patient was then transferred to the recovery area in a stable condition. IMPRESSION: 1. Bleeding, duodenal ulcer treated. 2. Normal colon all the way up to the terminal ilium. RECOMMENDATIONS: I will start him on Protonix drip, recheck hemoglobin and hematocrit after blood transfusion and recheck hemoglobin and hematocrit in the morning. Depending on his progress, further plans will be made. In the meantime, continue medical treatment as per team. I have explained the findings and plan to the patient and the patient's family. She understood, and all the pertinent questions were answered. cc: MD Jonathan Lemus, DO
[2018-12-16] MEDS: PROTONIX 80 MG in NS 80 ML IV SCH (20:32)
[2018-12-16] MEDS: ASPIRIN PO SCH (20:36)
[2018-12-16] MEDS: CYMBALTA PO SCH (21:40)
[2018-12-16] MEDS: LIPITOR PO SCH (21:41)
[2018-12-16] MEDS: FLOMAX PO SCH (21:42)
[2018-12-17] MEDS: AMPICILLIN 2 GM/NS 2 GM/100 ML IVPB IV SCH ×4 (03:45→21:35)
[2018-12-17 06:15] LABS: HEMATOCRIT 29.1 % (42.0-52.0); HEMOGLOBIN 9.3 g/dL (14.0-18.0)
[2018-12-17] MEDS: IMURAN PO SCH ×3 (06:25→15:57)
[2018-12-17] MEDS: PROTONIX 80 MG in NS 80 ML IV SCH ×2 (06:25→15:56)
[2018-12-17 07:08] LABS: ALLEN TEST NO; BE 2.5 mmoll (-3.0-3.0); BLOOD TYPE ARTERIAL; HCO3-(ACT) 26.9 mmoll (20.0-26.0); METHB 0.9 % (0.0-1.5); O2(CT) 12.5 mL/dL (15.0-23.0); O2HB 95.6 % (95.0-99.0); PCO2(98.6) 42 mmHg (35-45); PO2(98.6) 81 mmHg (60-100); SAMPLE BLOOD; SAO2 98.2 % (95.0-100.0); THB 9.2 g/dL (11.5-17.4); pH(98.6) 7.42 (7.35-7.45)
[2018-12-17 07:09] LABS: MODALITY VENTIMASK
--- NOTE | 2018-12-17 07:39 | Diag Imaging Result Doc PS360 ---
CHEST-PORTABLE - 12/17/2018 INDICATION: Aspiration risk COMPARISON: 12/14/2018 FINDINGS: There is some stable minimal atelectasis or infiltrate in the lingula. Heart size appears top normal in today's exam. Pulmonary vascularity is normal. No pneumothorax or pleural effusion. IMPRESSION: Little change from prior. Electronically signed by Manuel Virgen 12/17/2018 7:35 AM
[2018-12-17 07:49] LABS: AGAP 7; ALB/GLOB RATIO 0.8; ALBUMIN 2.5 g/dL (3.5-5.0); ALKALINE PHOSPHATASE 39 U/L (32-122); BUN 33 mg/dL (8-22); CALCIUM 8.2 mg/dL (8.8-10.2); CHLORIDE 108 mmol/L (98-107); COSMO 289; CREATININE 0.5 mg/dL (0.7-1.2); ESTIMATED GFR > 60; GLUCOSE 112 mg/dL (70-104); GOT 13 U/L (10-34); GPT 13 U/L (10-44); POTASSIUM 4.7 mmol/L (3.5-5.1); SODIUM 141 mmol/L (136-145); TCO2 26 mmol/L (25-35); TOTAL PROTEIN 5.5 g/dL (6.3-8.3)
--- NOTE | 2018-12-17 08:06 | PROGRESS NOTE ---
DATE: 12/17/2018 SUBJECTIVE: Indication for prolonged hospitalization status post EGD yesterday with bleeding gastric ulcer. I have briefly spoken to GI. He was transferred to the intensive care unit overnight for observation and ongoing transfusion. It has been a difficult night with increased confusion resulting in patient pulling out his IV access. He is in need of a peripheral access, and will be consulting for central line placement. 48 hours in a second set of blood cultures are noted to be negative. I do think at this point he would be a good candidate for a PICC line placement. This in anticipation for 6 weeks of IV antibiotic for coverage for bacteremia. This in light of back prosthesis and hardware as well as knee prosthesis protection. He only has as an hemoglobin and hematocrit for this morning at 9.3 and 29.1. This is mildly increased from 7.4 and 25.0. His admission hemoglobin and hematocrit at 11.6 and 38.1. He is hemodynamically stable. Vitals at the time of rounds, blood pressure 141/81, saturating 97% on room air with a pulse at 70 to normal sinus rhythm. OBJECTIVE: HEENT is unremarkable. Patient is confused but arousable. Cardiovascular with regular rate and rhythm. Lungs with decreased breath sounds but without wheezes, rhonchi, or rales. Abdomen continues to be protuberant with hyperactive bowel sounds. No focal areas of guarding, tenderness, or rebound. Extremities are benign with the exception of bruising of the upper extremities due to historical IV access as well as trace pretibial edema. Lower extremities/feet are protected in Unna boots. Additional labs ordered including a CMP and ABG which is pending at this time as well as a chest x- ray to further investigate altered mental status. IMPRESSION: A 78-year-old with enterococcus bacteremia complicated by bleeding duodenal ulcer status post EGD on 12/16/2018 now with altered mental status hemodynamically stable. Additional objective data being obtained including radiology studies, CMP and an ABG. He continues on Ventimask with 98% per peripheral monitoring. With his myasthenia gravis, he is at risk for respiratory compromise and decompensation. There have been no additional recommendations for IVIG and/or additional steroids. His second set of blood cultures are noted to be negative. I have discussed with infectious disease historically proceeding with a PICC line once his follow up blood cultures are noted to be negative. His PICC line will be indicated secondary to necessity for long-term ampicillin for his gram-positive bacteremia. He still remains altered. We will be stopping the Cymbalta. It is difficult to determine whether this might be anesthesia mediated, hypoxia mediated, renal mediated and/or other. We will be continuing to follow clinically in this regard. I will be contacting the in this regard. He will spend the day in the intensive care unit for central line placement and PICC line placement, and ongoing evaluation from infectious disease. No new and/or additional recommendations at this time. Note is dictated on the morning of rounds. cc: Jonathan Van DO
[2018-12-17] MEDS: GLUCOPHAGE PO SCH (08:29)
[2018-12-17] MEDS: BYSTOLIC PO SCH (08:29)
[2018-12-17] MEDS: PREDNISONE PO SCH (08:30)
[2018-12-17] MEDS: TYLENOL PO SCH ×3 (08:30→16:30)
[2018-12-17] MEDS: MESTINON PO SCH ×4 (08:30→20:44)
[2018-12-17] MEDS: CRESTOR PO SCH (08:30)
--- NOTE | 2018-12-17 09:08 | INFECTIOUS DISEASE PROGRESS NO ---
DATE: 12/17/2018 PRESENT ILLNESS: The patient has an enterococcal bacteremia which hematogenously may have infected the metal that the patient has on his spine and/or his prosthetic knee. It appears that the patient's right hip is not infected based on negative cultures twice from aspirates of the hip. MEDICATIONS: This is day 2 of ampicillin in a dose of 2 g IV every 6 hours. Day 1 of treatment is the first day that the patient's repeat blood cultures are negative. PHYSICAL EXAMINATION: Vital Signs: Temperature is 98 degrees, pulse 75, respirations 32, blood pressure 141/81. General: This is an ill-appearing, elderly male. He is in no acute distress. He is wearing an oxygen mask and when it comes off, the patient gets lethargic and then when he wears it, he is awake. Head/eyes/ears/nose/throat: He can hear my spoken words and see near objects. He does not have any white coating of his tongue. Neck: It does not hurt him to move his neck. Lungs: Clear to auscultation. Cardiovascular: Regular heart rate. Abdomen: Soft and nontender. Bones/joints/muscles: Neither knee is swollen. Neurologic: The patient is alert when he wears his oxygen mask. He can move his extremities but he is weak. There is no tremor. LAB AND X-RAY: Chest x-ray shows minimal atelectasis/infiltrate in the lingula. Repeat blood cultures drawn on December 15 are negative. Culture from the right hip remains negative. The patient's blood gases show a pH of 7.42, a PO2 of 81 and a pCO2 of 42. Creatinine is 0.5, GFR is greater than 60. ASSESSMENT AND PLAN: Yesterday the patient had esophagogastroduodenoscopy and a bleeding duodenal ulcer was found. The patient also had a colonoscopy and that was normal. The patient has enterococcal bacteremia which may have hematogenously infected metal on his spine and/or his prosthetic knee. It does not appear that the right hip is infected, however. My plan is to treat for 6 weeks with ampicillin. This is day 2 of treatment with ampicillin with day 1 being the first day that the patient's blood cultures were negative. COMORBIDITIES: The patient is elderly and he has myasthenia gravis and avascular necrosis of the right hip. He also is a diabetic. cc: MD Jonathan Spencer, DO
[2018-12-17] MEDS ORDERED: NS 250 ML ONE (09:11)
[2018-12-17] MEDS: CLINIMIX E 4.25%-5% SOLUTION 1,000 ML IV SCH ×2 (09:21→20:45)
--- NOTE | 2018-12-17 09:28 | HEMO/ONC CONSULTATION ---
DATE: 12/17/2018 ADMITTING PHYSICIAN: Dr. Jonathan Van. REQUESTING PHYSICIAN: Dr. Jonathan Van. We appreciate this consult. CHIEF COMPLAINT: IgG deficiency. HISTORY OF PRESENT ILLNESS: Mr. 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 The patient presented to [facility] Emergency Department with complaints of intractable right hip pain. The patient underwent right arthrocentesis to rule out septic joint, which was unremarkable prior to admission, but the patient reports that he continued to have ongoing pain. The patient is admitted for evaluation and for consultation with Orthopedics for right hip total arthroplasty. We are consulted as the patient is known to us with a history of IgG deficiency, in need of IVIG replacement. PAST MEDICAL HISTORY: As in HPI. PAST SURGICAL HISTORY: 1. Laminectomy. 2. Cervical fusion. 3. Cholecystectomy. 4. Knee surgery. 5. TURP. 6. Carpal tunnel release. 7. Neck surgery. 8. Kidney stone removal. FAMILY HISTORY: Negative for any hematologic or oncologic problems. SOCIAL HISTORY: The patient does not use tobacco, alcohol, or illicit drugs. MEDICATIONS ON ADMISSION: 1. Percocet. 2. Aspirin 325. 3. Neurontin. 4. Mestinon. 5. Vitamin D. 6. Baclofen. 7. Metformin. 8. Prevacid. 9. Cymbalta. 10. Imuran. 11. Amlodipine. 12. Bystolic. 13. Icar-C. 14. B12. 15. Solaris. 16. Atorvastatin. 17. Lasix. 18. Aldactone. REVIEW OF SYSTEMS: A 14-point review of systems was obtained and is negative, except as mentioned in the HPI. PHYSICAL EXAMINATION: Vital Signs: Temperature 97.6, blood pressure 141/67, heart rate 73, respirations 22, O2 saturation 99% on Venturi mask. HEENT: Normocephalic, atraumatic. Mucous membranes are pale and moist. Sclerae is anicteric. Extraocular movements intact. Neck: Supple. Lungs: Clear to auscultation bilaterally with decreased breath sounds at the bases. CV: S1, S2 is heard without murmur, rub, or gallop. Abdomen: Nondistended. Extremities: No clubbing or cyanosis. There is 2+ bilateral lower extremity edema. Dermatologic: No rashes, bruises, or lesions. Neurologic: The patient is awake, alert, and oriented x3. He has no focal deficits. LABORATORY DATA: Hemoglobin 10.3, hematocrit 32.5, white blood cell count 7.35, platelets 161,000. Sodium 145, potassium 4.2, chloride 100, CO2 is 34, BUN 20, creatinine 0.9, and glucose is 144, calcium 8.7. LFTs are within normal limits. ProBNP is 1038. IgA 78, IgG 735, IgM 27. ASSESSMENT AND PLAN: 1. Immunoglobulin deficiency. The patient will be given 400 mg/kg of Gamunex. The patient will be followed in clinic for his monthly dose. 2. Sepsis, currently on ampicillin. Infectious Disease is currently following. 3. Right hip avascular necrosis. Again, the patient is on ampicillin. Hip replacement has been delayed secondary to infection. We will sign off after intravenous immunoglobulin infusion. We will schedule the patient for his next infusion in 4 weeks. We are available as needed. Dictated by MICHAEL Guerrero for Simon Nascimento MD cc: MICHAEL Guerrero MD Jeffrey A. Johnson, DO MTDD
[2018-12-17 09:45] LABS: INR 0.96; PROTIME 13.6 Seconds (11.0-16.0)
[2018-12-17 13:07] LABS: HEMATOCRIT 30.1 % (42.0-52.0); HEMOGLOBIN 9.4 g/dL (14.0-18.0)
[2018-12-17] MEDS: ZOFRAN IV PRN (18:22)
[2018-12-17 18:27] LABS: HEMATOCRIT 29.8 % (42.0-52.0); HEMOGLOBIN 9.4 g/dL (14.0-18.0)
--- NOTE | 2018-12-17 19:50 | GASTROENTEROLOGY PROGRESS NOTE ---
DATE: 12/17/2018 SUBJECTIVE: Mr. Alcantara was resting comfortably when I saw him in the morning. He was alert and answering questions. Apparently, he had a rough night. He was confused and had been pulling on his IV. He verbalized no GI symptoms to me today. Overnight, he had 2 large melanotic stool. Since then he has not had any bright red blood per rectum. He is tolerating a clear liquid diet. His hemoglobin and hematocrit has gone up to 9.4 and. 30.1. He is currently on Protonix infusion. IMPRESSION: 1. Upper gastrointestinal bleed. 2. Anemia secondary to upper gastrointestinal bleed. 3. Bleeding duodenal ulcer, treated. 4. Enterococcus bacteremia, resolved. RECOMMENDATION: I would continue his IV Protonix infusion for another 24 hours, and then switch PPI to p.o. In the meantime, advanced his diet to full liquid diet. Continue and we will recheck/monitor hemoglobin and hematocrit, transfuse if necessary. Rest of the medical treatment as per the medical team. I have spoken to his , explained to her the findings and plan. She understood. All the pertinent questions answered. cc: MD Jonathan Lemus, DO
[2018-12-17] MEDS: ASPIRIN PO SCH (20:43)
[2018-12-17] MEDS: FLOMAX PO SCH (20:44)
[2018-12-17] MEDS: LIPITOR PO SCH (20:44)
[2018-12-17] MEDS ORDERED: COZAAR PO ONE (21:17)
[2018-12-18] MEDS: PROTONIX 80 MG in NS 80 ML IV SCH ×2 (02:05→12:14)
[2018-12-18] MEDS: AMPICILLIN 2 GM/NS 2 GM/100 ML IVPB IV SCH ×4 (03:00→21:10)
[2018-12-18] MEDS: ZOFRAN IV PRN (03:01)
[2018-12-18 04:47] LABS: ALLEN TEST YES; BE 0.8 mmoll (-3.0-3.0); BLOOD TYPE ARTERIAL; HCO3-(ACT) 25.5 mmoll (20.0-26.0); METHB 1.1 % (0.0-1.5); O2(CT) 12.9 mL/dL (15.0-23.0); O2HB 93.7 % (95.0-99.0); PCO2(98.6) 50 mmHg (35-45); PO2(98.6) 74 mmHg (60-100); SAMPLE BLOOD; SAO2 95.9 % (95.0-100.0); THB 9.7 g/dL (11.5-17.4); pH(98.6) 7.34 (7.35-7.45)
[2018-12-18 04:49] LABS: MODALITY VENTIMASK
[2018-12-18 05:27] LABS: AGAP 6; ALB/GLOB RATIO 0.9; ALBUMIN 2.4 g/dL (3.5-5.0); ALKALINE PHOSPHATASE 35 U/L (32-122); BUN 28 mg/dL (8-22); CALCIUM 8.2 mg/dL (8.8-10.2); CHLORIDE 109 mmol/L (98-107); COSMO 288; CREATININE 0.6 mg/dL (0.7-1.2); ESTIMATED GFR > 60; GLUCOSE 113 mg/dL (70-104); GOT 13 U/L (10-34); GPT 14 U/L (10-44); POTASSIUM 4.3 mmol/L (3.5-5.1); SODIUM 141 mmol/L (136-145); TCO2 26 mmol/L (25-35); TOTAL PROTEIN 5.1 g/dL (6.3-8.3)
[2018-12-18] MEDS: CLINIMIX E 4.25%-5% SOLUTION 1,000 ML IV SCH (05:56)
[2018-12-18] MEDS: IMURAN PO SCH ×3 (06:28→16:42)
[2018-12-18] MEDS ORDERED: LASIX IV ONE (06:53)
--- NOTE | 2018-12-18 07:31 | Diag Imaging Result Doc PS360 ---
CHEST-PORTABLE - 12/18/2018 INDICATION: Post-op COMPARISON: 12/17/2018 FINDINGS: There has been improvement in the minimal atelectasis or infiltrate in the lingula. No new infiltrates. Heart size remains normal. IMPRESSION: Continued improvement from prior. Electronically signed by Manuel Virgen 12/18/2018 7:29 AM
--- NOTE | 2018-12-18 07:56 | PROGRESS NOTE ---
DATE: 12/18/2018 INDICATION FOR PROLONGED HOSPITALIZATION: Ongoing treatment for gram-positive bacteremia, specifically Enterococcus, hemorrhagic duodenal ulcer, status post EGD, with therapeutic intervention, status post 2 units of packed red blood cells and ongoing subacute respiratory compromise and altered mental status approximately 48 hours postprocedure. We have stopped several of his mind-altering medications, including muscle relaxants, SSRIs, neuropathic pain medicines. He continues to be somewhat obtunded and confused. Review of the chart would suggest that he is falling behind on his output. His exam this morning appears to be worse from a pulmonary standpoint. Chest x-ray, demonstrating evidence of increased interstitial markings, but no focal area of consolidation or mass. Infectious disease notes, hematology/oncology notes, and GI notes are all reviewed. VITAL SIGNS: His vital signs this morning, blood pressure 106/55, saturating 95% on a Ventimask. Pulse at 80, respirations at 28. T-max 98.8 degrees. Current input and output are 4080 input and 2660 output for +1.42 liters. LABORATORY DATA: His laboratory for this morning, an ABG demonstrating a pH at 7.3, pCO2 at 50, PO2 at 74, saturating 95% on 50% Ventimask. Chemistry demonstrating sodium 141, potassium 4.3, chloride 109, BUN and creatinine at 28 and 0.6. Sugar ranging between 112 and 117. Calcium and magnesium are absent; they will be ordered at this time. PHYSICAL EXAMINATION: HEENT: Unremarkable. Respiratory/Lungs: There is increased upper airway and anterior rhonchi. Lungs appear to be clear. Other than anterior rhonchi, there are no wheezes. Cardiovascular: Distant heart sounds precluded secondary to snoring. Abdomen: Soft and nontender. Extremities: Benign. There is 1+ edema in the right lower extremity, the left showing some trace nonpitting ankle edema. Resolving ecchymosis of the left distal foot is appreciated as well. Neurologic: The patient is arousable, but continues in somewhat of a hypersomnolent state. Upper oropharyngeal weakness and airway compromise is suggested. He does keep pulling off his mask and decompensating. IMPRESSION AND PLAN: A 78-year-old myasthenia gravis patient with avascular necrosis of the right hip with partial collapse, further complicated by new onset gram-positive bacteremia, specifically Enterococcus, for which he is being treated with intravenous ampicillin, further complicated by duodenal ulcer with bleeding, requiring 2 units of packed red blood cells. CBC for this morning is pending. He does appear to be some slightly fluid up, and 80 mg of Lasix x1 dose is being provided now. We will be scanning his head for altered mental status, which is now persistent 2 days out from anesthesia and procedure. We will be following up on some additional labs, including phosphorus and magnesium, as well as a CBC. I continued to remain concerned with the patient's upper airway and oropharyngeal status as a manifestation of decompensation, although he continues to be able to demonstrate a negative inspiratory force of -60. His blood gas is mildly changed, with PaO2 falling from 95 to 81 to 74. His pH now 7.34. I will be seeking the opinion of Pulmonary in this regard. The last time that he was in the intensive care unit, he received several days of IVIG, as well as high-dose steroids, with some improvement. I am also considering speaking with his neurologist in [place] for any management recommendations. Local neurology opinion is noted within the chart. DISPOSITION: No new and/or additional issues at this time. I have advised the ICU staff that I will be by this evening for rounds. In the interim, he will spend the day here for ongoing observation. No further issues at this time. Note is dictated on the morning of rounds. cc: Jonathan Van DO
[2018-12-18 08:27] LABS: MAGNESIUM 2.2 mg/dL (1.5-2.7); PHOSPHORUS 3.6 mg/dL (2.7-4.5)
[2018-12-18] MEDS ORDERED: CALMOSEPTINE OINTMENT TOP PRN (08:29)
[2018-12-18 08:33] LABS: EOS# 0.04 X1000 (0.0-0.7); EOS% 0.5 % (0.0-10.0); HEMATOCRIT 30.5 % (42.0-52.0); HEMOGLOBIN 9.6 g/dL (14.0-18.0); IMM GRAN# 0.03 X1000 (0.0-0.04); IMM GRAN% 0.4 % (0.0-0.5); LYMPH# 0.49 X1000 (1.2-3.4); LYMPH% 6.7 % (20.5-51.1); MCH 31.5 PG (27-31); MCHC 31.5 g/dL (33-37); MONO# 0.52 X1000 (0.11-0.59); MONO% 7.1 % (1.7-9.3); MPV 10.2 FL (7.4-10.4); NEUT# 6.25 X1000 (1.4-6.5); NEUT% 85.3 % (42.2-75.2); PLT 193 X1000 (130-400); RBC 3.05 XMIL (4.7-6.1); RDW 16.9 % (11.5-14.5); WBC 7.33 X1000 (4.8-10.8)
[2018-12-18] MEDS: MESTINON PO SCH ×4 (08:41→21:09)
[2018-12-18] MEDS: GLUCOPHAGE PO SCH (08:41)
[2018-12-18] MEDS: COZAAR PO SCH (08:41)
[2018-12-18] MEDS: BYSTOLIC PO SCH (08:41)
[2018-12-18] MEDS: PREDNISONE PO SCH (08:41)
[2018-12-18] MEDS: CRESTOR PO SCH (08:41)
[2018-12-18] MEDS: TYLENOL PO SCH ×3 (08:42→16:41)
[2018-12-18 08:53] LABS: BANDS 2 % (0-1); LYMPHS 8 % (21-51); MONO 7 % (1-9); SEGS 83 % (42-75)
--- NOTE | 2018-12-18 14:27 | GASTROENTEROLOGY PROGRESS NOTE ---
DATE: 12/18/2018 SUBJECTIVE: Patient was resting. He did arouse he has O2 by Venti mask. His is at the bedside. He had an EGD and colonoscopy on 12/16/2018. Findings showed duodenal ulcer that was bleeding and treated. Normal colonoscopy all the way up to the terminal ileum. Patient has some documented dark black stools. OBJECTIVE: Vital Signs: Temperature 97.6 degrees, pulse 73, respirations 26, blood pressure 113/51. Generally patient was resting but aroused easily. is at the bedside. Abdomen: Soft. Positive bowel sounds. Nontender. LABORATORY: Hematology: WBC 7.33, hemoglobin 9.6, hematocrit 30.5, MCV 100.0 platelet 193,000. Chemistry: Sodium 141, potassium 4.3, chloride 109, CO2 26, BUN 28, creatinine 0.6, glucose 113. ASSESSMENT AND PLAN: 1. Upper gastrointestinal bleed. 2. Bleeding duodenal ulcer that was treated. 3. Anemia stable. 4. Enterococcal growth bacteremia on antibiotics. We will continue proton pump inhibitor but will change from IV drip to intravenous push every 12 hours. He can be changed to proton pump inhibitor orally once he is eating. Continue to monitor hemoglobin and hematocrit and transfers transfuse packed red blood cells as needed. Will continue to follow and further plans will be made according to his progress. I have discussed this case with Dr. Falk. Dictated by MICHAEL Bustamante for Corby Falk MD cc: MICHAEL Hawley MD Jeffrey A. Johnson, DO [facility]
[2018-12-18] MEDS: SOLU-MEDROL IV SCH ×2 (17:18→22:14)
--- NOTE | 2018-12-18 17:46 | PROGRESS NOTE ---
DATE: 12/18/2018 SUBJECTIVE: Mr. Arizmendi continues to be followed for gram-positive bacteremia as well as recent hemodynamically significant GI bleed. He received definitive intervention and has received also with endoscopy as well as 2 units of packed red blood cells. Today, he has been somewhat hypotensive and labile with his oxygen saturation. He is on Venti mask. At this point, maintain saturation at 97%. However when he comes off the Venti mask, he acutely desaturates. I have spoken to the patient's neurologist, Dr. Sonido Cruz and Yuli, regarding concern for myasthenia flare. He has recommended some adjustments in his medications. The hospital currently has no IVIG. It has been recommended that he receive 0.4 mg/kg per day for 5 days. After talking with the pharmacy, they recommend 40 mg a day. However, this is unavailable at the facility. Therefore, we will be adding increased amount of steroid as well as increasing his maintenance medicine of Mestinon from 60 mg to 90 mg every 6 hours. Based on his tenuous respiratory status and being hypotensive for most of the day, we will keep him in the intensive care unit for overnight observation. Of interest, the last time he was in the intensive care unit, he did require vasopressors to maintain his blood pressure. He received 80 mg of IV Lasix this morning. He has had 1480 in and 2000 out, currently at -520 for the past 12 to 24 hours. We will continue to follow clinically in this regard. I have also spoken with Infectious Disease who has signed off on the case. He has recommended 39 days of additional IV ampicillin q.6 hours. Social work is working on placement following discharge likely sometime next week. The patient understands the course of treatment and plan. No further issues at this time. Note is dictated on the evening of rounds. No further issues at this time. cc: Jonathan Van DO
--- NOTE | 2018-12-18 18:04 | INFECTIOUS DISEASE PROGRESS NO ---
DATE: 12/18/2018 SUBJECTIVE: The patient has an enterococcal bacteremia which might have hematogenously infected the patient's total knee arthroplasty and his steel rods in his spine. Because of that, I suggest doing a 6-week course of IV ampicillin. This is day 3 of treatment. The patient will have 39 more days of treatment and following that, I suggest putting the patient on amoxicillin 500 mg p.o. every 12 hours indefinitely. Thank you for allowing me to see Mr. Alcantara. cc: MD Jonathan Spencer, DO MTDNikita
[2018-12-18] MEDS: MUCINEX PO SCH (21:10)
[2018-12-18] MEDS: SODIUM CHLORIDE 0.9% INJ SCH (21:10)
[2018-12-18] MEDS: PROTONIX IV SCH (21:10)
[2018-12-18] MEDS: FLOMAX PO SCH (21:10)
[2018-12-18] MEDS: LIPITOR PO SCH (21:10)
--- NOTE | 2018-12-18 21:54 | CONSULTATION ---
DATE OF CONSULTATION: 12/18/2018 CHIEF COMPLAINT: Upper gastrointestinal bleed. HISTORY OF PRESENT ILLNESS: This is a 78-year-old male with multiple medical problems. Recent chest x-ray revealed stable minimal atelectasis or infiltrate. Patient denies shortness of breath at the present time. PAST MEDICAL HISTORY: Iron deficiency anemia, myasthenia gravis, multinodular goiter, spondylosis, IgG deficiency, diabetes mellitus, chronic pain syndrome, chronic kidney disease, hypertension, lower extremity edema. PAST SURGICAL HISTORY: Laminectomy and cervical fusion, knee surgery, cholecystectomy, TURP, carpal tunnel release, neck surgery, kidney stone removal. FAMILY HISTORY: Negative. SOCIAL HISTORY: Denies tobacco, alcohol or illicit drug use. HOME MEDICATIONS: See home reconciliation list. REVIEW OF SYSTEMS: A 10-point review of systems was obtained, and the pertinent is mentioned in the HPI, otherwise noncontributory. LABORATORY DATA: White blood cells 7.33, red blood cells 3.05, hemoglobin 9.6. Hematocrit 30.5, pH 7.34, pCO2 50, pO2 74, HC03 25.5, base excess 0.8, oxyhemoglobin 93.7. PHYSICAL EXAMINATION: General: This is a 78-year-old, male in no acute distress at the present time, resting quietly. Vital Signs: O2 saturation 92% with oxygen flow rate at 50% prior to Venturi mask. Pulse rate 77, respiratory rate 23, blood pressure 132/67. HEENT: Head is normocephalic, atraumatic. Mucous membranes moist. Neck: Supple. Trachea is midline. Lungs: Clear to auscultation bilaterally with decreased entry throughout. Cardiovascular: S1, S2 auscultated. No murmurs, rubs or gallops. Abdomen: Nondistended. Bowel sounds present in all 4 quadrants. Extremities: Without clubbing or cyanosis. 2+ bilateral lower extremity edema. Neurologic: Patient awake, alert and oriented x3. ASSESSMENT AND PLAN: 1. Sepsis on ampicillin. Infectious disease following. 2. Atelectasis or infiltrate and hypercapnia. Continue antibiotics and steroids and BiPAP use. We will follow ABGs. 3. Upper gastrointestinal bleed. Gastroenterology following. 4. Anemia, stable. 5. Right hip avascular necrosis, is awaiting hip replacement after infection is cleared. Thank you for the courtesy of this consult. Dictated by MICHAEL Mooney for Loida Jara MD cc: MICHAEL Mooney MD Jeffrey A. Johnson, DO
[2018-12-18] MEDS: ASPIRIN PO SCH (22:14)
[2018-12-19] MEDS: AMPICILLIN 2 GM/NS 2 GM/100 ML IVPB IV SCH ×4 (04:10→22:59)
[2018-12-19] MEDS: SOLU-MEDROL IV SCH ×4 (04:10→22:57)
[2018-12-19 05:18] LABS: ALLEN TEST YES; BE 2.8 mmoll (-3.0-3.0); BLOOD TYPE ARTERIAL; MODALITY VENTIMASK; PCO2(98.6) 47 mmHg (35-45); PO2(98.6) 69 mmHg (60-100); SAMPLE BLOOD; pH(98.6) 7.39 (7.35-7.45)
[2018-12-19] MEDS: IMURAN PO SCH ×3 (06:23→16:24)
[2018-12-19 06:40] LABS: HEMOGLOBIN 9.2 g/dL (14.0-18.0); IMM GRAN# 0.02 X1000 (0.0-0.04); IMM GRAN% 0.2 % (0.0-0.5); LYMPH# 0.15 X1000 (1.2-3.4); LYMPH% 1.9 % (20.5-51.1); MCH 31.2 PG (27-31); MCHC 31.7 g/dL (33-37); MCV 98.3 FL (81-99); MONO% 1.2 % (1.7-9.3); MPV 10.6 FL (7.4-10.4); NEUT% 96.7 % (42.2-75.2); PLT 241 X1000 (130-400); RBC 2.95 XMIL (4.7-6.1); WBC 8.07 X1000 (4.8-10.8)
[2018-12-19 06:44] LABS: BANDS 2 % (0-1); HYPOCHROM 1+; LYMPHS 1 % (21-51); SEGS 97 % (42-75)
[2018-12-19 06:55] LABS: AGAP 9; ALB/GLOB RATIO 0.9; ALBUMIN 2.8 g/dL (3.5-5.0); ALKALINE PHOSPHATASE 43 U/L (32-122); BUN 27 mg/dL (8-22); CALCIUM 8.8 mg/dL (8.8-10.2); CHLORIDE 106 mmol/L (98-107); COSMO 288; CREATININE 0.7 mg/dL (0.7-1.2); ESTIMATED GFR > 60; GLUCOSE 122 mg/dL (70-104); GOT 21 U/L (10-34); GPT 22 U/L (10-44); POTASSIUM 4.5 mmol/L (3.5-5.1); SODIUM 141 mmol/L (136-145); TCO2 26 mmol/L (25-35); TOTAL BILIRUBIN 0.51 mg/dL (0.20-1.00); TOTAL PROTEIN 5.9 g/dL (6.3-8.3)
[2018-12-19] MEDS: PROTONIX IV SCH ×2 (09:09→20:33)
[2018-12-19] MEDS: MESTINON PO SCH ×4 (09:09→20:33)
[2018-12-19] MEDS: CRESTOR PO SCH (09:10)
[2018-12-19] MEDS: GLUCOPHAGE PO SCH (09:10)
[2018-12-19] MEDS: BYSTOLIC PO SCH (09:11)
[2018-12-19] MEDS: TYLENOL PO SCH ×3 (09:11→16:24)
[2018-12-19] MEDS: MUCINEX PO SCH ×2 (09:11→20:33)
[2018-12-19] MEDS: PREDNISONE PO SCH (09:12)
[2018-12-19] MEDS: COZAAR PO SCH (09:12)
--- NOTE | 2018-12-19 11:57 | PROGRESS NOTE ---
DATE: 12/19/2018 INDICATION FOR PROLONGED HOSPITALIZATION: Ongoing medical management for bacteremia/sepsis secondary to enterococcus faecalis. He is in need of 38 more days of IV antibiotics. He has had a PICC line placed for this upon discharge. He was moved to the intensive care unit after an EGD 2 days ago with a bleeding duodenal ulcer. He received 2 units of packed red blood cells and his hemoglobin and hematocrit for today 9.2 and 29.0. This is marginally improved from his pre- transfusion hemoglobin and hematocrit of 7.4 and 25.0. He is noted to be hypotensive this morning with blood pressure 117/47. Overnight he was transitioned from Venti mask to 6 L nasal cannula and appears to be saturating appropriately. I's and O's over the past 24 hours, 4080 in and 2660 out, for +1420 and of most recently 2180 in and 2840 out for -660. Over the past 24 hours, I have spoken to patient's neurologist in [place], recommending ongoing maintenance medicines including prednisone perhaps at a higher dose than maintenance, increasing the Mestinon and the possibility of 40 mg of IVIG sequentially for 5 days. Pharmacy is unable to obtain IVIG. Therefore, adjustments were made in the Mestinon and prednisone yesterday. Upon talking to the patient this morning, he has missed at least 1 of his infusions of Solaris which is a complement inhibitor. He has been taking 1200 mg biweekly and has not received his infusion for this month. This may certainly be a complicating factor. I have spoken to the pharmacy who is in agreement that the patient may bring in his medication and we will provide him an infusion while he is hospitalized. I was not aware of this yesterday as I was talking to his neurologist in [place]. Patient appears to be generally improved this morning. He continues on clear liquids. He has had 2 liquid and melanotic stools. His hemoglobin and hematocrit is still somewhat low. We will continue to follow in this regard. OBJECTIVE: Vital signs: This morning, blood pressure 117/47, respirations at 22, pulse at 96, saturating 97% on 6 L. HEENT: unremarkable. Cardiovascular: Distant heart sounds. Respiratory: Coarse rhonchi with coughing are still appreciated on respiratory exam but without wheezes or rales. Abdomen: Continues to be protuberant with hyperactive bowel sounds and he has some gaseous distention. Extremities: With 1+ pitting edema of the right lower extremity. The left is unremarkable. ROBERT hose are in place. LABORATORY DATA: For this morning, white blood cell count 8.0, hemoglobin and hematocrit at 9.2 and 29.0, platelets at 247,000. ABG with pH at 7.39, pCO2 at 47, PO2 at 69. Chemistry: Sodium at 141, potassium at 4.5, chloride 106, BUN and creatinine at 27 and 0.7. Sugar running between 113 and 143. I suspect that this will increase with Solu-Medrol having been added. IMPRESSION: A 78-year-old with multiple medical problems, most recently clinically symptomatic upper gastrointestinal bleed with duodenal ulcer, status post therapeutic intervention. Hemoglobin and hematocrit still continues to be on the low side but he appears to be oxygenating appropriately. He still is somewhat hypotensive as well. We will be repeating a CBC in the morning as well as an iron panel, and type and screen for perhaps 1 additional unit. In the interim, I have spoken with the and I have spoken with the pharmacy with regards to initiating the infusion of Solaris which he has missed over the past 2 weeks. I think this would likely be of benefit. It did seem to be beneficial over the past several months since he has seen neurology last fall. We will continue to wait to see if there is any IVIG available over the course of the next 3 to 4 days. I do think based on this infusion and his hypotension that we will keep him in the intensive care unit today, perhaps reassess tomorrow and perhaps transition to the floor. Ultimately, he will need some long-term placement for ongoing IV antibiotics for the next 38 days. There are no new and/or additional recommendations at this time. Note is dictated on the morning of rounds. cc: Jonathan Van,
[2018-12-19] MEDS ORDERED: MISC. PHARMACY COMMUNICATION SCH (17:45)
[2018-12-19] MEDS ORDERED: IN NS IV SCH (20:00)
[2018-12-19] MEDS: FLOMAX PO SCH (20:33)
[2018-12-19] MEDS: LIPITOR PO SCH (20:33)
[2018-12-19] MEDS: ASPIRIN PO SCH (20:36)
[2018-12-20] MEDS: AMPICILLIN 2 GM/NS 2 GM/100 ML IVPB IV SCH ×4 (03:12→22:52)
[2018-12-20 05:16] LABS: ALLEN TEST YES; BE 1.7 mmoll (-3.0-3.0); BLOOD TYPE ARTERIAL; HCO3-(ACT) 26.2 mmoll (20.0-26.0); O2(CT) 7.4 mL/dL (15.0-23.0); O2HB 92.7 % (95.0-99.0); PCO2(98.6) 43 mmHg (35-45); PO2(98.6) 62 mmHg (60-100); SAMPLE BLOOD; SAO2 94.9 % (95.0-100.0); THB 5.6 g/dL (11.5-17.4)
[2018-12-20 05:17] LABS: MODALITY CANNULA
[2018-12-20] MEDS: SOLU-MEDROL IV SCH ×4 (05:26→22:52)
[2018-12-20] MEDS: IMURAN PO SCH ×3 (06:07→16:36)
[2018-12-20 07:20] LABS: IRON SATURATION 12 %; TIBC 251 ug/dL; TOTAL IRON 31 ug/dL (53-167); UNBOUND IRON 220 ug/dL (112-346)
[2018-12-20] MEDS: PROTONIX IV SCH ×2 (08:32→20:31)
[2018-12-20] MEDS: MESTINON PO SCH ×4 (08:32→20:31)
[2018-12-20] MEDS: TYLENOL PO SCH ×3 (08:33→16:35)
[2018-12-20] MEDS: BYSTOLIC PO SCH (08:33)
[2018-12-20] MEDS: CRESTOR PO SCH (08:33)
[2018-12-20] MEDS: PREDNISONE PO SCH (08:33)
[2018-12-20] MEDS: COZAAR PO SCH (08:33)
[2018-12-20] MEDS: MUCINEX PO SCH ×2 (08:33→20:31)
[2018-12-20] MEDS: GLUCOPHAGE PO SCH (08:33)
[2018-12-20 09:14] LABS: HEMATOCRIT 24.2 % (42.0-52.0); HEMOGLOBIN 7.4 g/dL (14.0-18.0); IMM GRAN# 0.04 X1000 (0.0-0.04); IMM GRAN% 0.3 % (0.0-0.5); LYMPH# 0.35 X1000 (1.2-3.4); LYMPH% 2.5 % (20.5-51.1); MCH 30.2 PG (27-31); MCHC 30.6 g/dL (33-37); MCV 98.8 FL (81-99); MONO# 0.65 X1000 (0.11-0.59); MONO% 4.7 % (1.7-9.3); MPV 10.6 FL (7.4-10.4); NEUT# 12.78 X1000 (1.4-6.5); NEUT% 92.5 % (42.2-75.2); PLT 336 X1000 (130-400); RBC 2.45 XMIL (4.7-6.1); RDW 15.8 % (11.5-14.5); WBC 13.82 X1000 (4.8-10.8)
[2018-12-20 10:54] LABS: BANDS 2 % (0-1); LYMPHS 4 % (21-51); SEGS 94 % (42-75)
[2018-12-20] MEDS ORDERED: LASIX IV ONE (16:00)
[2018-12-20] MEDS: ZOFRAN IV PRN (16:04)
--- NOTE | 2018-12-20 20:11 | PROGRESS NOTE ---
DATE: 12/20/2018 INDICATION FOR PROLONGED HOSPITALIZATION: Progressive altered mental status, falling hemoglobin and hematocrit complicated by hypotension, patient having been admitted several days ago for high fever and sepsis secondary to enterococcus faecalis. He was noted to have a precipitous drop in his hemoglobin and hematocrit and subsequently underwent endoscopy with evidence of duodenal ulcer with hemorrhage. He underwent therapeutic injection. Today his hemoglobin and hematocrit has dropped from 9.2 and 29.0 to 7.4 and 24.7, perhaps a more worrisome finding is his white blood cell count is 13.82. I suspect that this might be steroid mediated but cannot rule out the presence of impending/recurrent sepsis. T-max over the past 24 hours 98.5. Vitals this morning when rounding blood pressure 135/87, respirations at 28, pulse at 90, temperature at 97.6 degrees. Most recent set of vitals at 1802 blood pressure 123/63 with MAP at 67, respirations at 30, pulse rate at 67, last temperature of record 97.9. I's and O's for the day 1540 in and 1475 out for +65 mL, 900 in and 100 out for +800 mL, cumulative during his hospitalization he is - 617 mL. Laboratory for this morning white blood cell count elevated at 13.82, hemoglobin and hematocrit falling from 9.2 and 29.0 to 7.4 and 24.2, platelet count at 336,000. ABG pH 7.4 pCO2 at 43, PO2 at 62, percent saturation at 94.9, patient on 6 L nasal cannula. No chemistry is pending at this time. An iron panel was obtained demonstrating evidence of iron deficiency. Patient would likely benefit from iron infusion, will defer at this time pending 2 units of packed red blood cells. Over the past 24 hours patient appeared to be interval improved yesterday having received his maintenance complement inhibitor specifically Solaris, he receives 1200 mg every 2 weeks. He has not had an infusion in the past month. Potential adverse reactions and/or side effects would include hypertension, infection, meningeal coccal infection and anemia. EXAM: HEENT: Patient appears to be much more confused but able to focus when spoken to. The is at the bedside. He is complaining of being hot. He is adjusted in bed with the assistance of the staff. Cardiovascular: Regular rate and rhythm with distant heart sounds. Significant amount of upper oropharyngeal noise is appreciated without wheezing or stridor. Lung sounds are diminished without rales. Abdomen: Continues to be protuberant but soft, some nonspecific tenderness is suggested in the left lower quadrant without rebound or guarding. Right lower extremity with 1+ pretibial edema, the left with zuleyma ankle edema trace but nonpitting, presence of ROBERT hose are in place. Cranial nerves are not assessed. Patient is able to follow commands. Orientation to person, place and time is not performed at this time. IMPRESSION: 78-year-old with gram-positive sepsis secondary to enterococcus faecalis this on top of known history of avascular necrosis of the right hip with partial collapse further complicated by a postadmission fall in hematocrit with findings consistent with large duodenal ulcer requiring therapeutic intervention with injectable vasoconstriction and clipping. He is within 24 hours of receiving complement inhibitor for baseline myasthenia gravis and recent adjustments in Mestinon and maintenance steroids have been provided. Scarce availability of IVIG precludes recommended 40 mg of IVIG for 5 days. He continues to demonstrate adequate but labored respirations, his ABGs have been appropriate although he does appear to have a slight decrease in his PaO2, his negative inspiratory force continues to be greater than -60. I am uncertain as to the exact etiology of his cognitive decline. Historical urine growth on 12/11 is noted to be negative. Blood cultures as recently as 12/15 are noted to be negative. Repeat blood culture and urine culture will be ordered as well as proceeding with diagnostic imaging of the neck and shaft. A D-dimer is also ordered for tachypnea and hypoxia. DISPOSITION: Prognosis is becoming more unfavorable and poor at best. It is encouraging that his renal function and liver function are stable at this time but I am uncertain with his recent history of sepsis and now with elevated white blood cell count and increasing confusion whether this might not represent a secondary infection perhaps at the expense of increasing steroids and/or adding the recent complement inhibitor. Nevertheless he will stay in the intensive care unit over the next 24 hours with interval followup on Friday morning. Patient's understands the course of treatment and plan. No further issues at this time. Note is dictated on the evening following rounds. cc: Jonathan Van, DO
[2018-12-20] MEDS: LIPITOR PO SCH (20:30)
[2018-12-20] MEDS: FLOMAX PO SCH (20:31)
[2018-12-20] MEDS: ASPIRIN PO SCH (20:31)
[2018-12-20 20:41] LABS: BASO# 0.01 X1000 (0.0-0.2); BASO% 0.1 % (0.0-0.8); EOS# 0.03 X1000 (0.0-0.7); EOS% 0.2 % (0.0-10.0); HEMATOCRIT 29.3 % (42.0-52.0); HEMOGLOBIN 9.3 g/dL (14.0-18.0); IMM GRAN# 0.03 X1000 (0.0-0.04); IMM GRAN% 0.2 % (0.0-0.5); LYMPH# 0.32 X1000 (1.2-3.4); LYMPH% 2.5 % (20.5-51.1); MCH 29.9 PG (27-31); MCHC 31.7 g/dL (33-37); MCV 94.2 FL (81-99); MONO# 0.44 X1000 (0.11-0.59); MONO% 3.4 % (1.7-9.3); MPV 10.7 FL (7.4-10.4); NEUT# 12.15 X1000 (1.4-6.5); NEUT% 93.6 % (42.2-75.2); PLT 270 X1000 (130-400); RBC 3.11 XMIL (4.7-6.1); RDW 16.9 % (11.5-14.5); WBC 12.98 X1000 (4.8-10.8)
--- NOTE | 2018-12-20 21:52 | Diag Imaging Result Doc PS360 ---
EXAM: CT NECK W/O CONTRAST HISTORY: Oral airway edema/SHEEHAN TECHNIQUE: CT neck without contrast COMPARISON: None. FINDINGS: No sinus opacification. No air-fluid levels. The parotid and submandibular glands are symmetric. No precervical soft tissue swelling. There has been fusion to the mid and lower cervical spine. The thyroid is not enlarged. Normal larynx. Moderate to prominent atherosclerosis. No solid mass or fluid collection identified. IMPRESSION: No acute abnormality. This exam was performed using automated exposure control, adjustment of mA or kV according to patient size, and/or use of iterative reconstruction technique. Electronically signed by Popeye Betts 12/20/2018 9:50 PM
--- NOTE | 2018-12-20 22:09 | Diag Imaging Result Doc PS360 ---
EXAM: CT THORAX W/O CONTRAST HISTORY: worsening SOB TECHNIQUE: CT chest without contrast COMPARISON: 11/16/2018 FINDINGS: There has been resolution of the prior tiny effusions. No cardiomegaly. No thoracic aortic aneurysm. Moderate atherosclerosis. There are scattered granuloma. No enlarged lymph nodes. There is pulmonary edema. Mild emphysema. Mild increased interstitial markings in the right lower lobe. IMPRESSION: 1.Pulmonary edema 2.Small right lower lobe infiltrates This exam was performed using automated exposure control, adjustment of mA or kV according to patient size, and/or use of iterative reconstruction technique. Electronically signed by Popeye Betts 12/20/2018 10:06 PM
[2018-12-21 04:48] LABS: ALLEN TEST YES; BE 0.8 mmoll (-3.0-3.0); BLOOD TYPE ARTERIAL; HCO3-(ACT) 25.5 mmoll (20.0-26.0); O2(CT) 12.8 mL/dL (15.0-23.0); O2HB 92.4 % (95.0-99.0); PO2(98.6) 69 mmHg (60-100); SAMPLE BLOOD; SAO2 94.8 % (95.0-100.0); THB 9.8 g/dL (11.5-17.4); pH(98.6) 7.31 (7.35-7.45)
[2018-12-21 04:49] LABS: EOS# 0.03 X1000 (0.0-0.7); EOS% 0.3 % (0.0-10.0); HEMATOCRIT 27.9 % (42.0-52.0); HEMOGLOBIN 8.9 g/dL (14.0-18.0); IMM GRAN# 0.03 X1000 (0.0-0.04); IMM GRAN% 0.3 % (0.0-0.5); LYMPH# 0.23 X1000 (1.2-3.4); MCHC 31.9 g/dL (33-37); MCV 93.9 FL (81-99); MONO# 0.43 X1000 (0.11-0.59); MONO% 3.8 % (1.7-9.3); MPV 10.9 FL (7.4-10.4); NEUT# 10.56 X1000 (1.4-6.5); NEUT% 93.6 % (42.2-75.2); PLT 267 X1000 (130-400); RBC 2.97 XMIL (4.7-6.1); RDW 17.2 % (11.5-14.5); WBC 11.28 X1000 (4.8-10.8)
[2018-12-21 04:51] LABS: PCO2(98.6) 55 mmHg (35-45)
[2018-12-21 04:52] LABS: MODALITY BI PAP
[2018-12-21] MEDS: AMPICILLIN 2 GM/NS 2 GM/100 ML IVPB IV SCH ×4 (05:04→22:32)
[2018-12-21] MEDS: SOLU-MEDROL IV SCH ×4 (05:04→22:31)
[2018-12-21] MEDS: MORPHINE IV PRN (05:35)
[2018-12-21 05:59] LABS: AGAP 12; ALB/GLOB RATIO 1.2; ALBUMIN 2.9 g/dL (3.5-5.0); ALKALINE PHOSPHATASE 41 U/L (32-122); BUN 56 mg/dL (8-22); CALCIUM 8.5 mg/dL (8.8-10.2); CHLORIDE 110 mmol/L (98-107); COSMO 310; CREATININE 0.9 mg/dL (0.7-1.2); ESTIMATED GFR > 60; GLUCOSE 133 mg/dL (70-104); GOT 12 U/L (10-34); GPT 15 U/L (10-44); MAGNESIUM 2.5 mg/dL (1.5-2.7); PHOSPHORUS 5.1 mg/dL (2.7-4.5); POTASSIUM 4.6 mmol/L (3.5-5.1); SODIUM 147 mmol/L (136-145); TCO2 25 mmol/L (25-35); TOTAL BILIRUBIN 0.45 mg/dL (0.20-1.00); TOTAL PROTEIN 5.4 g/dL (6.3-8.3)
[2018-12-21] MEDS ORDERED: NS 1,000 ML ONE (06:05)
[2018-12-21] MEDS ORDERED: VERSED ONE (06:06)
[2018-12-21] MEDS ORDERED: QUELICIN ONE (06:06)
--- NOTE | 2018-12-21 06:27 | Diag Imaging Result Doc PS360 ---
EXAM: CHEST-PORTABLE HISTORY: intubation TECHNIQUE: Portable chest COMPARISON: 12/18/2018 FINDINGS: There is a large right-sided pneumothorax with collapse of the right lung. There is a large amount of subcutaneous air in the lower neck and axilla. There is air in the mediastinum. The heart is not enlarged. No pleural effusions identified. Endotracheal tube is in good position. Right-sided PICC line is unchanged. IMPRESSION: Interval development of a large right pleural effusion with collapse of the right lung. This report was discussed with Pavel horton patient's nurse in the ICU on 12/21/2018 at 6:25 AM and was readback. Electronically signed by Popeye Betts 12/21/2018 6:25 AM
[2018-12-21] MEDS ORDERED: LEVOPHED 8 MG in D5 1/2 NS 250 ML IV SCH (07:00)
[2018-12-21] MEDS ORDERED: QUELICIN IV ONE (07:20)
[2018-12-21] MEDS ORDERED: VERSED IV ONE (07:20)
[2018-12-21] MEDS: IMURAN PO SCH (07:23)
--- NOTE | 2018-12-21 07:23 | PROGRESS NOTE ---
DATE: 12/21/2018 INDICATION FOR PROLONGED HOSPITALIZATION: Refractory hypoxia now on ventilatory support and hypotension now requiring vasopressors over the past 24 hours. Mr. Alcantara has received 2 units of packed red blood cells and continues to be anemic. His hemoglobin and hematocrit this morning at 8.9 and 27.9. He has continued to struggle with respiratory status. CT scan of the neck and CT scan of the chest performed last night are reviewed. Pulmonary edema and emphysema as well as nonspecific markings in the right lower lobe are noted. The CT scan of the neck was unremarkable for any significant or pharyngeal edema or adenopathy. This morning, after placement of BiPAP, he was noted to have become unresponsive but maintained a cardiac pulse. Anesthesia and general surgery were called, and a chest x-ray was obtained, consistent with pneumothorax on the right side. He underwent emergent placement of a chest tube. CURRENT VITAL SIGNS: Blood pressure 94/36, saturating 93%, with a heart rate of 70. LABORATORY DATA: This morning shows a white blood cell count of 11.28, hemoglobin and hematocrit at 8.9 and 27.9, with platelets at 267,000. Additional labs including an ABG, pH 7.31, pCO2 at 55, PO2 at 69, saturating at 94.8%. Of interest, abnormal D-dimer at 7.43. Additional Studies: Sodium at 147, potassium 4.6, chloride at 100, BUN and creatinine at 56 and 0.9, glucose at 133 to 137, phosphorus slightly elevated at 5.1. PHYSICAL EXAMINATION: General: The patient is intubated and sedated. Cardiovascular: Distant heart sounds. Regular rate and rhythm. Lungs: Clear. Abdomen: Soft, with hypoactive bowel sounds. Extremities: With trace bilateral pedal edema. Presence of PICC line in the right upper extremity and now a chest tube in the right hemithorax. IMPRESSION: A 78-year-old with interval worsening of clinical state over the past 24 hours secondary to respiratory failure, now with a pneumothorax on the right side. We will be seeking the opinion of pulmonary critical care in this complicated patient. The patient continues to be treated for gram-positive bacteremia with ampicillin every 6. He continues to be anemic which might be complicating his cognitive state as well as contributing to hypotension. Following his respiratory event, he now continues on vasopressin support and ventilatory support. His prognosis continues to decline. I will be speaking to the family today about code status and seeking the opinion of pulmonary critical care in this regard. I suspect, based on his flat response to 2 units of packed red blood cells and his rising BUN, that he is likely continuing to bleed from the duodenal ulcer which was discovered last week. He continues to have a melenic stools. No new and/or additional issues at this time. Note is dictated on the morning of rounds. cc: Jonathan Van, DO
[2018-12-21] MEDS: NEO-SYNEPHRINE 50 MG in NS 250 ML IV SCH ×3 (07:50→22:48)
[2018-12-21] MEDS ORDERED: DIPRIVAN 1% 1,000 MG/100 ML BOTTLE ONE (08:03)
--- NOTE | 2018-12-21 08:03 | EKG Report ---
Test Performed on : 12/19/2018 05:52:41 AM Test Reason : anemia and shortness of breath Blood Pressure : / mmHG Vent. Rate : 091 BPM Atrial Rate : 091 BPM P-R Int : 168 ms QRS Dur : 128 ms QT Int : 402 ms P-R-T Axes : 044 068 010 degrees QTc Int : 494 ms Normal sinus rhythm. Right bundle branch block Abnormal ECG When compared with ECG of 15-DEC-2018 07:18, No significant change was found Confirmed by Birdie NEVILLE, Omid ([id number]) on 12/21/2018 9:13:28 AM
[2018-12-21] MEDS: DIPRIVAN 1% 1,000 MG/100 ML BOTTLE IV SCH ×3 (08:12→22:34)
--- NOTE | 2018-12-21 09:11 | Diag Imaging Result Doc PS360 ---
EXAM: CHEST-PORTABLE HISTORY: f/u CHEST TUBE PLACEMENT TECHNIQUE: Portable chest single view COMPARISON: 6:15 AM FINDINGS: Interval placement of a right-sided chest tube. There has been reexpansion of the right lung with dramatic decrease in the size of the pneumothorax. Endotracheal tube is in good position with tip located approximately 3 to 4 cm above the bette. A nasogastric tube is in good position overlying the esophagus and stomach. Electronically signed by Popeye Betts 12/21/2018 9:09 AM
[2018-12-21 09:44] LABS: ALLEN TEST YES; BE -0.5 mmoll (-3.0-3.0); BLOOD TYPE ARTERIAL; HCO3-(ACT) 24.5 mmoll (20.0-26.0); METHB 1.3 % (0.0-1.5); MODALITY VENTILATOR; O2(CT) 11.5 mL/dL (15.0-23.0); O2HB 94.4 % (95.0-99.0); PCO2(98.6) 50 mmHg (35-45); PO2(98.6) 77 mmHg (60-100); SAMPLE BLOOD; SRATE 14 BPM; THB 8.6 g/dL (11.5-17.4); TVOL 600 mL; pH(98.6) 7.32 (7.35-7.45)
[2018-12-21] MEDS ORDERED: SODIUM BICARBONATE 8.4% 50 MEQ in D5W 1,000 ML IV SCH (09:45)
[2018-12-21] MEDS: MESTINON PO SCH ×4 (09:52→22:30)
[2018-12-21] MEDS: GLUCOPHAGE PO SCH (09:52)
[2018-12-21] MEDS: CRESTOR PO SCH (09:52)
[2018-12-21] MEDS: BYSTOLIC PO SCH (09:52)
[2018-12-21] MEDS: TYLENOL PO SCH ×3 (09:52→17:54)
[2018-12-21] MEDS: PREDNISONE PO SCH (09:52)
[2018-12-21] MEDS: SODIUM CHLORIDE 0.9% INJ SCH ×2 (09:53→22:33)
[2018-12-21] MEDS: PROTONIX IV SCH ×2 (09:53→22:33)
--- NOTE | 2018-12-21 10:14 | PULMONOLOGY PROGRESS NOTE ---
DATE: 12/21/2018 NOTE: I am assuming the critical care/pulmonary care from Dr. Jara at the request of Dr. Jonathan Van. The patient was seen in previous hospitalizations. BRIEF HISTORY: This is a 78-year-old with myasthenia gravis on Imuran, diabetes mellitus, a history of deep vein thrombosis, with severe pain due to avascular necrosis of the hip. The patient was being evaluated for possible surgery. The patient was admitted to the hospital on 12/10/2018 with intractable pain. Blood cultures on admission revealed enterococcus. Subsequent culture of the right hip revealed no growth. CT scan of the abdomen and pelvis shortly after admission revealed diverticulosis with avascular necrosis of the right hip and bilateral renal stones. Subsequent addendum did reveal some filling defects consistent with pulmonary emboli in the lung bases. The patient's respiratory status has continued to decline. He has been on BiPAP intermittently since 4:26 a.m. This morning, he became apneic and bradycardic, and was intubated. This was a difficult intubation due to patient's prior cervical neck disease and some trauma was sustained. He was successfully intubated. Postprocedure chest x-ray revealed collapse of the right lung with extensive subcutaneous air in the mediastinum, neck, and axilla. Emergent chest tube was placed by Dr. London Gregorio. PHYSICAL EXAMINATION: General: Reveals an intubated, white male on mechanical ventilation. He currently is on Terrance-Synephrine for hypotension. Blood pressure 108/42, heart rate 73, respiratory rate 16, oxygen saturation 93% on 100% FiO2. HEENT: Pupils are equal. Oropharynx appears clear with residual blood noted. There are some bloody secretions suctioned from the endotracheal tube. Neck: Supple with subcutaneous air noted bilaterally. Chest: Reveals good air entry bilaterally with subcutaneous air around the right-sided chest tube. Cardiac Examination: S1-S2. Abdomen: Obese and soft. Extremities: Reveal edema in the arms and legs. LABORATORIES: Postprocedure chest x-ray reveals re-expansion of the right lung. There continues to be infiltrates in the right lung base. White blood count 11.3, hemoglobin 8.9, platelet count 267,000. Post intubation arterial blood gas has been ordered. Last immunoglobulin level was checked on 12/11/2018 and was adequate at 735. EGD performed 12/16/2018 revealed a linear bleeding ulcer in the duodenum. IMPRESSION: A 78-year-old with: 1. Acute hypoxemic and acute hypercapnic respiratory failure. 2. Pneumothorax with subcutaneous emphysema. 3. Immunosuppression. 4. Myasthenia gravis. 5. Recent identification of a bleeding duodenal ulcer. 6. Pulmonary embolus. 7. Avascular necrosis of the hip. 8. Diabetes mellitus. 9. Chronic pain syndrome. 10. Hemodynamic shock. DISCUSSION: A complicated, 78-year-old, white male with multiple active medical issues outlined above, several with competing treatment plans. The patient has myasthenia gravis which requires immunosuppression but has an active infection which recommends against immunosuppression. The patient has evidence of a duodenal ulcer with bleeding which recommends cessation of anticoagulation but he has evidence of pulmonary emboli which requires anticoagulation. There will be no perfect treatment regimen for this patient given his multiple issues outlined above. Each issue will need to be mitigated as best as possible. RECOMMENDATIONS: 1. Continue full ventilatory support for acute respiratory failure. Sputum culture will be obtained for possible pneumonia. 2. Chest tube management per Dr. London Gregorio. 3. Recommend holding immunosuppression. The patient is on mechanical ventilation and if he develops weakness related to his myasthenia gravis, this can be mitigated with the ventilator. 4. Recommend beginning anticoagulation later this evening. Would not give a full anticoagulation dose but will give it at a minimum DVT prophylaxis. We will likely place patient on Lovenox 30 to 40 mg q.12 hours. 5. Check venous Dopplers of the lower extremities to see the amount of clot burden. If he has extensive clot burden, we will need to decide if a filter is appropriate. 6. Any surgical procedure will be on hold as outlined by Dr. Wilmar Mackay. 7. Continue monitoring diabetes mellitus in an attempt to keep blood sugars less than 150. 8. We will use propofol and p.r.n. morphine if needed for pain. 9. Continue Terrance-Synephrine for hypotensive shock. We will add Levophed if necessary. We will consider cautious fluid boluses. 10. Issues were discussed with his at the bedside. She is aware that he has multiple issues with competing treatment strategies. It is not clear that he will survive this hospitalization. Time spent critical care: 90+minutes cc: MD Jonathan Hannon DO MTDD
[2018-12-21] MEDS: COZAAR PO SCH (10:21)
[2018-12-21] MEDS: MUCINEX PO SCH (10:21)
--- NOTE | 2018-12-21 12:35 | GENERAL SURGERY CONSULTATION ---
DATE: 12/21/2018 HISTORY OF PRESENT ILLNESS: This is a 78-year-old gentleman known to me for previous treatment of venous insufficiency and venous ulcers. He is a patient Dr. Martinez. He has been admitted for the last several days for complications associated with myasthenia gravis, avascular necrosis of the hip and has been evaluated. He has developed worsening pulmonary decline. He has also been found to have pulmonary emboli and was intubated emergently this morning. The intubation was uneventful, but he developed subcutaneous emphysema. CT scan showed a large right pneumothorax. I was consulted for chest tube placement. He was having progressive hypoxia, saturations in the 70s, tachycardia and hemodynamic instability consistent with a tension pneumothorax. MEDICAL HISTORY: Myasthenia. He has history of DVT and recent diagnosed pulmonary embolus. Avascular necrosis of the hip. Diabetes. Chronic pain. General deconditioning. Acute hypoxemic and hypercapnic respiratory failure. SURGICAL HISTORY: He has had a radiofrequency ablation of lower extremity. I do not recall that he had chest procedures done in the past. He has had transurethral prostatectomy, cholecystectomy, knee surgery, neck surgery, laminectomy, cervical fusion. FAMILY HISTORY: Reviewed and noncontributory. SOCIAL HISTORY: No tobacco, alcohol, or drugs. He is on a history of a anticoagulants for his Deep venous thromboses. He is on aspirin currently. REVIEW OF SYSTEMS: Otherwise unobtainable given his intubated state. PHYSICAL EXAMINATION: Vitals: On examination, currently he is endotracheally intubated with saturations in the 70s. Blood pressures, systolics 80s to 90s. I do not see any fevers documented, oxygen saturation 70% on 100% inspired FiO2, PEEP of 10. Neck: He has subcutaneous air and crepitans of his neck and chest. Abdomen: Protuberant, soft. Cardiovascular: Normal rate. Lower Extremities: Well perfused. Neurologic: He is sedated and paralyzed. LABORATORIES: I reviewed his laboratories. His white count is 11, hematocrit 27. INR at admission was 0.96. ABG shows hypoxia with elevated CO2. Creatinine 0.9. Glucose 133. LFTs are normal. IMAGING: Chest x-ray shows a large right pneumothorax with impending mediastinal shift. He also has diffuse hazy opacities of his left chest. ASSESSMENT AND PLAN: A 78-year-old gentleman with right-sided pneumothorax, impending tension physiology following endotracheal intubation for respiratory decline. We will place emergent chest tube. Operative note to follow. I will talk to his family that this is placed emergently in his acute hemodynamic instability and respiratory failure. cc: MD Jonathan Zhou, DO
--- NOTE | 2018-12-21 12:39 | OPERATIVE NOTE ---
PROCEDURE DATE: 12/21/2018 PREOPERATIVE DIAGNOSIS: Right tension pneumothorax. POSTOPERATIVE DIAGNOSIS: Right tension pneumothorax. PROCEDURE PERFORMED: Placement of right 32-Namibian chest tube. ESTIMATED BLOOD LOSS: Less than 5 mL. COMPLICATIONS: None. INDICATIONS: A 78-year-old gentleman who was intubated for respiratory failure this morning, and developed right-sided pneumothorax with subcutaneous air. OPERATIVE FINDINGS: There was a large holbrook of air with dramatic improvement in his oxygen saturation and hypotension following placement of a tube. No air leak noted after placement of the tube, and no significant effusion. Risks benefits, and alternatives discussion was unobtainable as the patient was acutely declining clinically, and for fears of impending cardiovascular collapse. DESCRIPTION OF PROCEDURE: His right chest was prepped with chlorhexidine and draped using sterile towels. A time-out was performed, and we all agreed on the site after reviewing his images. An incision was made in the inframammary fold and was bluntly carried down to the rib. The chest was entered over the top of the rib, and a large holbrook of air was obtained. This has significantly improved both his oxygen saturations and hypotension. A 32-Namibian chest tube was placed posterior and apically, and was secured with 2-0 silk sutures. Dressing was applied and was placed to Pleur- evac device. No air leak was noted when placed to suction. His post chest x-ray showed good resolution of the pneumothorax. We will defer further management of his overall medical condition to Dr. Bernardo and Dr. Van. We will discuss this matter with his when she is available. cc: MD Jonathan Zhou DO
--- NOTE | 2018-12-21 14:05 | GASTROENTEROLOGY PROGRESS NOTE ---
DATE: 12/21/2018 SUBJECTIVE: Events over the weekend were reviewed. The patient has had respiratory decline and had to be intubated this morning. He was also found to have large pneumothorax after intubation and a chest tube was placed. Currently, the patient is on mechanical ventilation. OBJECTIVE: Vital Signs: Temperature 97.8 degrees, pulse 53, respirations 14, blood pressure 120/49. General: The patient was with eyes closed. Intubated on mechanical ventilation. He has also had to have a chest tube placed due to the pneumothorax. LABORATORY DATA: Hematology: WBC 11.28, hemoglobin 8.9, hematocrit 27.9, MCV 93.9. Chemistry: Sodium 147, potassium 4.6, chloride 110, BUN 56, creatinine 0.9, glucose 133. ASSESSMENT AND PLAN: 1. Respiratory failure with intubation, now on mechanical ventilation. 2. Pneumothorax with chest tube placed. 3. Findings of pulmonary embolus with history of deep venous thrombosis. Continue current management. 4. Recent upper gastrointestinal bleeding with bleeding duodenal ulcer that was treated. 5. Anemia. Will continue to follow. He has had documented old blood in the stool. Will continue to monitor hemoglobin and hematocrit. At this time, he is unstable to proceed with repeat EGD. If he starts having active bleeding or if he is unable to maintain his hemoglobin and hematocrit, would have to proceed with urgent EGD. Otherwise will continue to follow. Continue PPI. Further plans will be made according to his progress. I have discussed this case with Dr. Falk. Dictated by MICHAEL Bustamante for Corby Falk MD cc: MICHAEL Hawley MD Jeffrey A. Johnson, DO
[2018-12-21] MEDS: LOVENOX SUBQ SCH (17:54)
--- NOTE | 2018-12-21 19:05 | PROGRESS NOTE ---
DATE: 12/21/2018 SUBJECTIVE: Ventilatory day number 1. Pressor day number 1. Mr. Alcantara had an acute unresponsive episode this morning with need for emergent intubation. He also was in need of some additional blood pressure support and has been started on vasopressors. Throughout the day, he has maintained adequate oxygenation; however, he has started to drift bradycardic. He is currently at a heart rate of 44. After additional discussion with the , it has been determined that he would be best served by no further heroic measures at this time based on the complex nature of his clinical course, and competing needs for treatment, all of which have their own risk/benefit scenarios. I appreciate Dr. Gregorio's assistance earlier this morning with chest tube placement, and Dr. Bernardo's astute clinical evaluation and recommendations. OBJECTIVE: Patient's recent set of vitals: Blood pressure 108/42, respirations at 15. Patient is on full ventilatory support. His pulse rate is 56; however, the monitor shows it at 45. Input and outputs are at 1860 in and 250 out, for +1610. Cumulatively, during this hospitalization, he is 26 L in and 25 L out, for +493 mL. Additional notes for today, including GI and general surgery consultations, are reviewed. I would not favor any additional transfusion at this time. We will offer maximal vasopressor support and follow clinically. It will be very fortunate, but unlikely, that he will survive the night based on his clinical deterioration over the past 12 hours. He is currently Do Not Resuscitate. The staff has been advised to contact me at home should the patient spontaneously pass between now and tomorrow morning. No further issues at this time. Note is dictated on the evening of rounds. cc: Jonathan Van DO
[2018-12-21] MEDS: LIPITOR PO SCH (22:30)
[2018-12-22] MEDS: AMPICILLIN 2 GM/NS 2 GM/100 ML IVPB IV SCH ×4 (03:31→21:00)
[2018-12-22] MEDS: DIPRIVAN 1% 1,000 MG/100 ML BOTTLE IV SCH ×6 (04:55→21:00)
[2018-12-22 05:09] LABS: ALLEN TEST YES; BE 3.1 mmoll (-3.0-3.0); BLOOD TYPE ARTERIAL; HCO3-(ACT) 27.4 mmoll (20.0-26.0); METHB 1.2 % (0.0-1.5); O2(CT) 9.8 mL/dL (15.0-23.0); O2HB 96.1 % (95.0-99.0); PCO2(98.6) 32 mmHg (35-45); PO2(98.6) 107 mmHg (60-100); SAMPLE BLOOD; SAO2 98.2 % (95.0-100.0); SRATE 14 BPM; THB 7.1 g/dL (11.5-17.4); TVOL 600 mL; pH(98.6) 7.52 (7.35-7.45)
[2018-12-22 05:12] LABS: MODALITY VENTILATOR
[2018-12-22 06:27] LABS: AGAP 10; ALB/GLOB RATIO 0.9; ALBUMIN 2.2 g/dL (3.5-5.0); ALKALINE PHOSPHATASE 33 U/L (32-122); BUN 62 mg/dL (8-22); CALCIUM 7.5 mg/dL (8.8-10.2); CHLORIDE 108 mmol/L (98-107); COSMO 304; CREATININE 1.1 mg/dL (0.7-1.2); ESTIMATED GFR > 60; GLUCOSE 128 mg/dL (70-104); GOT 11 U/L (10-34); GPT 12 U/L (10-44); POTASSIUM 3.7 mmol/L (3.5-5.1); SODIUM 143 mmol/L (136-145); TCO2 25 mmol/L (25-35); TOTAL BILIRUBIN 0.45 mg/dL (0.20-1.00); TOTAL PROTEIN 4.6 g/dL (6.3-8.3)
--- NOTE | 2018-12-22 06:39 | Diag Imaging Result Doc PS360 ---
CHEST-PORTABLE - 12/22/2018 INDICATION: respiratory failure COMPARISON: 12/21/2018 FINDINGS: Support lines and tubes are stable. There has been significant improvement in the subcutaneous gas. No visible pneumothorax. There is cardiomegaly. Stable pulmonary vascular congestion. Stable bibasilar infiltrates. IMPRESSION: Improvement in the subcutaneous emphysema. Otherwise no change from prior. Electronically signed by Manuel Virgen 12/22/2018 6:36 AM
[2018-12-22] MEDS: SOLU-MEDROL IV SCH ×4 (06:40→17:58)
[2018-12-22] MEDS: LOVENOX SUBQ SCH ×2 (06:40→17:43)
[2018-12-22 06:41] LABS: MAGNESIUM 2.4 mg/dL (1.5-2.7); PHOSPHORUS 3.5 mg/dL (2.7-4.5)
[2018-12-22 07:03] LABS: URINE SOURCE CATH
[2018-12-22 07:09] LABS: BILIRUBIN URINE NEGATIVE (NEGATIVE); BLOOD URINE LARGE (NEGATIVE); COLOR ORANGE; GLUCOSE URINE NEGATIVE (NEGATIVE); KETONE URINE NEGATIVE (NEGATIVE); LEUKOCYTES URINE NEGATIVE (NEGATIVE); NITRITE URINE NEGATIVE (NEGATIVE); PH URINE 5.5; PROTEIN URINE 30 mg/dL (NEGATIVE); SP GRAVITY URINE 1.021; TURBIDITY URINE HAZY (CLEAR); UR EPITHELIAL CELLS <10 /HPF (<10); URINE BACTERIA NEGATIVE /HPF; URINE RBC TNTC /HPF (<10); URINE WBC <10 /HPF (<10); UROBILINOGEN URINE NORMAL (NORMAL)
[2018-12-22 07:16] LABS: HEMATOCRIT 25.7 % (42.0-52.0); HEMOGLOBIN 7.9 g/dL (14.0-18.0); MCH 29.5 PG (27-31); MCHC 30.7 g/dL (33-37); MCV 95.9 FL (81-99); MPV 11.3 FL (7.4-10.4); RBC 2.68 XMIL (4.7-6.1); RDW 16.9 % (11.5-14.5); WBC 7.02 X1000 (4.8-10.8)
--- NOTE | 2018-12-22 07:40 | PROGRESS NOTE ---
DATE: 12/22/2018 This is ventilatory day #2. He is currently not on vasopressors at this time secondary to hypotension precipitated by a sedating agent. We discussed more sedation at the expense of his pressure. I am encouraged that he survived the night despite his critical status last night when I left. OBJECTIVE: VITAL SIGNS: Blood pressure 132/60, mapped at 78 saturating 96% on ventilator with a heart rate of 66. Settings are reviewed with rate of 14, FiO2 down from 100% to 60, tidal volume at 600, PEEP at 5. Additional labs available for this morning including an ABG. A little bit of metabolic alkalosis developing. PCO2 at 32, PO2 at 107. This may facilitate decreasing the rate and/or the FiO2. I deferred to Dr. Bernardo in this regard. Sodium at 143, potassium at 3.7, chloride 108, bicarb at 25, BUN and creatinine at 62, and 1.1. This is somewhat concerning and probably related to GI bleed with BUN climbing now from admission 17 to 62. This puts him at risk for hematological complications, altered mental status and pericardial disease. We will continue to follow in this regard. Blood sugars at 128 to 154, calcium slightly down at 7.5. Blood cultures from the are noted to be negative. Sputum culture obtained yesterday with gram-positive rafita, gram-positive cocci. He continues on ampicillin 2 g IV q.6 hours for positive history of enterococcus on admission approximately 12 days ago. There have been no additional positive blood or urine cultures. A repeat urine culture is pending from this morning. PHYSICAL EXAMINATION: General: Patient is partially sedated, able follow commands. He is ventilated and nonverbally communicative. Distant heart sounds without evidence of pericardial friction rub. Lungs: Appear clear. Abdomen: Appears soft with hypoactive bowel sounds. Extremities: Upper extremities are markedly edematous with bruising raising concern for long-term integrity of PICC line in the right upper extremity. The lower extremities with 1+ pretibial edema right greater than left. ROBERT hose remain in place. Report for a venous Doppler ultrasound is still pending but verbal report is such that there is extensive clot in the right lower extremity, likely source of pulmonary emboli. IMPRESSION: 1. A 78-year-old, complicated patient with gram-positive bacteremia, bleeding duodenal ulcer and acute respiratory failure resulting in need for mechanical ventilation as well as hypotension requiring support vasopressor agents. This all within the context of having a baseline myasthenia gravis and a history of avascular necrosis. From a cardiovascular standpoint he appears to be hemodynamically stable this morning. Not requiring any vasopressors secondary to less sedation. Bradycardia last night appears to be intervally resolved and we will continue to follow clinically in this regard. He does have a history of atherosclerotic coronary artery disease, by both calcium scoring and by cardiac cath and has been historically relegated to medical management. We will continue to follow clinically in this regard. Most recent cardiac echo dated consistent with normal ejection fraction, mild TR and high normal pulmonary pressures at 31 mmHg. No evidence of diastolic or systolic dysfunction. 2. From a GI standpoint, history of duodenal ulcer status post some intervention with vasoconstrictor and surgical stapling as well as 4 units of transfused blood. Patient appears to continue to be oozing with melanous soft and liquid stool. A rectal tube was placed yesterday for hygiene and care issues. Discussions with GI demonstrate lack of benefit for further intervention at this time with a repeat EGD to ensure no additional intervention would be indicated. He continues on IV PPI and supportive measures. 3. From an infectious disease standpoint no further positive blood cultures since admission with a single positive blood culture for enterococcus. Infectious Disease historically has been involved and consulted recommending ampicillin q.6 hours. He continues to be afebrile and we are following clinically in this regard. Sputum culture from 12/21/2018 is pending. The presence of rods and cocci, as well as occasional yeast may necessitate broadening antibiotic coverage. This would be at best problematic, and based on the patient's current clinical state this might result in unintentional Clostridium difficile infection which would likely be fatal in this tenuous patient. 4. Hematology/oncology. Patient with history of extensive right lower extremity deep venous thrombosis now complicated by pulmonary embolism secondary to recent gastrointestinal bleed and anemia. He is a contraindication to aggressive anticoagulation; however, it is noted that anticoagulation was recommended by Pulmonary Critical Care and was started last night 40 mg q.12 hours. DISPOSITION: The patient remains critical at best, continues to require ventilatory management. I have spoken personally to the this morning. He continues to be a DNR. We will be consulting with General surgery for central venous line placement secondary to deteriorating status peripheral IVs in the upper extremities. No new and/or additional recommendations at this time. Note is dictated on the morning of rounds. cc: Jonathan Van DO
[2018-12-22] MEDS: TYLENOL PO SCH ×3 (09:12→16:17)
[2018-12-22] MEDS: CRESTOR PO SCH (09:12)
[2018-12-22] MEDS: BYSTOLIC PO SCH (09:13)
[2018-12-22] MEDS: MESTINON PO SCH ×4 (09:13→20:59)
[2018-12-22] MEDS: GLUCOPHAGE PO SCH (09:13)
[2018-12-22] MEDS: PROTONIX IV SCH ×2 (09:13→20:59)
[2018-12-22] MEDS: PREDNISONE PO SCH (09:13)
[2018-12-22] MEDS: COZAAR PO SCH (09:14)
[2018-12-22] MEDS: SODIUM CHLORIDE 0.9% INJ SCH ×2 (09:14→20:59)
--- NOTE | 2018-12-22 13:27 | GASTROENTEROLOGY PROGRESS NOTE ---
DATE: 12/22/2018 SUBJECTIVE: Patient remains on mechanical ventilation. He has a large pneumothorax after intubation and chest tube was placed. He currently has a rectal tube in place with dark/maroon liquid stool . Hemoglobin and hematocrit today with slight drop from yesterday 7.9 and 25.7. OBJECTIVE: Vital Signs: Temperature 97.4 degrees, pulse 58, respirations 16, blood pressure 109/52. General: Patient is intubated. He does have a Diprivan drip in place. I believe they were able to hold vasopressors. LABORATORY: Hematology. WBC 7.02, hemoglobin 7.9, hematocrit 25.7, MCV 95.9, platelet 194,000. Chemistry. Sodium 143, potassium 3.7, chloride 108, CO2 25, BUN 62, creatinine 1.1, glucose 128. ASSESSMENT AND PLAN: 1. Respiratory failure on mechanical ventilation. 2. Pneumothorax. 3. Pulmonary embolus and history of deep vein thrombosis on Lovenox. 4. Recent upper gastrointestinal bleeding with bleeding duodenal ulcer that was treated. 5. Anemia. Continue to monitor and transfuse packed red blood cells as needed. Continue PPI. Patient is at high risk to repeat EGD. Would continue current management. Further plans will be made according to his progress. I have discussed this case with Dr. Falk. Dictated by MICHAEL Bustamante for Corby Falk MD cc: MICHAEL Hawley MD Jeffrey A. Johnson, DO MTDD
[2018-12-22] MEDS: MAXIPIME 1 GM in NS 50 ML IV SCH (13:42)
--- NOTE | 2018-12-22 13:43 | Diag Imaging Result Doc PS360 ---
CHEST-PORTABLE - 12/22/2018 1:30 PM INDICATION: Verify CVL placement COMPARISON: 5:26 AM FINDINGS: There is a new subclavian right central line with the catheter tip somewhere in the right neck off the top of the film. Stable appearing right PICC line. Stable endotracheal tube, nasogastric tube, and right chest tube. IMPRESSION: Right central line tip is up in the right side of the neck. Electronically signed by Manuel Virgen 12/22/2018 1:40 PM
--- NOTE | 2018-12-22 13:48 | PULMONOLOGY PROGRESS NOTE ---
DATE: 12/22/2018 SUBJECTIVE: The patient is sedated. He has been afebrile for the last 24 hours. He is off vasopressors. VITAL SIGNS: Blood pressure 119/57, heart rate 61, respiratory rate 15, oxygen saturation 95% on 60% FiO2. INTERIM EVENTS: Patient pulled Rodriguez catheter, requiring replacement. No blood noted in the Rodriguez catheter bag. OBJECTIVE: HEENT: Pupils are equal. Oropharynx appears clear. Neck is supple. Chest reveals coarse rhonchi bilaterally. Cardiac: S1, S2. Abdomen is soft with diminished bowel sounds. Extremities are without edema. Chest tube is in the right hemithorax. No air leak detected. DIAGNOSTIC STUDIES: Chest x-ray reveals bilateral pulmonary infiltrates, cardiomegaly, mild vascular congestion, chest tube in the right hemithorax. Arterial blood gas reveals a pH 7.52, pCO2 of 32, PO2 of 107. White blood count 7.02, hemoglobin 7.9, platelet count 194,000. Sodium 143, potassium 3.7, chloride 108, bicarbonate 25, BUN 62, creatinine 1.1. Venous Dopplers in the lower extremity revealed extensive blood clot in the leg. Sputum cultures are growing a gram-negative rafita. IMPRESSION: A 78-year-old with: 1. Acute hypoxemic and hypercapnic respiratory failure. 2. Pneumothorax. 3. Gram-negative pneumonia. 4. Immunosuppression. 5. Myasthenia gravis. 6. Protein-calorie malnutrition. 7. Recent bleeding duodenal ulcer. 8. Recent pulmonary embolus. 9. Recently diagnosed deep vein thrombosis of the leg. 10. Diabetes mellitus. 11. Avascular necrosis of the femoral head with chronic pain. 12. Resolving shock. PLAN: 1. Continue full ventilatory support. We will wean oxygen as tolerated. 2. Initiate cefepime for gram-negative pneumonia. This can be adjusted by Dr. Driscoll, as he has been following for the enterococcal infection. 3. Continue Lovenox 40 mg q.12 h. unless he has active signs of bleeding. 4. Chest tube management per Dr. Gregorio. 5. We will initiate tube feeds for protein-calorie malnutrition. 6. Consider IVC filter placement with extensive clot in the leg, pulmonary emboli, and blood pressure at risk for decompensation if he has a major pulmonary embolus. 7. Continue sedation. 8. Prognosis is poor. End-of-life discussions are being held between Dr. Van and Mr. Alcantara's . If he were to have a major cardiac or pulmonary event, he would be allowed to have a natural . Time spent in critical care management: 30+ minutes cc: MD Jonathan Hannon, MTDNikita
[2018-12-22 17:01] LABS: BASO# 0.01 X1000 (0.0-0.2); BASO% 0.2 % (0.0-0.8); HEMATOCRIT 22.6 % (42.0-52.0); IMM GRAN# 0.02 X1000 (0.0-0.04); IMM GRAN% 0.3 % (0.0-0.5); LYMPH# 0.17 X1000 (1.2-3.4); LYMPH% 2.8 % (20.5-51.1); MCH 29.8 PG (27-31); MCV 96.2 FL (81-99); MONO# 0.17 X1000 (0.11-0.59); MONO% 2.8 % (1.7-9.3); MPV 10.8 FL (7.4-10.4); NEUT# 5.71 X1000 (1.4-6.5); NEUT% 93.9 % (42.2-75.2); PLT 205 X1000 (130-400); RBC 2.35 XMIL (4.7-6.1); RDW 16.8 % (11.5-14.5); WBC 6.08 X1000 (4.8-10.8)
[2018-12-22 17:38] LABS: ANISOCYTOSIS 3+; BANDS 4 % (0-1); HYPOCHROM 2+; LYMPHS 1 % (21-51); SEGS 95 % (42-75)
--- NOTE | 2018-12-22 18:07 | GENERAL SURGERY PROGRESS NOTE ---
DATE: 12/22/2018 SUBJECTIVE: Clinical events were about the same overnight. His chest seems to be well expanded on the x-ray. Hemodynamically and from a pulmonary standpoint improving somewhat. OBJECTIVE: On exam his right chest tube is at -20 suction. There is no air leak, minimal output. DIAGNOSTIC DATA: I reviewed his chest x-ray and his labs. ASSESSMENT AND PLAN: A 78-year-old gentleman with a spontaneous pneumothorax on the right after endotracheal intubation. His chest tube will continue today with positive-pressure intubation. We will plan to water-seal maybe tomorrow. Dr. Van has requested central line placement. I have discussed the risks and benefits of this with his . She consents. Operative note to follow. cc: MD Jonathan Zhou,
--- NOTE | 2018-12-22 18:21 | OPERATIVE NOTE ---
PROCEDURE DATE: 12/22/2018 PREOPERATIVE DIAGNOSIS: Respiratory failure with hemodynamic instability. POSTOPERATIVE DIAGNOSIS: Respiratory failure with hemodynamic instability. PROCEDURE PERFORMED: Right subclavian vein central line placement. OPERATIVE NOTE: Risks, benefits and alternatives were discussed. The patient's consented to the procedure, as he is intubated. He was placed in Trendelenburg. The right chest was prepped with chlorhexidine and draped in the usual fashion. After a time-out, a drape was placed. We accessed the subclavian vein on the first pass. Dark nonpulsatile venous blood was noted on return. The wire was threaded easily. A skin arvind was made. The tract was dilated and a 7- Thai triple-lumen catheter was advanced and secured. All ports withdrew blood and flushed without resistance. Dressing was applied. He tolerated it well. No complication. We will get a chest x-ray. cc: MD Jonathan Zhou DO
[2018-12-22] MEDS: LIPITOR PO SCH (20:59)
[2018-12-23] MEDS: DIPRIVAN 1% 1,000 MG/100 ML BOTTLE IV SCH ×4 (00:42→10:38)
[2018-12-23] MEDS: MAXIPIME 1 GM in NS 50 ML IV SCH (01:07)
[2018-12-23] MEDS: SOLU-MEDROL IV SCH ×2 (01:08→09:16)
[2018-12-23 05:02] LABS: ALLEN TEST YES; BE -1.2 mmoll (-3.0-3.0); BLOOD TYPE ARTERIAL; METHB 0.4 % (0.0-1.5); O2(CT) 7.6 mL/dL (15.0-23.0); O2HB 97.6 % (95.0-99.0); PCO2(98.6) 29 mmHg (35-45); PO2(98.6) 124 mmHg (60-100); SAMPLE BLOOD; SAO2 99.6 % (95.0-100.0); SRATE 14 BPM; THB 5.3 g/dL (11.5-17.4); TVOL 600 mL; pH(98.6) 7.49 (7.35-7.45)
[2018-12-23 05:03] LABS: MODALITY VENTILATOR
[2018-12-23 06:20] LABS: ALB/GLOB RATIO 0.9; ALBUMIN 2.1 g/dL (3.5-5.0); CALCIUM 7.2 mg/dL (8.8-10.2); CREATININE 1.2 mg/dL (0.7-1.2); HEMATOCRIT 19.6 % (42.0-52.0); HEMOGLOBIN 6.2 g/dL (14.0-18.0); MCHC 31.6 g/dL (33-37); MPV 12.1 FL (7.4-10.4); POTASSIUM 3.6 mmol/L (3.5-5.1); RDW 16.9 % (11.5-14.5); TOTAL BILIRUBIN 0.25 mg/dL (0.20-1.00); TOTAL PROTEIN 4.5 g/dL (6.3-8.3); WBC 8.05 X1000 (4.8-10.8)
[2018-12-23] MEDS: LOVENOX SUBQ SCH (06:43)
--- NOTE | 2018-12-23 06:48 | Diag Imaging Result Doc PS360 ---
CHEST-PORTABLE - 12/23/2018 INDICATION: respiratory failure COMPARISON: 12/22/2018 FINDINGS: Support lines and tubes are stable. Stable volume loss of the right lung. There has been improvement in the infiltrate at the left lower lobe. No new infiltrates or abnormalities. Stable cardiomegaly. IMPRESSION: Improved aeration of the left lung base. No new abnormalities. Electronically signed by Manuel Virgen 12/23/2018 6:45 AM
--- NOTE | 2018-12-23 07:33 | PROGRESS NOTE ---
DATE: 12/23/2018 INDICATION FOR PROLONGED HOSPITALIZATION: Ongoing ventilation secondary to acute respiratory failure secondary to spontaneous pneumothorax following initiation of BiPAP. SUBJECTIVE: Mr. Alcantara's course has been quite problematic and eventful. I spent approximately 30 minutes on the phone last night with the recanting the day's events. Yesterday, he underwent a central line placement and continues on anticoagulation for right lower extremity venous thrombosis complicated by pulmonary emboli. Perhaps, the most concerning issue over the past 12 to 24 hours is his falling hematocrit likely due to GI bleeding. We have already discussed with GI the risk and benefit ratio, and at this point the risk of re-evaluation with EGD far outweighs any potential benefit. He continues on anticoagulation for clot, however, I think that this certainly is exacerbating his anemia. I did discuss with the last night in detail the possibility of transfusing him, but not indefinitely and the possibility of putting in a Skylar filter to protect him from any catastrophic and life ending emboli. All of the events over the past 2 weeks have been very sudden, and the continues to try to process this independently. She has no children and no immediate family to talk with. This has been very difficult for her. This morning's vitals, blood pressure 116/66, saturating 100% on ventilatory support with a heart rate at 79. He is in sinus rhythm. He continues with a Rodriguez as well as a rectal tube. I's and O's over the past 24 hours, 3163 in and 1275 out for +1.88 L and 2213 in and 1650 out for +563 L. Cumulatively now, he is 1.13 L up for this hospitalization. OBJECTIVE: On exam, patient is sedated and intubated. He appears to be resting comfortably. Central line placement in the right supraclavicular area is noted. Cardiovascular: Regular rate and rhythm. Lungs: Clear. Abdomen: Soft with hypoactive bowel sounds. Extremities: 1+ pitting edema in the right lower extremity. Neurological: Cranial nerves 2-12 are not assessed secondary to patient's sedation and intubation. LABORATORY: This morning showing a falling hemoglobin and hematocrit with hemoglobin at 6.2, hematocrit at 19.6. Over the past 3 days, the hemoglobin has fallen from 9.3, to 8.9 to 7.0, and now 6.2. The hematocrit has fallen from 29.3 to 27.9 to 22.6 to 19.6. Blood gas this morning on ventilatory support with respiratory rate at 14 shows a pH of 7.49, pCO2 at 29, and PO2 124. Oxygen saturation at 99%. Settings at 60% FiO2 tidal volume 600, PEEP at 5. Chemistry this morning showing a sodium at 147, chloride at 114, bicarb at 22, and BUN at 70. Creatinine continues to rise at 1.2. Glucose ranging between 128 and 141. Calcium at 7.2. Cultures are reviewed. Blood cultures continue to be negative, however, sputum culture from 2 days ago showing gram-negative rafita. Antibiotic coverage has been increased per Pulmonary Critical Care. Urine culture is pending at this time. IMPRESSION: A 78-year-old with multiple medical problems including history of enterococcus bacteremia, history of bleeding ulcer status post 4 units of blood transfused with falling hematocrit suspect for ongoing bleeding. Spontaneous pneumothorax after initiation of BiPAP resulting in need for chest tube. Myasthenia gravis putting patient at increased risk for respiratory distress and failure now ventilated. History of right lower extremity thrombosis complicated by pulmonary embolism further complicating overall respiratory status. I did discuss with the last night the possibility of putting in a Skylar filter. I think that this procedure would be extremely risky, and considering our inability at this point to safely re- evaluate for ongoing hemorrhage from the duodenal ulcer, I am uncertain as to whether this would in the end offer any significant clinical benefit. The patient continues to remain at risk for a massive pulmonary embolism which would likely be life ending. His rising BUN and rising creatinine put him at risk for uremic encephalopathy. He continues to be sedated while on ventilation. It is difficult to determine whether this is primarily iatrogenic mediated sedation or renal mediated. I do not feel that transfusing the patient with patient continuing to ooze is again in the patient's best interest, and I will express my reservations this morning to the . I do think that palliative care is probably the best option for the patient at this point secondary to multi-system organ failure and high risk for terminal prognosis. No further issues at this time. Note is dictated on the morning of rounds. cc: Jonathan Van DO
[2018-12-23] MEDS ORDERED: D5W 1,000 ML IV SCH (08:30)
[2018-12-23] MEDS: AMPICILLIN 2 GM/NS 2 GM/100 ML IVPB IV SCH ×2 (09:15→09:17)
[2018-12-23] MEDS: PROTONIX IV SCH (09:16)
--- NOTE | 2018-12-23 10:52 | PULMONOLOGY PROGRESS NOTE ---
DATE: 12/23/2018 SUBJECTIVE: The patient is sedated and appears comfortable on mechanical ventilation. He is currently on no vasopressors. The patient currently on 60% FiO2. OBJECTIVE: Vital Signs: Blood pressure 112/54, heart rate 77, respiratory rate 21, oxygen saturation 100%. HEENT: Pupils are equal and reactive. Oropharynx appears clear. Neck: Neck is supple. Chest: Reveals coarse rhonchi bilaterally. Cardiac exam: Distant heart sounds. Normal S1, normal S2. Abdomen: Soft. Occasional bowel sounds may be present. Extremities: Reveal generalized edema. LABORATORIES/X-RAY: Chest x-ray reveals some improved aeration at the left base. Arterial blood gas reveals a pH of 7.49, pCO2 of 29, PO2 of 124. White blood count 8.05, hemoglobin 6.2, platelet count 208,000. Sodium 147, potassium 3.6, chloride 114, bicarbonate 22. BUN 70, creatinine 1.2, albumin 2.1. IMPRESSION: 1. A 78-year-old with acute hypoxemic respiratory failure. 2. Pneumothorax, status post chest tube placement. 3. Gram-negative pneumonia. 4. Myasthenia gravis. 5. Immunosuppression. 6. Gastrointestinal bleeding from duodenal ulcer with ongoing drop in hematocrit. 7. Recent diagnosis of pulmonary embolus. 8. Deep vein thrombosis. 9. Diabetes mellitus. 10. 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 DISCUSSION: A 78-year-old with multiple medical issues outlined above. Several issues have competing treatments, including the need for immunosuppression associated with myasthenia gravis, and the need for enhanced immune system with chronic infections, the need for anticoagulation with a deep vein thrombosis and pulmonary emboli, but the need to reverse anticoagulation with gastrointestinal bleeding. The patient is 78 and will likely be in the bed for several more weeks. It is unlikely that he will improve to the point that he can have his hip repaired to relieve his pain. His prognosis remains extremely poor. PLAN: 1. Continue ventilatory support. 2. Continue current antibiotics. 3. Discussed transfusions with Dr. Jonathan Van. 4. Agree with plans not to place IVC filter placement. 5. Prognosis is poor. is at the bedside. There are ongoing discussions considering withdrawal of support given his poor prognosis. Time spent critical care management: 30+ minutes cc: MD Jonathan Hannon, DO CHLOED
[2018-12-23] MEDS ORDERED: ATROPINE 1 % OPHTH SOLN SL PRN (11:32)
[2018-12-23] MEDS ORDERED: TYLENOL PR PRN (11:32)
[2018-12-23] MEDS: MORPHINE IV PRN ×4 (13:32→17:56)
[2018-12-23] MEDS: ATIVAN IV PRN ×4 (13:32→17:55)
[2018-12-23] MEDS: BYSTOLIC PO SCH (13:36)
[2018-12-23] MEDS: COZAAR PO SCH (13:37)
[2018-12-23] MEDS: TYLENOL PO SCH (13:37)
[2018-12-23] MEDS: MESTINON PO SCH (13:38)
[2018-12-23] MEDS: CRESTOR PO SCH (13:38)
--- NOTE | 2018-12-23 14:39 | GASTROENTEROLOGY PROGRESS NOTE ---
DATE: 12/23/2018 SUBJECTIVE: Patient continues to be on mechanical ventilation at present time. I believe that family has had a long discussion with Dr. Van and Dr. Bernardo. There has been decision made to withdraw aggressive care and proceed with palliative care. I have spoken with the . GI will be available as needed. We will sign off. I have discussed this case with Dr. Falk. Dictated by MICHAEL Bustamante for Corby Falk MD cc: MICHAEL Hawley MD Jeffrey A. Johnson, DO
[2018-12-23 16:44] VITALS: BP 164/74
--- NOTE | 2018-12-23 17:41 | PROGRESS NOTE ---
DATE: 12/23/2018 SUBJECTIVE: Mr. Alcantara now has been extubated as we moved towards palliative care. OBJECTIVE: Vital signs: His current vitals, 168/72, saturating 92% on a Ventimask, with a heart rate at 97. There is increasing ectopy noted as well. ASSESSMENT AND PLAN: He was extubated approximately 40 minutes ago. We have elected to move him to a private room up on the floor and continue with palliative measures. I suspect that with his multisystem organ failure and multiple comorbidities germane to this hospitalization that he will spontaneously pass within the next 12 to 24 hours. Should he linger, we will continue with palliative care. I have advised the that I will return this evening when he passes to offer my condolences and to provide documentation for the medical record. The understands the course of treatment and plan. No further issues at this time. Note is dictated on the evening of rounds. cc: Jonathan Van,
[2018-12-23] MEDS ORDERED: PROTONIX PO SCH (19:00)
--- NOTE | 2018-12-24 14:23 | Extremity Venous Study ---
PROCEDURE NAME: Venous U/S Bilateral Legs - 12/21/2018 PROCEDURE: Bilateral lower extremity venous duplex study. DATE OF STUDY: 12/21/2018. REFERRING PHYSICIAN: Az. READING PHYSICIAN: Casi. BOX BUILDER: Mela. INDICATION: Pulmonary embolus on CT scan. Comparison study 11/12/2018. Of note, the patient has a history of bilateral greater saphenous vein ablation. FINDINGS: The right common femoral vein was compressible, patent without thrombus. The deep femoral vein appears to be compressible, patent without thrombus. There is nonocclusive thrombus in the proximal mid superficial femoral vein. The vein has decreased compressibility in the distal superficial femoral vein; however, thrombus becomes occlusive and this continues into the popliteal, posterior tibial and peroneal veins. The left common femoral, superficial femoral, deep femoral, popliteal, posterior tibial, and peroneal veins were imaged. They were compressible, patent without thrombus. INTERPRETATION: There is extensive occlusive and nonocclusive DVT involving the right superficial femoral, popliteal, posterior tibial and peroneal veins. Compared to the prior study on 11/20/2018, this is a new finding. cc: MD Lennox Lerner MD Jeffrey A. Johnson, DO
--- NOTE | 2018-12-24 14:48 | DISCHARGE SUMMARY ---
ADMISSION DATE: 12/10/2018 DISCHARGE DATE: 12/23/2018 DISCHARGE DIAGNOSES: 1. Sepsis secondary to Enterococcus faecalis, likely gastrointestinal source. 2. Acute upper duodenal ulcer status post refractory hemorrhage requiring 4 units of packed red blood cells without benefit. Status post surgical intervention with epinephrine and surgical clipping. 3. Acute respiratory failure secondary to spontaneous pneumothorax with positive pressure ventilation. 4. Acute respiratory failure secondary to pulmonary emboli, primary source right lower extremity. 5. Myasthenia gravis. 6. Avascular necrosis of the right hip with secondary collapse. 7. Multiple other comorbidities. PROCEDURES DURING ADMISSION: CT scan of the abdomen and pelvis for right hip evaluation in the presence of sepsis and 1+ positive blood culture. Findings consistent with diverticular disease, AVN of the right hip and nonobstructing bilateral stones. The presence of post surgical changes, as well as severe femoral arterial vascular disease is noted as well. Cardiac echo dated 12/22/2018 demonstrating no evidence of obvious valvular abnormalities. Ejection fraction estimated at 60%. Right hip aspiration on 12/14/2018 with fluid insufficient to meet septic joint criteria. EGD on 12/16/2018 findings consistent with acute GI bleed. Duodenal ulcer treated. As per clinic note, colonoscopy noted to be unremarkable all the way to the point of the terminal ileum. An addendum to the CT scan from admission dated 12/12/2018 demonstrating filling defects in the left lower lobe, arterial branches, and some smaller defects in the peripheral portions of the basilar branches on the right, not previously reported. These filling defects noted to not be present on a previous study dated 11/16/2018. Acute pulmonary embolism is suggested. CT scan of the neck on 12/[address] scan of the chest on 12/20 for progressive respiratory failure. CT scan of the neck failing to show any evidence of acute abnormality, and CT scan of the chest showing pulmonary edema with some nonspecific changes in the right lower lobe suggestive of infiltrate. PICC line placement. Right supraclavicular placement. Chest tube placement for right-sided tension pneumothorax dated 12/21/2018. Consultative opinions during hospitalization including Orthopedics for avascular necrosis, interventional radiology for joint aspiration, Infectious Disease for gram-positive bacteremia enterococcus, GI for acute upper GI bleed. Hematology/Oncology for IVIG recommendations in the face of respiratory failure in a myasthenia patient, Pulmonary Critical Care for acute respiratory failure. General Surgery for central venous line placement, as well as chest tube following pneumothorax. HOSPITAL COURSE: Mr. Alcantara was admitted on the night of the for fever and chills. He was subsequently found to have a positive blood culture for Enterococcus and met diagnostic criteria consistent with sepsis. Neurology was consulted, as well as Infectious Disease, making recommendations as per chart. Once the positive blood culture returned, antibiotics were tailored to ampicillin. He was noted to have a precipitously falling hematocrit, being admitted with 11 and 38 and then falling to 9 and 30 requiring GI evaluation. He underwent an EGD demonstrating the presence of a large duodenal ulcer. He was subsequently transferred to the intensive care unit after the procedure for ongoing evaluation. He remained anemic and received 2 units of packed red blood cells. Clinically his H and H failed to respond. He was noted to have bleeding diathesis, including melanous and heme-positive stools, as well as ongoing hematuria. He was noted to be confused and experiencing respiratory difficulty. I was in contact with the neurologist in [place] recommending changing of his myasthenia medicines, including increasing steroids and increasing his Mestinon. We were unable to achieve securing 5 days of sequential IVIG as adjunct therapy for his respiratory distress. Based on followup blood cultures returning as negative, Infectious Disease signed off on the case. Patient became more obtunded. An attempt to place him on BiPAP was unsuccessful secondary to an acute apneic and unresponsive event which turned out to be secondary to spontaneous right-sided pneumothorax. General Surgery was consulted and a chest tube was placed with marked improvement. The patient was subsequently placed on a ventilator and required vasopressor support to maintain his blood pressure. Sputum culture was obtained. Antibiotics were broadened. Sputum culture returned as positive for Enterobacter cloacae, different than the Enterobacter faecalis on admission. Radiology reported an unreported finding of pulmonary embolism on day prior scan. Venous Doppler ultrasound of the lower extremities demonstrated extensive clot burden in the right lower extremity. Based on competing interest with multiple problems including, immunocompromise state, respiratory distress, bleeding ulcer with refractory anemia, sepsis and extensive clot burden of the right lower extremity, it was felt that the patient's prognosis overall was extremely poor. After continuing to decline on the morning of his demise, patient's H and H was 6.2 and 19, and his BUN had climbed to 70. It was mutually agreed with all providers in the family that the patient would be best served with initiation of palliative care. He was extubated in the intensive care unit at approximately 4:30 and spontaneously passed on the floor at 6:54 p.m. and pronounced by myself at 7:33 p.m. As an addendum, upon arrival to the floor patient was found unresponsive without respiratory movement and without auscultated cardiac sounds. Carotid pulses are negative, eyes are fixed and dilated and patient is unresponsive to verbal or painful stimuli, and is therefore pronounced clinically at 7:33 p.m. DISPOSITION: The patient's body will be released to the home in [place]. I have expressed my condolences to the , who is at the bedside. There are no further issues at this time. cc: Jonathan Van,
== END 2018-12-23 18:54 | disposition expired | DRG 871 ==
LOC: 4N 12-11 06:17 → ICU 12-16 18:50 → 3N 12-23 18:15
PROVIDERS: ADMIT Internal Medicine; ATTEND Internal Medicine
CPT/HCPCS: 31500; 36430; 36569; 70490; 71010; 71020; 71045; 71046; 71250; 74178; 76942; 80053; 81001; 82140; 82550; 82784; 82805; 82948; 83540; 83550; 83605; 83735; 83880; 84100; 84134; 84484; 85014; 85018; 85025; 85027; 85379; 85610; 86140; 86850; 86900; 86901; 86920; 87040; 87070; 87077; 87088; 87186; 87205; 89051; 89220; 93005; 93010; 93306; 93970; 94002; 94003; 94660; 94760; 94761; 94799; 99284; A9270; C9113; J0171; J0290; J0330; J0692; J0696; J1170; J1561; J1610; J1650; J1940; J2020; J2060; J2250; J2270; J2370; J2405; J2930; J3010; J3370; J7030; J7040; J7050; J7070; J7500; J7506; J7512; P9016; Q9967; S0164; XXXXX